=== PATIENT | male | born 1955 | race Caucasian/White ===

== ENCOUNTER → 2018-01-11 | Outpatient (CLI) | payer OTHER ==
[2018-01-11 18:00] LABS: BASO % 0.5 %; BASO ABS # 0.05 K/uL (0-0.2); EOS % 9.4 %; EOS ABS # 0.92 K/uL (0-0.5); HEMATOCRIT 28.1 % (42-52); HEMOGLOBIN 9.1 g/dL (14.0-18.0); IG# 0.02 K/uL (0.00-0.02); LYMPH % 21.5 %; LYMPH ABS # 2.11 K/uL (1.2-3.4); MEAN CELL VOLUME 77.8 fL (80-100); MEAN CORPUSCULAR HEMOGLOBIN 25.2 pg (25-34); MEAN CORPUSCULAR HGB CONC 32.4 g/dl (32-36); MEAN PLATELET VOLUME 9.2 fL (7.4-10.4); MONO % 8.4 %; MONO ABS # 0.82 K/uL (0.11-0.59); PLATELET COUNT 364 K/uL (130-400); RED CELL DISTRIBUTION WIDTH CV 17.6 % (11.5-14.5); RED CELL DISTRIBUTION WIDTH SD 49.8 fL (36.4-46.3); WHITE BLOOD COUNT 9.82 K/uL (4.8-10.8)
[2018-01-11 18:27] LABS: BLOOD UREA NITROGEN 11 mg/dl (7-18); CALCIUM 8.4 mg/dl (8.5-10.1); CARBON DIOXIDE 31 mmol/L (21-32); CREATININE 1.25 mg/dl (0.60-1.40); GLUCOSE 98 mg/dl (70-99); SODIUM 137 mmol/L (136-145)
== END | disposition home or self-care (01) ==
LOC: C.LABMFLN 11:53
PROVIDERS: ATTEND Family Medicine
DX: R35.0 Frequency of micturition (principal); D64.9 Anemia, unspecified

== ENCOUNTER → 2018-01-26 | Outpatient (CLI) | payer OTHER ==
[2018-01-26 18:56] LABS: BASO % 0.3 %; BASO ABS # 0.03 K/uL (0-0.2); EOS % 8.1 %; EOS ABS # 0.73 K/uL (0-0.5); HEMATOCRIT 30.1 % (42-52); HEMOGLOBIN 9.7 g/dL (14.0-18.0); IG# 0.02 K/uL (0.00-0.02); LYMPH % 22.1 %; LYMPH ABS # 1.99 K/uL (1.2-3.4); MEAN CELL VOLUME 76.6 fL (80-100); MEAN CORPUSCULAR HEMOGLOBIN 24.7 pg (25-34); MEAN CORPUSCULAR HGB CONC 32.2 g/dl (32-36); MEAN PLATELET VOLUME 9.2 fL (7.4-10.4); MONO ABS # 0.81 K/uL (0.11-0.59); NEUT % 60.3 %; NEUT ABS # 5.43 K/uL (1.4-6.5); PLATELET COUNT 432 K/uL (130-400); RED CELL DISTRIBUTION WIDTH CV 18.8 % (11.5-14.5); RED CELL DISTRIBUTION WIDTH SD 52.8 fL (36.4-46.3); WHITE BLOOD COUNT 9.01 K/uL (4.8-10.8)
== END | disposition home or self-care (01) ==
LOC: C.LABMFLN 11:57
DX: R35.0 Frequency of micturition (principal); D64.9 Anemia, unspecified

== ENCOUNTER → 2018-06-24 | Outpatient (CLI) | payer OTHER ==
[2018-06-24 12:57] LABS: BASO % 0.3 %; BASO ABS # 0.02 K/uL (0-0.2); EOS % 6.4 %; EOS ABS # 0.48 K/uL (0-0.5); HEMATOCRIT 42.3 % (42-52); IG# 0.02 K/uL (0.00-0.02); LYMPH % 27.6 %; LYMPH ABS # 2.07 K/uL (1.2-3.4); MEAN CELL VOLUME 84.4 fL (80-100); MEAN CORPUSCULAR HEMOGLOBIN 27.9 pg (25-34); MEAN CORPUSCULAR HGB CONC 33.1 g/dl (32-36); MEAN PLATELET VOLUME 9.8 fL (7.4-10.4); MONO % 10.4 %; MONO ABS # 0.78 K/uL (0.11-0.59); NEUT ABS # 4.13 K/uL (1.4-6.5); PLATELET COUNT 277 K/uL (130-400); RED CELL DISTRIBUTION WIDTH CV 15.2 % (11.5-14.5); RED CELL DISTRIBUTION WIDTH SD 46.6 fL (36.4-46.3)
[2018-06-24 13:06] LABS: PTT PATIENT 28.7 SECONDS (21.0-31.0)
[2018-06-24 13:38] LABS: ALBUMIN 3.6 gm/dl (3.4-5.0); ALKALINE PHOSPHATASE 65 U/L (45-117); ALT/SGPT 14 U/L (12-78); AST/SGOT 18 U/L (15-37); BLOOD UREA NITROGEN 14 mg/dl (7-18); CARBON DIOXIDE 28 mmol/L (21-32); CREATININE 1.33 mg/dl (0.60-1.40); GLUCOSE 86 mg/dl (70-99); POTASSIUM 4.1 mmol/L (3.5-5.1); SODIUM 135 mmol/L (136-145); TOTAL PROTEIN 7.8 gm/dl (6.4-8.2)
== END | disposition home or self-care (01) ==
LOC: C.LABMFLN 10:08
PROVIDERS: ATTEND Family Medicine
DX: Z01.812 Encounter for preprocedural laboratory examination (principal)

== ENCOUNTER 2021-07-10 15:14 | Inpatient (IN) ==
[2021-07-10] MEDS ORDERED: LORazepam 1 MG TAB PO STA (16:10)
[2021-07-10 16:16] LABS: Basophils # (auto) 0.04 K/uL (0-0.2); Basophils % (auto) 0.4 %; Eosinophils # (auto) 0.01 K/uL (0-0.5); Eosinophils % (auto) 0.1 %; Hematocrit (blood only) 39.5 % (42-52); Hemoglobin 13.2 g/dL (14.0-18.0); Immature Granulocytes # (auto) 0.02 K/uL (0.00-0.02); Immature Granulocytes % (auto) 0.2 %; Lymphocytes # (auto) 0.99 K/uL (1.2-3.4); Lymphocytes % (auto) 8.7 %; Mean Corpuscular Hemoglobin 30.1 pg (25-34); Mean Corpuscular Hgb Conc 33.4 g/dL (32-36); Mean Corpuscular Volume 90.2 fL (80-100); Mean Platelet Volume 9.8 fL (7.4-10.4); Monocytes # (auto) 0.78 K/uL (0.11-0.59); Monocytes % (auto) 6.8 %; Neutrophils # (auto) 9.55 K/uL (1.4-6.5); Neutrophils % (auto) 83.8 %; Platelet Count 216 K/uL (130-400); RDW Coefficient of Variation 18.4 % (11.5-14.5); RDW Standard Deviation 60.7 fL (36.4-46.3); Red Blood Count 4.38 M/uL (4.7-6.1); White Blood Count 11.39 K/uL (4.8-10.8)
[2021-07-10] MEDS ORDERED: MULTI-VITAMIN INFUSION 10 ML, THIAMINE HCL 100 MG, FOLIC ACID 1 MG in SODIUM CHLORIDE 0... IV ONE (16:16)
[2021-07-10] MEDS ORDERED: LORazepam 2 MG/4 ML VIAL IV STA (16:21)
[2021-07-10] MEDS ORDERED: GABAPENTIN 1200MG ALCOHOL WITHDRAWAL LOAD PO STA (16:21)
[2021-07-10] MEDS ORDERED: GABAPENTIN 600 MG TAB PO ONE ×2 (16:21→22:21)
[2021-07-10 16:31] LABS: Appearance Urine Clear (Clear); Bacteria Urine Automated Negative (Negative); Bilirubin Urine Negative (Negative); Blood Urine 2+ (Negative); Cast Urine Automated 0 /lpf (0-5); Color Urine Yellow; Epithelial Cell Urine Auto 20-30 /lpf (0-5); Glucose Urine UA Negative (Negative); Ketones Urine Negative (Negative); Leukocyte Esterase Urine Negative (Negative); Nitrite Urine Negative (Negative); Protein Urine 2+ (Negative); RBC Urine Automated 0-4 /hpf (0-4); Specific Gravity Urine 1.006 (1.000-1.030); Urobilinogen Urine Negative (Negative); pH Urine 6.5 (4.5-7.5)
[2021-07-10 16:33] LABS: Prothrombin Time 10.4 Seconds (9.0-12.0)
[2021-07-10 16:36] LABS: Albumin Level 3.7 gm/dl (3.4-5.0); BUN Creatinine Ratio 8.1 (10-20); Calcium 10.7 mg/dl (8.5-10.1); Est GFR (African American) 29.7 ml/min; Est GFR (Non-African American) 25.7 ml/min; Potassium 3.3 mmol/L (3.5-5.1)
[2021-07-10] MEDS ORDERED: SODIUM CHLORIDE 0.9% 1000ML 500 ML IV ONE (16:43)
[2021-07-10 16:46] LABS: Albumin Globulin Ratio 0.9 (0.9-2); Bilirubin,Total 0.4 mg/dl (0.2-1); Globulin 4.1 gm/dl (2.5-4.0); Thyroid Stimulating Hormone 0.638 uIu/ml (0.300-4.500); Total Protein 7.8 gm/dl (6.4-8.2)
[2021-07-10 16:48] LABS: Amphetamines+Metham, Urine Neg (Neg); Barbiturates, Urine Neg (Neg); Benzodiazepine, Urine Neg (Neg); Cocaine, Urine Neg (Neg); MDMA (Ecstacy), Urine Neg (Neg); Methadone, Urine Neg (Neg); Opiate, Urine Neg (Neg); Phencyclidine, Urine Neg (Neg)
--- NOTE | 2021-07-10 17:27 | Emergency Department Note ---
History of Present Illness General Chief complaint: Detox Request Stated complaint: REFERRED BY DR. VELOZ FOR ALCOHOL DETOX Time Seen by Provider: 07/10/21 16:14 Source: patient and RN notes reviewed Mode of arrival: ambulatory Limitations: no limitations History of Present Illness Provider complaint: Alcohol detox request Maximum Pain Intensity: 5 This patient is a 66-year-old male who presents to the emergency department with complaints of alcohol withdrawal. Patient states he has been cutting back on his alcohol for the last week after years of excessive alcohol intoxication. Patient states he drinks nearly 1/5 of Yoni Olvera daily and smokes cigarettes. He has a remote history many years ago of marijuana and cocaine use but this was many years ago. He denies any illicit substances recently. Patient states he contacted his sister today and expressed his desire to stop drinking. He has been drinking "just enough" to prevent the shakes. He states he has vomited several times over the course of the week, including his milk this morning. Home Medications Medication Instructions Recorded Confirmed Type albuterol sulfate 90 mcg/actuation 2 puffs INHALATION Q4H PRN #18 gm 06/13/19 07/10/21 Rx aerosol inhaler multivitamin (Multiple Vitamins) 1 tab PO QAM 06/13/19 07/10/21 History nitroglycerin 0.4 mg sublingual 0.4 mg SL Q5M PRN #25 tab 06/13/19 07/10/21 Rx tablet omega-3 acid ethyl esters 1 gram 1 cap PO DAILY cap 06/13/19 07/10/21 History capsule cetirizine 10 mg tablet 10 mg PO DAILY PRN #90 tab 07/10/19 07/10/21 Rx promethazine 12.5 mg tablet 12.5 mg PO Q6H PRN #30 tab 12/28/19 07/10/21 Rx erythromycin 5 mg/gram (0.5 %) eye 0.5 inch OPHTHALMIC (EYE) TID #1 g 12/10/20 07/10/21 Rx ointment famotidine 40 mg tablet (Pepcid) 40 mg PO QAM #90 tab 12/10/20 07/10/21 Rx rosuvastatin 40 mg tablet 40 mg PO QPM #90 tab 12/27/20 07/10/21 Rx apixaban 5 mg tablet 5 mg PO BID #60 tab 02/28/21 07/10/21 Rx fluticasone propionate 50 1 spray INTRANASAL BID #18.2 gm 04/15/21 07/10/21 Rx mcg/actuation nasal spray,suspension acyclovir 5 % topical ointment 1 applic TOPICAL .COMPLEX 7 Days 04/23/21 07/10/21 Rx #5 g albuterol sulfate 90 mcg/actuation 2 puff INHALATION Q6H PRN #8.5 g 05/19/21 07/10/21 Rx aerosol inhaler (ProAir HFA) fluticasone fur. 100 mcg-umeclid 1 inh INHALATION DAILY 05/19/21 07/10/21 History 62.5 mcg-vilant 25 mcg inhalat.powder (Trelegy Ellipta) azithromycin 500 mg tablet 500 mg PO DAILY 05/20/21 07/10/21 History chlordiazepoxide HCl 10 mg capsule 10 mg PO TID #30 cap 05/28/21 07/10/21 Rx montelukast 10 mg tablet 10 mg PO HS #90 tab 06/02/21 07/10/21 Rx pantoprazole 40 mg tablet,delayed 40 mg PO DAILY #30 tab 06/18/21 07/10/21 Rx release (Protonix) prednisone 5 mg tablet 5 mg PO QAM #30 tab 07/08/21 07/10/21 Rx amlodipine 2.5 mg tablet 2.5 mg PO DAILY 07/10/21 07/10/21 History folic acid 1 mg tablet 1 mg PO DAILY 07/10/21 07/10/21 History thiamine HCl (vitamin B1) 100 mg 100 mg PO DAILY 07/10/21 07/10/21 History tablet Allergies Allergy/AdvReac Type Severity Reaction Status Date / Time Penicillins Allergy Severe Anaphylaxis Verified 07/10/21 17:49 ciprofloxacin Allergy Intermediate hives & Verified 07/10/21 17:49 nausea codeine AdvReac Mild Vomiting Verified 07/10/21 17:49 hydromorphone [From Dilaudid] AdvReac Mild Vomiting Verified 07/10/21 17:49 metronidazole AdvReac Mild N&V Verified 07/10/21 17:49 morphine AdvReac Mild N&V Verified 07/10/21 17:49 Tetracyclines AdvReac Mild Vomiting Verified 07/10/21 17:49 Past Med/Surg History Medical History Allergic dermatitis reason for daily Prednisone Anemia Asthmatic bronchitis Cervical lymphadenopathy CHF (congestive heart failure) Cholelithiasis Chronic GERD Chronic steroid use due to unexplained hives at times, believed to be an allergy, have not been able to pin-point exact allergy Colon polyps COPD, mild Coronary artery disease involving coronary bypass graft Diverticulitis, colon Empyema lung Hereditary and idiopathic peripheral neuropathy Hiatal hernia History of foreign body in eye metal - removed with a laser Hyperlipidemia Hypertension IBS (irritable bowel syndrome) Incisional hernia Myalgia Myocardial Infarction 2007 - CABG Obstructive sleep apnea non-compliant, no machine Osteoarthrosis Pneumonia hx Pulmonary embolism reason for eliquis, July 2019. Retained ureteral stent Tobacco abuse Urticaria Surgical History H/O hemorrhoidectomy History of cardiac cath History of cataract surgery BILATERAL History of colonoscopy History of coronary artery bypass graft x3 vessels, 2007 at [place], [place]. Follows with Dr. Alexander History of cystoscopy with stent replacements History of dental surgery History of esophagogastroduodenoscopy (EGD) History of heart artery stent x2 prior to 2007. Hx of tonsillectomy S/P exploratory laparotomy with repair of left ureter, partial colon resection and incisional hernia repair with mesh. (November 2018) S/P laparotomy Nov 2017, during colon resection left ureter was connected to colon, attempted to seperate, unable and "nicked" the ureter. Placed a ureteral stent (changed periodically) Status post laparoscopic colectomy (2017) r/t diverticulitis --> turned to open laparotomy due to complications Family History Father Thyroid disease Mother Asthma Heart disease Depression Hypertension Dyslipidemia Thyroid disease Sister Heart disease Asthma Pulmonary embolism Grandfather (Maternal) Myocardial infarction Denies family history of Ovarian cancer Prostate cancer Breast cancer Lung cancer Colorectal cancer Social History (Updated 07/10/21 @ 17:43 by Jaclyn Dowling MD) Smoking Status: Current every day smoker Tobacco Type: Cigarettes packs per day: 0.5; Years Smoked: 46; Cigarettes Per Day: 10-12; Second Hand Exposure: No; Hx Alcohol Use: Yes Alcohol type: beer and hard liquor Alcohol type Comment: 1 /5 bottle Yoni Olvera/day Alcohol Intake Frequency: 4 or More x per/Week Hx Substance Use: No Preferred Language: Bulgarian Communication Ability: Effective Hearing Ability: Normal Data Management Engineer Required: No Beliefs That Will Affect Care: None marital status: Legally Current Living Situation: Family current occupational status: retired How many Children do You have: 2 Feels Safe at Home: Yes Childhood Exposure to Second-Hand Smoke: No Diet Comment: regular caffeine: Yes (2 cups of tea or coffee) during the past year weight has: remained stable Dental Care, Regularly: Yes Physical Activity Frequency: Does not Exercise Seatbelt Use: never Sunscreen Use: No Assistive Devices: Denture - Upper and Glasses Review of Systems See HPI for pertinent positives & negatives. and A total of 10 systems reviewed and were otherwise negative Physical Exam Vital Signs Vital Signs - 24 hr 07/10/21 15:44 07/10/21 16:15 07/10/21 16:21 Temperature 36.9 C Temperature Source Temporal Artery Scan Pulse Rate 100 H 78 Respiratory Rate 18 24 Blood Pressure 122/78 151/73 H Blood Pressure Mean 92 99 Pulse Oximetry 97 96 95 Oxygen Delivery Method Room Air Room Air Room Air Sepsis Recent Fever Within 48 Hours No Sepsis New/Unexplained Change in Mental Status No Sepsis Action Taken by Nursing No Action Required 07/10/21 16:30 07/10/21 17:30 Temperature Temperature Source Pulse Rate 73 71 Respiratory Rate 24 18 Blood Pressure 140/71 135/68 Blood Pressure Mean 94 90 Pulse Oximetry 95 95 Oxygen Delivery Method Room Air Room Air Sepsis Recent Fever Within 48 Hours Sepsis New/Unexplained Change in Mental Status Sepsis Action Taken by Nursing Vital signs reviewed. General: Chronically ill-appearing 66-year-old male, shaky but in no distress. HEENT: No scleral icterus, PERRLA, neck supple. Atraumatic. Cardiovascular: Regular rate and rhythm, no extra sounds. Pulmonary: Clear to auscultation bilaterally, normal work of breathing. Abdomen: Soft, nontender, nondistended, positive bowel sounds. Musculoskeletal: Atraumatic, minimal peripheral edema. Neurologic: Patient awake alert and oriented x 3, positive peripheral tremors Skin: Warm, dry, no rash Course Administered Medications Discontinued Medications Gabapentin (Gabapentin 600 Mg Tab) 1,200 mg PO NOW ONE Stop: 07/10/21 16:22 Last Admin: 07/10/21 16:31 Dose: 1,200 mg Documented by: [id number] Multivitamins 10 ml/ Thiamine HCl 100 mg/ Folic Acid 1 mg/Sodium Chloride 1,011.2 mls @ 1,011.2 mls/hr IV .Q1H ONE Stop: 07/10/21 17:15 Last Admin: 07/10/21 17:43 Dose: 1,011.2 mls/hr Documented by: [id number] Lorazepam (Ativan) 2 mg in 4 mls @ 4 mls/min IV NOW STA Stop: 07/10/21 16:22 Last Admin: 07/10/21 16:31 Dose: 4 mls/min Documented by: [id number] Sodium Chloride (Nss 1000ml) 500 mls @ 999 mls/hr IV .Q31M ONE Stop: 07/10/21 17:13 Last Infusion: 07/10/21 17:54 Dose: 0 mls/hr Documented by: [id number] Admin: 07/10/21 17:06 Dose: 999 mls/hr Documented by: [id number] Lorazepam (Lorazepam 1 Mg Tab) 1 mg PO NOW STA Stop: 07/10/21 16:11 Last Admin: 07/10/21 16:52 Dose: Not Given Documented by: [id number] Medical Decision Making Differential Diagnosis Alcohol intoxication, alcohol withdrawal, dehydration, toxicologic, infection, hypoglycemia, electrolyte abnormalities, cardiac sources, intracerebral event, neurologic, trauma, as well as other pathologies. Medical Records Attestation: I reviewed the patient's medical records. Home Medications Current Medication List: was personally reviewed by me Laboratory Data Attestation: I reviewed the patient's lab results. Result diagrams: 07/10/21 15:57 07/10/21 15:57 Lab Results 07/10/21 07/10/21 07/10/21 Range/Units 15:57 15:57 15:57 WBC 11.39 H (4.8-10.8) K/uL RBC 4.38 L (4.7-6.1) M/uL Hgb 13.2 L (14.0-18.0) g/dL Hct 39.5 L (42-52) % MCV 90.2 (80-100) fL MCH 30.1 (25-34) pg MCHC 33.4 (32-36) g/dL RDW Std Deviation 60.7 H (36.4-46.3) fL RDW Coeff of Ad 18.4 H (11.5-14.5) % Plt Count 216 (130-400) K/uL MPV 9.8 (7.4-10.4) fL Immature Gran % (Auto) 0.2 % Neut % (Auto) 83.8 % Lymph % (Auto) 8.7 % [place] % (Auto) 6.8 % Eos % (Auto) 0.1 % Baso % (Auto) 0.4 % Neut # (Auto) 9.55 H (1.4-6.5) K/uL Lymph # (Auto) 0.99 L (1.2-3.4) K/uL [place] # (Auto) 0.78 H (0.11-0.59) K/uL Eos # (Auto) 0.01 (0-0.5) K/uL Baso # (Auto) 0.04 (0-0.2) K/uL Immature Gran # (Auto) 0.02 (0.00-0.02) K/uL PT (9.0-12.0) Seconds INR (0.9-1.1) Sodium 138 (136-145) mmol/L Potassium 3.3 L (3.5-5.1) mmol/L Chloride 102 (98-107) mmol/L Carbon Dioxide 26 (21-32) mmol/L Anion Gap 10.0 (3-11) BUN 20 H (7-18) mg/dl Creatinine 2.51 H (0.6-1.4) mg/dl Est Cr Clr Drug Dosing 30.0 ml/min Est GFR ( Amer) 29.7 ml/min Est GFR (Non-Af Amer) 25.7 ml/min BUN/Creatinine Ratio 8.1 L (10-20) Glucose 128 H (70-99) mg/dl Calcium 10.7 H (8.5-10.1) mg/dl Total Bilirubin 0.4 (0.2-1) mg/dl AST 66 H (15-37) U/L ALT 60 (12-78) U/L Alkaline Phosphatase 66 (45-117) U/L Total Protein 7.8 (6.4-8.2) gm/dl Albumin 3.7 (3.4-5.0) gm/dl Globulin 4.1 H (2.5-4.0) gm/dl Albumin/Globulin Ratio 0.9 (0.9-2) TSH 0.638 (0.300-4.500) uIu/ml Urine Color Urine Appearance (Clear) Urine pH (4.5-7.5) Ur Specific [place] (1.000-1.030) Urine Protein (Negative) Urine Glucose (UA) (Negative) Urine Ketones (Negative) Urine Blood (Negative) Urine Nitrite (Negative) Urine Bilirubin (Negative) Urine Urobilinogen (Negative) Ur Leukocyte Esterase (Negative) Urine WBC (Auto) (0-5) /hpf Urine RBC (Auto) (0-4) /hpf U Hyaline Cast (Auto) (0-5) /lpf U Epithel Cells (Auto) (0-5) /lpf Urine Bacteria (Auto) (Negative) Urine Opiates Screen (Neg) Ur Methadone, Qual (Neg) Urine Barbiturates (Neg) Ur Phencyclidine (PCP) (Neg) U Amphetamin/Meth Scrn (Neg) MDMA (Ecstasy) Screen (Neg) U Benzodiazepines Scrn (Neg) Ur Cocaine Metabolite (Neg) U Marijuana (THC) Screen (Neg) Ethyl Alcohol mg/dL 234.8 H (0-3) mg/dl COVID-19 Eval Order 07/10/21 07/10/21 07/10/21 Range/Units 16:00 16:00 16:04 WBC (4.8-10.8) K/uL RBC (4.7-6.1) M/uL Hgb (14.0-18.0) g/dL Hct (42-52) % MCV (80-100) fL MCH (25-34) pg MCHC (32-36) g/dL RDW Std Deviation (36.4-46.3) fL RDW Coeff of Ad (11.5-14.5) % Plt Count (130-400) K/uL MPV (7.4-10.4) fL Immature Gran % (Auto) % Neut % (Auto) % Lymph % (Auto) % [place] % (Auto) % Eos % (Auto) % Baso % (Auto) % Neut # (Auto) (1.4-6.5) K/uL Lymph # (Auto) (1.2-3.4) K/uL [place] # (Auto) (0.11-0.59) K/uL Eos # (Auto) (0-0.5) K/uL Baso # (Auto) (0-0.2) K/uL Immature Gran # (Auto) (0.00-0.02) K/uL PT 10.4 (9.0-12.0) Seconds INR 1.0 (0.9-1.1) Sodium (136-145) mmol/L Potassium (3.5-5.1) mmol/L Chloride (98-107) mmol/L Carbon Dioxide (21-32) mmol/L Anion Gap (3-11) BUN (7-18) mg/dl Creatinine (0.6-1.4) mg/dl Est Cr Clr Drug Dosing ml/min Est GFR ( Amer) ml/min Est GFR (Non-Af Amer) ml/min BUN/Creatinine Ratio (10-20) Glucose (70-99) mg/dl Calcium (8.5-10.1) mg/dl Total Bilirubin (0.2-1) mg/dl AST (15-37) U/L ALT (12-78) U/L Alkaline Phosphatase (45-117) U/L Total Protein (6.4-8.2) gm/dl Albumin (3.4-5.0) gm/dl Globulin (2.5-4.0) gm/dl Albumin/Globulin Ratio (0.9-2) TSH (0.300-4.500) uIu/ml Urine Color Yellow Urine Appearance Clear (Clear) Urine pH 6.5 (4.5-7.5) Ur Specific [place] 1.006 (1.000-1.030) Urine Protein 2+ H (Negative) Urine Glucose (UA) Negative (Negative) Urine Ketones Negative (Negative) Urine Blood 2+ H (Negative) Urine Nitrite Negative (Negative) Urine Bilirubin Negative (Negative) Urine Urobilinogen Negative (Negative) Ur Leukocyte Esterase Negative (Negative) Urine WBC (Auto) 1-5 (0-5) /hpf Urine RBC (Auto) 0-4 (0-4) /hpf U Hyaline Cast (Auto) 0 (0-5) /lpf U Epithel Cells (Auto) 20-30 H (0-5) /lpf Urine Bacteria (Auto) Negative (Negative) Urine Opiates Screen Neg (Neg) Ur Methadone, Qual Neg (Neg) Urine Barbiturates Neg (Neg) Ur Phencyclidine (PCP) Neg (Neg) U Amphetamin/Meth Scrn Neg (Neg) MDMA (Ecstasy) Screen Neg (Neg) U Benzodiazepines Scrn Neg (Neg) Ur Cocaine Metabolite Neg (Neg) U Marijuana (THC) Screen Neg (Neg) Ethyl Alcohol mg/dL (0-3) mg/dl COVID-19 Eval Order 07/10/21 Range/Units 17:05 WBC (4.8-10.8) K/uL RBC (4.7-6.1) M/uL Hgb (14.0-18.0) g/dL Hct (42-52) % MCV (80-100) fL MCH (25-34) pg MCHC (32-36) g/dL RDW Std Deviation (36.4-46.3) fL RDW Coeff of Ad (11.5-14.5) % Plt Count (130-400) K/uL MPV (7.4-10.4) fL Immature Gran % (Auto) % Neut % (Auto) % Lymph % (Auto) % [place] % (Auto) % Eos % (Auto) % Baso % (Auto) % Neut # (Auto) (1.4-6.5) K/uL Lymph # (Auto) (1.2-3.4) K/uL [place] # (Auto) (0.11-0.59) K/uL Eos # (Auto) (0-0.5) K/uL Baso # (Auto) (0-0.2) K/uL Immature Gran # (Auto) (0.00-0.02) K/uL PT (9.0-12.0) Seconds INR (0.9-1.1) Sodium (136-145) mmol/L Potassium (3.5-5.1) mmol/L Chloride (98-107) mmol/L Carbon Dioxide (21-32) mmol/L Anion Gap (3-11) BUN (7-18) mg/dl Creatinine (0.6-1.4) mg/dl Est Cr Clr Drug Dosing ml/min Est GFR ( Amer) ml/min Est GFR (Non-Af Amer) ml/min BUN/Creatinine Ratio (10-20) Glucose (70-99) mg/dl Calcium (8.5-10.1) mg/dl Total Bilirubin (0.2-1) mg/dl AST (15-37) U/L ALT (12-78) U/L Alkaline Phosphatase (45-117) U/L Total Protein (6.4-8.2) gm/dl Albumin (3.4-5.0) gm/dl Globulin (2.5-4.0) gm/dl Albumin/Globulin Ratio (0.9-2) TSH (0.300-4.500) uIu/ml Urine Color Urine Appearance (Clear) Urine pH (4.5-7.5) Ur Specific [place] (1.000-1.030) Urine Protein (Negative) Urine Glucose (UA) (Negative) Urine Ketones (Negative) Urine Blood (Negative) Urine Nitrite (Negative) Urine Bilirubin (Negative) Urine Urobilinogen (Negative) Ur Leukocyte Esterase (Negative) Urine WBC (Auto) (0-5) /hpf Urine RBC (Auto) (0-4) /hpf U Hyaline Cast (Auto) (0-5) /lpf U Epithel Cells (Auto) (0-5) /lpf Urine Bacteria (Auto) (Negative) Urine Opiates Screen (Neg) Ur Methadone, Qual (Neg) Urine Barbiturates (Neg) Ur Phencyclidine (PCP) (Neg) U Amphetamin/Meth Scrn (Neg) MDMA (Ecstasy) Screen (Neg) U Benzodiazepines Scrn (Neg) Ur Cocaine Metabolite (Neg) U Marijuana (THC) Screen (Neg) Ethyl Alcohol mg/dL (0-3) mg/dl COVID-19 Eval Order Covid19 at [facility] ECG Data Attestation: I personally reviewed and interpreted this ECG as follows: Indication: + weakness Rate (beats per minute): 74 Rhythm: + normal sinus ECG Intervals/blocks: + Normal QT-c ECG [place]: + Normal ECG ST segments: + Normal ST segments and + Nonspecific ST abnormalities ECG Findings: + Q waves (Anterior); no PACs or no PVCs Blood Pressure Blood Pressure Findings: Elevated blood pressure Blood Pressure Disposition: further management by hospitalist [email or web address] Narrative This patient was evaluate and appeared to be in no significant distress. IV access was obtained and laboratory work was drawn. An order for cardiac humberto toring was placed and the patient is noted to be in a normal sinus rhythm at 78 bpm. Patient was hydrated with normal saline solution 500 cc bolus. A banana bag was ordered. Patient was medicated with 2 mg of IV Ativan and a gabapentin alcohol withdrawal 1200 mg p.o. load. Patient's blood alcohol is noted to be 234 and peripheral shakes are noted. Patient's creatinine is noted to be 2.5 from a baseline of 1.2. Bladder scan reveals 340 mL of urine in the bladder. Patient has significant medical issues including CAD status post CABG, chronic kidney disease, atrial fibrillation, COPD and CHF. He also has a history of PE and heavy tobacco use. I do feel is in the patient's best interest to detox from alcohol while hospitalized. His case was discussed with the hospitalist service who will evaluate the patient for admission and further management. Impression & Plan Alcohol withdrawal, RICH (acute kidney injury) Discharge Plan Visit Data Chief Complaint: Detox Request Stated Complaint: REFERRED BY DR. VELOZ FOR ALCOHOL DETOX ED Provider: Jaclyn Dowling Discharge Problem: Alcohol withdrawal, RICH (acute kidney injury) Forms Stand Alone Forms: Community Health, Suicide Prevention Resources Prescriptions Prescriptions: No Action cetirizine 10 mg tablet 10 mg PO DAILY PRN (Reason: allergy symptoms) Qty: 90 RF: 1 promethazine 12.5 mg tablet 12.5 mg PO Q6H PRN (Reason: nausea and vomiting) Qty: 30 RF: 0 rosuvastatin 40 mg tablet 40 mg PO QPM Qty: 90 RF: 3 apixaban 5 mg tablet 5 mg PO BID Qty: 60 RF: 5 fluticasone propionate 50 mcg/actuation spray,suspension 1 spray intranasal BID Qty: 18.2 RF: 5 azithromycin 500 mg tablet 500 mg PO DAILY RF: 0 chlordiazepoxide HCl 10 mg capsule 10 mg PO TID Qty: 30 RF: 0 montelukast 10 mg tablet 10 mg PO HS Qty: 90 RF: 3 pantoprazole [Protonix] 40 mg tablet,delayed release (DR/EC) 40 mg PO DAILY Qty: 30 RF: 2 prednisone 5 mg tablet 5 mg PO QAM Qty: 30 RF: 0 multivitamin [Multiple Vitamins] tablet 1 tab PO QAM RF: 0 albuterol sulfate 90 mcg/actuation HFA aerosol inhaler 2 puffs inhalation Q4H PRN (Reason: shortness of breath or wheezing) Qty: 18 RF: 5 nitroglycerin 0.4 mg tablet, sublingual 0.4 mg SL Q5M PRN (Reason: chest pain x3 doses, if no relief call 911) Qty: 25 RF: 1 omega-3 acid ethyl esters 1 gram capsule 1 cap PO DAILY RF: 0 famotidine [Pepcid] 40 mg tablet 40 mg PO QAM Qty: 90 RF: 3 acyclovir 5 % ointment 1 applic topical .COMPLEX 7 Days Qty: 5 RF: 0 Trelegy Ellipta 100-62.5-25 mcg blister with device 1 inh inhalation DAILY RF: 0 albuterol sulfate [ProAir HFA] 90 mcg/actuation HFA aerosol inhaler 2 puff inhalation Q6H PRN (Reason: shortness of breath or wheezing) Qty: 8.5 RF: 5 erythromycin 5 mg/gram (0.5 %) ointment 0.5 inch ophthalmic (eye) TID Qty: 1 RF: 0 folic acid 1 mg tablet 1 mg PO DAILY RF: 0 thiamine HCl (vitamin B1) 100 mg tablet 100 mg PO DAILY RF: 0 amlodipine 2.5 mg tablet 2.5 mg PO DAILY RF: 0 Referrals Referrals: Thom Veloz DO [Primary Care Provider] - Discharge Problem: Alcohol withdrawal Qualifiers: Complication of substance-induced condition: uncomplicated Qualified Code(s): F10.230 - Alcohol dependence with withdrawal, uncomplicated
[2021-07-10] MEDS ORDERED: LORazepam 2 MG/4 ML VIAL IV PRN (18:24)
[2021-07-10] MEDS ORDERED: GABAPENTIN 600MG ALCOHOL WITHDRAWAL LOAD PO STA (19:27)
[2021-07-10] MEDS ORDERED: POTASSIUM CHLORIDE CRTAB 20 MEQ TABCR PO ONE (19:48)
--- NOTE | 2021-07-10 20:10 | History & Physical Report ---
Date of Service July 10, 2021 Assessment & Plan (1) Alcohol withdrawal: Plan: Admitted as he endorses he wants to stop drinking - reports 42 years of drinking with 2-3 attempts at stopping - Continue gabapentin and Ativan coverage - He has been on thiamine and folate as prescribed for his discharge from [place] - he was also prescribed Librium as outpatient there as well- could add this on if he needs - With his cardiac disease and if symptoms increase - consider adding on titratable BB for cardiac risk reduction - Banana bag administered in [facility] - (2) Afib: Plan: diagnosed in 2019 and converted in house on sotalol- remains in NSR - He is on Apixaban for his history of PE - No rate controlling agents at this time (3) CAD (coronary artery disease): Plan: As above per HPI - Continue amlodipine for his HTN - Continue rosuvastatin 40 daily - likely not on an AMANDA secondary to his renal function - Consider adding low dose BB in place of his amlodipine if he gets HTN/Tachycardic with his withdraw - add back daily asa- recently stopped as patient stopped taking this (4) Hypertension: Plan: As above (5) CKD (chronic kidney disease), stage III: Plan: As above his baseline PHARMACEUTICAL DETAILER is 1.3-1.5- likely related to his nausea and vomiting with decrease oral intake - Bun is stable - follow renal indices - avoid nephrotoxic medications and if needed, limit exposure time. (6) COPD, mild: Plan: Continue albuterol prn - continue equivalent or his Trelegy daily - Continue his AZT MWF- can likely wean down- started on 13august (7) Obstructive sleep apnea: Plan: Non complaint- follow while in house (8) Cold sore: Plan: Continue his acyclovir as needed (9) Hyperlipidemia: Plan: Continue rosuvastatin 40 mg daily (10) Allergic dermatitis: Plan: Continue prednisone 5mg daily (11) Tremor: Plan: Chronic with his alcohol may confound his AWWS follow total symptomatology. History of Present Illness Primary Care Provider: Thom Babcock DO 66 YOM with past medical history of: CAD, HTN, HLD, Afib(on apixaban), CABG, ETOH abuse, ETOH withdraw, GERD, COPD, allergic rhinitis, DVT/PE, LITA, active smoker, anxiety. Patient comes to the [facility] today as he wishes to stop drinking alcohol, he reports that he has been drinking since he was 14 years old. Mainly drinks beer and liquor. Reports no other drugs and hasn't used any since "many many years ago". He has been trying to cut his drinking down, and only drinks enough to take away his tremors. He has been having some vomiting today, he has quit before but reports he re-lapsed x2. He does not remember ever having a seizure of delirium tremors. He reports his last drink as this morning and his ETOH level is 234 on admisison. Patient was recently discharged from [facility] for a COPD exacerbation and placed on AZT M,W,F schedule. Patient was already started on Gabapentin and Ativan protocol in the EMD. Patient will be admitted for continued treatment and support of his ETOH withdraw he would be high risk for DTs based off his history. Patient had a CABGx3 in 2007 (GOMEZ-LAD, SVG to ramus and RCA). In march he had a stress test that was abnormal, he then had a cardiac cath on 04/16/21. This revealed that the saphenous vein grafts which were reported cannot be cannulated and were not found on aortography and are assumed closed. The CHANTAL graft to the LAD is atretic and nonfunctional distally. The LAD, left circumflex and ramus arteries have nonobstructive disease and are patent. The nondominant right coronary artery is patent. He is continued on medical management. He has also been on prednisone for the past 3-4 months for what he reports as a bump on his chin that will not go away and he has been continually picking at. He has received his COVID vaccine and his test on admission is NEGATIVE. Allergies Allergy/AdvReac Type Severity Reaction Status Date / Time Penicillins Allergy Severe Anaphylaxis Verified 07/10/21 17:49 ciprofloxacin Allergy Intermediate hives & Verified 07/10/21 17:49 nausea codeine AdvReac Mild Vomiting Verified 07/10/21 17:49 hydromorphone [From Dilaudid] AdvReac Mild Vomiting Verified 07/10/21 17:49 metronidazole AdvReac Mild N&V Verified 07/10/21 17:49 morphine AdvReac Mild N&V Verified 07/10/21 17:49 Tetracyclines AdvReac Mild Vomiting Verified 07/10/21 17:49 Home Medications Medication Instructions Recorded Confirmed Type albuterol sulfate 90 mcg/actuation 2 puffs INHALATION Q4H PRN #18 gm 06/13/19 07/10/21 Rx aerosol inhaler multivitamin (Multiple Vitamins) 1 tab PO QAM 06/13/19 07/10/21 History nitroglycerin 0.4 mg sublingual 0.4 mg SL Q5M PRN #25 tab 06/13/19 07/10/21 Rx tablet omega-3 acid ethyl esters 1 gram 1 cap PO DAILY cap 06/13/19 07/10/21 History capsule cetirizine 10 mg tablet 10 mg PO DAILY PRN #90 tab 07/10/19 07/10/21 Rx promethazine 12.5 mg tablet 12.5 mg PO Q6H PRN #30 tab 12/28/19 07/10/21 Rx erythromycin 5 mg/gram (0.5 %) eye 0.5 inch OPHTHALMIC (EYE) TID #1 g 12/10/20 07/10/21 Rx ointment famotidine 40 mg tablet (Pepcid) 40 mg PO QAM #90 tab 12/10/20 07/10/21 Rx rosuvastatin 40 mg tablet 40 mg PO QPM #90 tab 12/27/20 07/10/21 Rx apixaban 5 mg tablet 5 mg PO BID #60 tab 02/28/21 07/10/21 Rx fluticasone propionate 50 1 spray INTRANASAL BID #18.2 gm 04/15/21 07/10/21 Rx mcg/actuation nasal spray,suspension acyclovir 5 % topical ointment 1 applic TOPICAL .COMPLEX 7 Days 04/23/21 07/10/21 Rx #5 g albuterol sulfate 90 mcg/actuation 2 puff INHALATION Q6H PRN #8.5 g 05/19/21 07/10/21 Rx aerosol inhaler (ProAir HFA) fluticasone fur. 100 mcg-umeclid 1 inh INHALATION DAILY 05/19/21 07/10/21 History 62.5 mcg-vilant 25 mcg inhalat.powder (Trelegy Ellipta) azithromycin 500 mg tablet 500 mg PO DAILY 05/20/21 07/10/21 History chlordiazepoxide HCl 10 mg capsule 10 mg PO TID #30 cap 05/28/21 07/10/21 Rx montelukast 10 mg tablet 10 mg PO HS #90 tab 06/02/21 07/10/21 Rx pantoprazole 40 mg tablet,delayed 40 mg PO DAILY #30 tab 06/18/21 07/10/21 Rx release (Protonix) prednisone 5 mg tablet 5 mg PO QAM #30 tab 07/08/21 07/10/21 Rx amlodipine 2.5 mg tablet 2.5 mg PO DAILY 07/10/21 07/10/21 History folic acid 1 mg tablet 1 mg PO DAILY 07/10/21 07/10/21 History thiamine HCl (vitamin B1) 100 mg 100 mg PO DAILY 07/10/21 07/10/21 History tablet Past Med/Surg History Medical History Allergic dermatitis reason for daily Prednisone Anemia Asthmatic bronchitis Cervical lymphadenopathy CHF (congestive heart failure) Cholelithiasis Chronic GERD Chronic steroid use due to unexplained hives at times, believed to be an allergy, have not been able to pin-point exact allergy Colon polyps COPD, mild Coronary artery disease involving coronary bypass graft Diverticulitis, colon Empyema lung Hereditary and idiopathic peripheral neuropathy Hiatal hernia History of foreign body in eye metal - removed with a laser Hyperlipidemia Hypertension IBS (irritable bowel syndrome) Incisional hernia Myalgia Myocardial Infarction 2007 - CABG Obstructive sleep apnea non-compliant, no machine Osteoarthrosis Pneumonia hx Pulmonary embolism reason for eliquis, July 2019. Retained ureteral stent Tobacco abuse Urticaria Surgical History H/O hemorrhoidectomy History of cardiac cath History of cataract surgery BILATERAL History of colonoscopy History of coronary artery bypass graft x3 vessels, 2007 at [place], [place]. Follows with Dr. Alexander History of cystoscopy with stent replacements History of dental surgery History of esophagogastroduodenoscopy (EGD) History of heart artery stent x2 prior to 2007. Hx of tonsillectomy S/P exploratory laparotomy with repair of left ureter, partial colon resection and incisional hernia repair with mesh. (November 2018) S/P laparotomy Nov 2017, during colon resection left ureter was connected to colon, attempted to seperate, unable and "nicked" the ureter. Placed a ureteral stent (changed periodically) Status post laparoscopic colectomy (2017) r/t diverticulitis --> turned to open laparotomy due to complications Family History Father Thyroid disease Mother Asthma Heart disease Depression Hypertension Dyslipidemia Thyroid disease Sister Heart disease Asthma Pulmonary embolism Grandfather (Maternal) Myocardial infarction Denies family history of Ovarian cancer Prostate cancer Breast cancer Lung cancer Colorectal cancer Social History Smoking Status: Current every day smoker Tobacco Type: Cigarettes packs per day: 0.5; Years Smoked: 46; Cigarettes Per Day: 10-12; Second Hand Exposure: No; Hx Alcohol Use: Yes Alcohol type: beer and hard liquor Alcohol type Comment: 1/5 bottle Yoni Olvera/day Alcohol Intake Frequency: 4 or More x per/Week Hx Substance Use: No Preferred Language: Tajik Communication Ability: Effective Hearing Ability: Normal Alcoholic Counselor Required: No Beliefs That Will Affect Care: None marital status: Legally Current Living Situation: Family current occupational status: retired How many Children do You have: 2 Feels Safe at Home: Yes Childhood Exposure to Second-Hand Smoke: No Diet Comment: regular caffeine: Yes (2 cups of tea or coffee) during the past year weight has: remained stable Dental Care, Regularly: Yes Physical Activity Frequency: Does not Exercise Seatbelt Use: never Sunscreen Use: No Assistive Devices: Denture - Upper and Glasses Review of Systems Review of Systems: REVIEW OF SYSTEMS: Constitutional: No fever, sweats or chills Eyes: No diplopia, no worsening or blurred vision ENT: normal hearing, no trouble swallowing Respiratory: (+) chronic cough, sputum, dyspnea at rest or on exertion Cardiovascular: No chest pain, tightness or palpitations Abdomen: No pain, nausea, vomiting, diarrhea or constipation Musculoskeletal: No joint pain, calf pain, swelling Neurologic: No weakness, numbness/tingling, or balance problems Psychiatric: (+) anxiety or depression Skin: (+) rash or itch Physical Exam Physical Exam: PHYSICAL EXAM: General: lightly sedated, easily arouseable, no apparent distress Head: Normocephalic, atraumatic ENT: PERRL, EOMI, no pharyngeal exudate, mucous membranes moist Neuro: AAO x 3, speech clear and appropriate, strength intact bilaterally 5/5, sensation intact and equal all extremities and dermatomes, no pronator drift Chest: equal rise and fall of the chest, no accessory muscle use, no heaves or thrills, scattered rhonchi and mild expiratory wheeze, on room air, Cardiac: Regular rate and rhythm, telemetry reviewed, skin warm dry, cap refill <3 seconds, peripheral pulses +2 no JVD, no murmur, no edema GI: NABS x 4 quadrants, soft, nontender to palpation, no rebound, guarding or tenderness : Spontaneously voiding, no pain, no CVA tenderness, Extremities: Normal inspection, no peripheral edema or erythema, calfs nontender to palpation Psych: Normal mood and affect Skin: scab on chin Results & Data Results & Data ([facility]) Vital Signs (Past 12 Hours) Vital Signs Temp Pulse Resp BP Pulse Ox 07/10/21 18:30 73 18 154/80 H 96 07/10/21 18:00 70 18 146/72 H 96 07/10/21 17:30 75 18 135/68 96 07/10/21 17:00 86 16 133/75 96 07/10/21 16:30 73 24 140/71 95 07/10/21 16:21 78 24 151/73 H 95 07/10/21 16:15 96 07/10/21 15:44 36.9 C 100 H 18 122/78 97 Laboratory Results Abnormal Labs 07/10/21 07/10/21 07/10/21 15:57 15:57 15:57 WBC 11.39 H RBC 4.38 L Hgb 13.2 L Hct 39.5 L RDW Std Deviation 60.7 H RDW Coeff of Ad 18.4 H Neut # (Auto) 9.55 H Lymph # (Auto) 0.99 L Callaway # (Auto) 0.78 H Potassium 3.3 L BUN 20 H Creatinine 2.51 H BUN/Creatinine Ratio 8.1 L Glucose 128 H Calcium 10.7 H AST 66 H Globulin 4.1 H Urine Protein Urine Blood U Epithel Cells (Auto) Ethyl Alcohol mg/dL 234.8 H 07/10/21 16:00 WBC RBC Hgb Hct RDW Std Deviation RDW Coeff of Ad Neut # (Auto) Lymph # (Auto) Callaway # (Auto) Potassium BUN Creatinine BUN/Creatinine Ratio Glucose Calcium AST Globulin Urine Protein 2+ H Urine Blood 2+ H U Epithel Cells (Auto) 20-30 H Ethyl Alcohol mg/dL Diagnostic Findings No reports on admision Medications Administered Discontinued Medications Gabapentin (Gabapentin 600 Mg Tab) 1,200 mg PO NOW ONE Stop: 07/10/21 16:22 Last Admin: 07/10/21 16:31 Dose: 1,200 mg Documented by: [id number] Multivitamins 10 ml/ Thiamine HCl 100 mg/ Folic Acid 1 mg/Sodium Chloride 1,011.2 mls @ 1,011.2 mls/hr IV .Q1H ONE Stop: 07/10/21 17:15 Last Infusion: 07/10/21 18:56 Dose: 0 mls/hr Documented by: [id number] Admin: 07/10/21 17:43 Dose: 1,011.2 mls/hr Documented by: [id number] Lorazepam (Ativan) 2 mg in 4 mls @ 4 mls/min IV NOW STA Stop: 07/10/21 16:22 Last Admin: 07/10/21 16:31 Dose: 4 mls/min Documented by: [id number] Sodium Chloride (Nss 1000ml) 500 mls @ 999 mls/hr IV .Q31M ONE Stop: 07/10/21 17:13 Last Infusion: 07/10/21 17:54 Dose: 0 mls/hr Documented by: [id number] Admin: 07/10/21 17:06 Dose: 999 mls/hr Documented by: [id number] Lorazepam (Lorazepam 1 Mg Tab) 1 mg PO NOW STA Stop: 07/10/21 16:11 Last Admin: 07/10/21 16:52 Dose: Not Given Documented by: [id number] ECG Additional Comments: Normal sinus rhythm Nonspecific ST abnormality compared to previous ECG Code Status & VTE Plan Code Status CODE: FULL VTE: SCDs, apixaban, ambulation VTE Prophylaxis Plan VTE Prophylaxis will be ordered: Yes Supervising Physician Co-Signing Physician Notes 66 y/o M Hx HTN, HLD, CAD, AF, CKD III, COPD, active smoker, ETOH abuse and prior DTs. Presents stating that he would like to detox. He is not exhibiting active signs of withdrawal at the time of admission although he does have an ETOH level of > 250 and was provided with Ativan in the ER. Labs are notable for acute on chronic RF. OE: Pt is having a hard time staying awake at the time of my exam ENT: No erythema or exudates, no thrush Eyes: DEISY, EOMI Head and neck: Normocephalic, atraumatic, No JVD, neck is supple. Chest/heart: Nontender, S1,2, RRR, no murmurs, no gallops Lungs: CTAB, no wheezing or crackles Abdomen: Nontender, nondistended, BS+ Neuro: AAO x 3, speech is clear, no unilateral weakness or loss of sensation, coordination intact Musculoskeletal: No joint inflammation, muscle tenderness, FROM Skin: No acute rashes or ulcers Extremities: No clubbing, cyanosis, edema P: 1) ETOH abuse - expected withdrawal or DTs - placed on lorazepam and was given Gris in the ER. IVF w/glu, thiamine provided. 2) CAD - due to his history of CAD, we will place him on a beta juan manuel for expected withdrawal - no current evidence of ACS - cont statin 3) AF - he is not normally on rate control agents - as above, we have placed him on a beta juan manuel, will hold Apixiban for a few days owing to potential for severe DTs 4) COPD - inhalers PRN 5) HTN, HDL - normally on Norvasc - beta juan manuel provided - cont statin Full code - anticoagulated - add SCDs AM Total time for this admit including review of labs, meds, imaging, records - discussion with pt and ER attending - 50 min PG Care Time/CCT Total # of Minutes Spent Total Time Spent with Patient: Total time spent is greater than 50% in coordination of care (as documented) at patient's floor/unit and/or counseling patient: Coding Level of Care Code 33510 Initial Inpt Care Lvl 3 Diagnoses Alcohol withdrawal F10.230 Complication of substance-induced condition: uncomplicated Obstructive sleep apnea G47.33 CAD (coronary artery disease) I25.10 Cold sore B00.1 COPD, mild J44.9 Hypertension I10 Hyperlipidemia E78.5 Allergic dermatitis L23.9 Tremor R25.1 Afib I48.91 CKD (chronic kidney disease), stage III N18.3 (1) Alcohol withdrawal Complication of substance-induced condition: uncomplicated Qualified Code(s): F10.230 - Alcohol dependence with withdrawal, uncomplicated
[2021-07-10] MEDS ORDERED: NITROGLYCERIN SL 0.4 MG/TAB TAB SL PRN (22:21)
[2021-07-10] MEDS ORDERED: CETIRIZINE HCL 10 MG TABLET PO PRN (22:21)
[2021-07-10] MEDS ORDERED: LORazepam 3 MG/6 ML VIAL IV PRN (22:21)
[2021-07-10] MEDS ORDERED: POLYETHYLENE (MIRALAX) 17 GM PACK PO PRN (22:21)
[2021-07-10] MEDS ORDERED: ERYTHROMYCIN OP OINT 5 MG/GM 3.5 GM TUBE OP SCH (22:21)
[2021-07-10] MEDS ORDERED: ALBUTEROL HFA 8 GM INHALER INH PRN (22:21)
[2021-07-10] MEDS ORDERED: ATIVAN IV ALCOHOL WITHDRAWL IV PRN (22:21)
[2021-07-10] MEDS ORDERED: GABAPENTIN 600 MG TAB PO SCH (22:30)
[2021-07-10] MEDS ORDERED: LACTATED RINGER'S 1,000 ML IV ONE (22:45)
[2021-07-10] MEDS: FLUTICASONE PROPIONATE NA SPR 16 GM BTL SCH (23:30)
[2021-07-10] MEDS: NICOTINE 14 MG/24 HR PATCH TD SCH (23:30)
[2021-07-10] MEDS: ACYCLOVIR 5% OINT 15 GM TUBE EXT SCH (23:31)
[2021-07-10] MEDS: APIXABAN 5 MG TABLET PO SCH (23:31)
[2021-07-10] MEDS: MONTELUKAST SODIUM 10 MG TABLET PO SCH (23:32)
[2021-07-10] MEDS: ROSUVASTATIN CALCIUM 20 MG TAB PO SCH (23:32)
[2021-07-10] MEDS: GABAPENTIN 100 MG CAP PO SCH (23:33)
[2021-07-11] MEDS: LORazepam 1 MG/2 ML VIAL IV PRN ×4 (03:03→22:36)
[2021-07-11] MEDS: GABAPENTIN 100 MG CAP PO SCH (05:27)
[2021-07-11] MEDS: ACYCLOVIR 5% OINT 15 GM TUBE EXT SCH ×5 (06:19→22:36)
[2021-07-11 07:25] LABS: Basophils # (auto) 0.03 K/uL (0-0.2); Basophils % (auto) 0.4 %; Eosinophils # (auto) 0.11 K/uL (0-0.5); Eosinophils % (auto) 1.5 %; Hematocrit (blood only) 32.3 % (42-52); Hemoglobin 10.8 g/dL (14.0-18.0); Immature Granulocytes # (auto) 0.02 K/uL (0.00-0.02); Immature Granulocytes % (auto) 0.3 %; Lymphocytes # (auto) 0.93 K/uL (1.2-3.4); Lymphocytes % (auto) 12.7 %; Mean Corpuscular Hemoglobin 30.1 pg (25-34); Mean Corpuscular Hgb Conc 33.4 g/dL (32-36); Mean Platelet Volume 9.1 fL (7.4-10.4); Monocytes # (auto) 0.85 K/uL (0.11-0.59); Monocytes % (auto) 11.6 %; Neutrophils # (auto) 5.41 K/uL (1.4-6.5); Neutrophils % (auto) 73.5 %; Platelet Count 131 K/uL (130-400); RDW Coefficient of Variation 18.6 % (11.5-14.5); RDW Standard Deviation 61.2 fL (36.4-46.3); Red Blood Count 3.59 M/uL (4.7-6.1); White Blood Count 7.35 K/uL (4.8-10.8)
[2021-07-11] MEDS: amLODIPine BESYLATE 5 MG TAB PO SCH (08:12)
[2021-07-11] MEDS: AZITHROMYCIN 250 MG TAB PO SCH (08:13)
[2021-07-11] MEDS: ASPIRIN 81 MG ECTAB PO SCH (08:13)
[2021-07-11] MEDS: APIXABAN 5 MG TABLET PO SCH ×2 (08:13→20:15)
[2021-07-11] MEDS: FAMOTIDINE 40 MG TABLET PO SCH (08:14)
[2021-07-11] MEDS: FLUTICASONE FUROATE 100MCG 14 PUFFS/INHALER INH SCH (08:15)
[2021-07-11] MEDS: FLUTICASONE PROPIONATE NA SPR 16 GM BTL SCH ×2 (08:15→20:16)
[2021-07-11] MEDS: FOLIC ACID 1 MG TAB PO SCH (08:16)
[2021-07-11] MEDS: PANTOprazole 40 MG TAB PO SCH (08:16)
[2021-07-11] MEDS: THIAMINE HCL 100 MG TAB PO SCH (08:17)
[2021-07-11] MEDS: UMECLIDINIUM/VILANTEROL 62.5/25MCG 7 PUFFS/INHALER INH SCH (08:17)
[2021-07-11] MEDS: predniSONE 5 MG TAB PO SCH (08:17)
[2021-07-11 08:19] LABS: BUN Creatinine Ratio 9.5 (10-20); Calcium 9.4 mg/dl (8.5-10.1); Creatinine Clr Calc Pharmacy 38.2 ml/min; Est GFR (African American) 38.9 ml/min; Est GFR (Non-African American) 33.6 ml/min; Magnesium 1.6 mg/dl (1.8-2.4)
[2021-07-11] MEDS: NICOTINE 14 MG/24 HR PATCH TD SCH (08:32)
[2021-07-11] MEDS ORDERED: GABAPENTIN 600 MG TAB PO SCH ×2 (12:30→16:00)
--- NOTE | 2021-07-11 17:33 | Electrocardiogram Report ---
Test Reason : Blood Pressure : / mmHG Vent. Rate : 074 BPM Atrial Rate : 074 BPM P-R Int : 156 ms QRS Dur : 090 ms QT Int : 364 ms P-R-T Axes : 056 061 073 degrees QTc Int : 404 ms Normal sinus rhythm Nonspecific ST abnormality Abnormal ECG No previous ECGs available Confirmed by Tavo Garcia ([id number]) on 07/11/2021 5:32:54 PM Referred By: ER Confirmed By:Tavo Garcia
[2021-07-11] MEDS: ROSUVASTATIN CALCIUM 20 MG TAB PO SCH (20:16)
[2021-07-11] MEDS: MONTELUKAST SODIUM 10 MG TABLET PO SCH (20:16)
--- NOTE | 2021-07-11 23:14 | Hospitalist Progress Note ---
Date of Service July 11, 2021 Assessment & Plan (1) Alcohol withdrawal: Plan: Admitted as he endorses he wants to stop drinking - reports 42 years of drinking with 2-3 attempts at stopping - Continue gabapentin and Ativan coverage - He has been on thiamine and folate as prescribed for his discharge from [place] - he was also prescribed Librium as outpatient there as well- could add this on if he needs - With his cardiac disease and if symptoms increase - consider adding on titratable BB for cardiac risk reduction - Banana bag administered in EMD will continue above treatment. Withdrawal symptoms appears to be controlled. - (2) Afib: Plan: diagnosed in 2019 and converted in house on sotalol- remains in NSR - He is on Apixaban for his history of PE - No rate controlling agents at this time (3) CAD (coronary artery disease): Plan: As above per HPI - Continue amlodipine for his HTN - Continue rosuvastatin 40 daily - likely not on an AMANDA secondary to his renal function - Consider adding low dose BB in place of his amlodipine if he gets HTN/Tachycardic with his withdraw - add back daily asa- recently stopped as patient stopped taking this (4) Hypertension: Plan: As above (5) CKD (chronic kidney disease), stage III: Plan: As above his baseline LAUNDRY TECH is 1.3-1.5- likely related to his nausea and vomiting with decrease oral intake - Bun is stable - follow renal indices - avoid nephrotoxic medications and if needed, limit exposure time. (6) COPD, mild: Plan: Continue albuterol prn - continue equivalent or his Trelegy daily - Continue his AZT MWF- can likely wean down- started on 13august (7) Obstructive sleep apnea: Plan: Non complaint- follow while in house (8) Cold sore: Plan: Continue his acyclovir as needed (9) Hyperlipidemia: Plan: Continue rosuvastatin 40 mg daily (10) Allergic dermatitis: Plan: Continue prednisone 5mg daily (11) Tremor: Plan: Chronic with his alcohol may confound his AWWS follow total symptomatology. Admission and Anticipated Discharge Date Admission Date: July 10, 2021 Subjective Patient reports no new symptoms. Review of Systems Review of Systems: All systems reviewed & are unremarkable except as noted in HPI & below Physical Exam Physical Exam: General: awake, no apparent distress Head: Normocephalic, atraumatic ENT: PERRL, EOMI, no pharyngeal exudate, mucous membranes moist Neuro: AAO x 3, speech clear Chest: equal rise and fall of the chest, no accessory muscle use, no heaves or thrills, scattered rhonchi and mild expiratory wheeze, on room air, Cardiac: Regular rate and rhythm GI: NABS x 4 quadrants, soft, nontender to palpation, no rebound, guarding or tenderness : Spontaneously voiding, no pain, no CVA tenderness, Extremities: Normal inspection, no peripheral edema or erythema, calfs nontender to palpation Psych: Normal mood and affect Skin: scab on chin Results & Data Results & Data ([facility]) Vital Signs (Past 12 Hours) Vital Signs Temp Pulse Pulse Resp BP Pulse Ox 07/11/21 22:33 36.6 C 74 20 155/4 H 94 07/11/21 19:39 37 C 80 18 151/77 H 94 07/11/21 16:45 92 H 07/11/21 16:10 36.9 C 89 20 128/78 92 07/11/21 11:27 36.9 C 81 16 149/74 H 97 PG Care Time/CCT Total # of Minutes Spent Total Time Spent with Patient: Total time spent is greater than 50% in coordination of care (as documented) at patient's floor/unit and/or counseling patient: Coding Level of Care Code 48132 Subseq Hosp Care Lvl 2 Diagnoses Alcohol withdrawal F10.230 Complication of substance-induced condition: uncomplicated Afib I48.91 CAD (coronary artery disease) I25.10 Hypertension I10 CKD (chronic kidney disease), stage III N18.3 COPD, mild J44.9 Obstructive sleep apnea G47.33 Cold sore B00.1 Hyperlipidemia E78.5 Allergic dermatitis L23.9 Tremor R25.1 Time Spent (min) 25 (1) Alcohol withdrawal Complication of substance-induced condition: uncomplicated Qualified Code(s): F10.230 - Alcohol dependence with withdrawal, uncomplicated
[2021-07-12] MEDS: LORazepam 2 MG/4 ML VIAL IV PRN (00:35)
[2021-07-12 07:55] LABS: Basophils # (auto) 0.02 K/uL (0-0.2); Basophils % (auto) 0.3 %; Eosinophils # (auto) 0.16 K/uL (0-0.5); Eosinophils % (auto) 2.2 %; Hematocrit (blood only) 32.6 % (42-52); Hemoglobin 10.8 g/dL (14.0-18.0); Immature Granulocytes # (auto) 0.02 K/uL (0.00-0.02); Immature Granulocytes % (auto) 0.3 %; Lymphocytes % (auto) 12.1 %; Mean Corpuscular Hemoglobin 29.8 pg (25-34); Mean Corpuscular Hgb Conc 33.1 g/dL (32-36); Mean Corpuscular Volume 90.1 fL (80-100); Mean Platelet Volume 9.3 fL (7.4-10.4); Monocytes # (auto) 0.81 K/uL (0.11-0.59); Monocytes % (auto) 10.9 %; Neutrophils # (auto) 5.53 K/uL (1.4-6.5); Neutrophils % (auto) 74.2 %; Platelet Count 131 K/uL (130-400); RDW Coefficient of Variation 18.1 % (11.5-14.5); RDW Standard Deviation 60.1 fL (36.4-46.3); Red Blood Count 3.62 M/uL (4.7-6.1); White Blood Count 7.44 K/uL (4.8-10.8)
[2021-07-12 08:10] LABS: BUN Creatinine Ratio 10.1 (10-20); Calcium 8.3 mg/dl (8.5-10.1); Est GFR (African American) 43.9 ml/min; Est GFR (Non-African American) 37.9 ml/min; Magnesium 1.4 mg/dl (1.8-2.4); Potassium 2.6 mmol/L (3.5-5.1)
[2021-07-12] MEDS: THIAMINE HCL 100 MG TAB PO SCH (08:55)
[2021-07-12] MEDS: FAMOTIDINE 40 MG TABLET PO SCH (08:55)
[2021-07-12] MEDS: ASPIRIN 81 MG ECTAB PO SCH (08:55)
[2021-07-12] MEDS: FOLIC ACID 1 MG TAB PO SCH (08:55)
[2021-07-12] MEDS: amLODIPine BESYLATE 5 MG TAB PO SCH (08:56)
[2021-07-12] MEDS: UMECLIDINIUM/VILANTEROL 62.5/25MCG 7 PUFFS/INHALER INH SCH (08:56)
[2021-07-12] MEDS: APIXABAN 5 MG TABLET PO SCH ×2 (08:56→20:19)
[2021-07-12] MEDS: FLUTICASONE PROPIONATE NA SPR 16 GM BTL SCH ×2 (08:56→20:19)
[2021-07-12] MEDS: ACYCLOVIR 5% OINT 15 GM TUBE EXT SCH ×5 (09:04→21:21)
[2021-07-12] MEDS: predniSONE 5 MG TAB PO SCH (09:47)
[2021-07-12] MEDS: NICOTINE 14 MG/24 HR PATCH TD SCH (09:47)
[2021-07-12] MEDS: PANTOprazole 40 MG TAB PO SCH (09:47)
[2021-07-12] MEDS: FLUTICASONE FUROATE 100MCG 14 PUFFS/INHALER INH SCH (09:48)
[2021-07-12] MEDS: ACETAMINOPHEN 325 MG TAB PO PRN ×2 (09:53→21:20)
[2021-07-12] MEDS: LORazepam 1 MG/2 ML VIAL IV PRN ×3 (10:16→21:20)
[2021-07-12] MEDS: POTASSIUM CHLORIDE / WTR 10 MEQ/100 ML PLCT IV SCH ×4 (12:44→17:44)
[2021-07-12] MEDS: POTASSIUM CHLORIDE CRTAB 20 MEQ TABCR PO SCH ×2 (15:37→20:19)
[2021-07-12] MEDS ORDERED: GABAPENTIN 400 MG CAP PO SCH (16:00)
[2021-07-12] MEDS ORDERED: GABAPENTIN 600 MG TAB PO SCH (16:30)
[2021-07-12] MEDS: MONTELUKAST SODIUM 10 MG TABLET PO SCH (20:19)
[2021-07-12] MEDS: ROSUVASTATIN CALCIUM 20 MG TAB PO SCH (20:19)
--- NOTE | 2021-07-12 21:37 | Hospitalist Progress Note ---
Date of Service July 12, 2021 Assessment & Plan (1) Alcohol withdrawal: Plan: Admitted as he endorses he wants to stop drinking - reports 42 years of drinking with 2-3 attempts at stopping - Continue gabapentin and Ativan coverage - He has been on thiamine and folate as prescribed for his discharge from [place] - he was also prescribed Librium as outpatient there as well- could add this on if he needs - With his cardiac disease and if symptoms increase - consider adding on titratable BB for cardiac risk reduction - Banana bag administered in EMD will continue above treatment. Tapering gabapentin Withdrawal symptoms appears to be controlled. - (2) Afib: Plan: diagnosed in 2019 and converted in house on sotalol- remains in NSR - He is on Apixaban for his history of PE - No rate controlling agents at this time (3) CAD (coronary artery disease): Plan: As above per HPI - Continue amlodipine for his HTN - Continue rosuvastatin 40 daily - likely not on an AMANDA secondary to his renal function - Consider adding low dose BB in place of his amlodipine if he gets HTN/Tachycardic with his withdraw - add back daily asa- recently stopped as patient stopped taking this (4) Hypertension: Plan: As above (5) CKD (chronic kidney disease), stage III: Plan: As above his baseline [employer] is 1.3-1.5- likely related to his nausea and vomiting with decrease oral intake - Bun is stable - follow renal indices - avoid nephrotoxic medications and if needed, limit exposure time. (6) COPD, mild: Plan: Continue albuterol prn - continue equivalent or his Trelegy daily - Continue his AZT MWF- can likely wean down- started on 13august (7) Obstructive sleep apnea: Plan: Non complaint- follow while in house (8) Cold sore: Plan: Continue his acyclovir as needed (9) Hyperlipidemia: Plan: Continue rosuvastatin 40 mg daily (10) Allergic dermatitis: Plan: Continue prednisone 5mg daily (11) Tremor: Plan: Chronic with his alcohol may confound his AWWS follow total symptomatology. Admission and Anticipated Discharge Date Admission Date: July 10, 2021 Subjective 66 yo male reports feeling fatigued. Review of Systems Review of Systems: All systems reviewed & are unremarkable except as noted in HPI & below Physical Exam Physical Exam: General: awake, no apparent distress Head: Normocephalic, atraumatic ENT: PERRL, EOMI, no pharyngeal exudate, mucous membranes moist Neuro: AAO x 3, speech clear Chest: equal rise and fall of the chest, no accessory muscle use, no heaves or thrills, scattered rhonchi and mild expiratory wheeze, on room air, Cardiac: Regular rate and rhythm GI: NABS x 4 quadrants, soft, nontender to palpation, no rebound, guarding or tenderness : Spontaneously voiding, no pain, no CVA tenderness, Extremities: Normal inspection, no peripheral edema or erythema, calfs nontender to palpation Psych: Normal mood and affect Skin: scab on chin Results & Data Results & Data ([facility]) Vital Signs (Past 12 Hours) Vital Signs Temp Pulse Pulse Pulse Resp BP BP 07/12/21 21:19 36.7 C 84 20 149/84 H 07/12/21 18:39 37 C 85 18 133/85 07/12/21 16:00 79 07/12/21 15:11 36.6 C 80 20 142/79 H 07/12/21 11:36 36.7 C 88 20 127/75 07/12/21 10:11 36.7 C 95 H 18 149/91 H Pulse Ox 07/12/21 21:19 94 07/12/21 18:39 94 07/12/21 16:00 07/12/21 15:11 93 07/12/21 11:36 95 07/12/21 10:11 92 PG Care Time/CCT Total # of Minutes Spent Total Time Spent with Patient: Total time spent is greater than 50% in coordination of care (as documented) at patient's floor/unit and/or counseling patient: Coding Level of Care Code 07436 Subseq Hosp Care Lvl 2 Diagnoses Alcohol withdrawal F10.230 Complication of substance-induced condition: uncomplicated Afib I48.91 CAD (coronary artery disease) I25.10 Hypertension I10 CKD (chronic kidney disease), stage III N18.3 COPD, mild J44.9 Obstructive sleep apnea G47.33 Cold sore B00.1 Hyperlipidemia E78.5 Allergic dermatitis L23.9 Tremor R25.1 Time Spent (min) 25 (1) Alcohol withdrawal Complication of substance-induced condition: uncomplicated Qualified Code(s): F10.230 - Alcohol dependence with withdrawal, uncomplicated
[2021-07-13] MEDS: LORazepam 1 MG/2 ML VIAL IV PRN ×5 (02:07→22:37)
[2021-07-13] MEDS: ACYCLOVIR 5% OINT 15 GM TUBE EXT SCH ×5 (05:49→21:03)
[2021-07-13 07:49] LABS: Basophils # (auto) 0.02 K/uL (0-0.2); Basophils % (auto) 0.3 %; Eosinophils # (auto) 0.22 K/uL (0-0.5); Hemoglobin 11.2 g/dL (14.0-18.0); Immature Granulocytes # (auto) 0.04 K/uL (0.00-0.02); Immature Granulocytes % (auto) 0.5 %; Lymphocytes # (auto) 0.96 K/uL (1.2-3.4); Lymphocytes % (auto) 12.9 %; Mean Corpuscular Hemoglobin 30.3 pg (25-34); Mean Corpuscular Hgb Conc 32.9 g/dL (32-36); Mean Corpuscular Volume 91.9 fL (80-100); Mean Platelet Volume 9.7 fL (7.4-10.4); Monocytes # (auto) 0.66 K/uL (0.11-0.59); Monocytes % (auto) 8.9 %; Neutrophils # (auto) 5.53 K/uL (1.4-6.5); Neutrophils % (auto) 74.4 %; Platelet Count 144 K/uL (130-400); RDW Coefficient of Variation 17.9 % (11.5-14.5); White Blood Count 7.43 K/uL (4.8-10.8)
[2021-07-13] MEDS: APIXABAN 5 MG TABLET PO SCH ×2 (08:19→21:00)
[2021-07-13] MEDS: amLODIPine BESYLATE 5 MG TAB PO SCH (08:20)
[2021-07-13] MEDS: FOLIC ACID 1 MG TAB PO SCH (08:20)
[2021-07-13] MEDS: FAMOTIDINE 40 MG TABLET PO SCH (08:20)
[2021-07-13] MEDS: ASPIRIN 81 MG ECTAB PO SCH (08:20)
[2021-07-13] MEDS: predniSONE 5 MG TAB PO SCH (08:20)
[2021-07-13] MEDS: PANTOprazole 40 MG TAB PO SCH (08:20)
[2021-07-13] MEDS: THIAMINE HCL 100 MG TAB PO SCH (08:20)
[2021-07-13] MEDS: POTASSIUM CHLORIDE CRTAB 20 MEQ TABCR PO SCH ×3 (08:21→21:00)
[2021-07-13] MEDS: FLUTICASONE PROPIONATE NA SPR 16 GM BTL SCH ×2 (08:21→21:02)
[2021-07-13] MEDS: UMECLIDINIUM/VILANTEROL 62.5/25MCG 7 PUFFS/INHALER INH SCH (08:21)
[2021-07-13] MEDS: FLUTICASONE FUROATE 100MCG 14 PUFFS/INHALER INH SCH (08:21)
[2021-07-13 08:26] LABS: Albumin Level 2.6 gm/dl (3.4-5.0); BUN Creatinine Ratio 8.5 (10-20); Bilirubin Direct 0.2 mg/dl (0-0.2); Calcium 8.6 mg/dl (8.5-10.1); Creatinine Clr Calc Pharmacy 44.5 ml/min; Est GFR (African American) 46.3 ml/min; Magnesium 1.5 mg/dl (1.8-2.4); Potassium 3.5 mmol/L (3.5-5.1)
[2021-07-13 08:41] LABS: Bilirubin,Total 0.5 mg/dl (0.2-1); Phosphorus 1.4 mg/dl (2.5-4.9); Total Protein 5.9 gm/dl (6.4-8.2)
[2021-07-13] MEDS ORDERED: POTASSIUM PHOS 3 MMOL/1 ML INFUSION IV STA (08:42)
[2021-07-13] MEDS ORDERED: POTASSIUM PHOSPHATE 21 MMOL in SODIUM CHLORIDE 0.9% 500 ML IV ONE (09:15)
[2021-07-13] MEDS: NICOTINE 14 MG/24 HR PATCH TD SCH (09:56)
[2021-07-13] MEDS: MAGNESIUM SULFATE / D5W 1 GM/100 ML BAG IV SCH ×2 (10:39→13:05)
[2021-07-13] MEDS ORDERED: GABAPENTIN 100 MG CAP PO SCH (16:00)
[2021-07-13] MEDS: MONTELUKAST SODIUM 10 MG TABLET PO SCH (21:00)
--- NOTE | 2021-07-13 21:00 | Hospitalist Progress Note ---
Date of Service July 13, 2021 Assessment & Plan (1) Alcohol withdrawal: Plan: Admitted as he endorses he wants to stop drinking - reports 42 years of drinking with 2-3 attempts at stopping - Continue gabapentin and Ativan coverage - He has been on thiamine and folate as prescribed for his discharge from [place] - he was also prescribed Librium as outpatient there as well- could add this on if he needs - With his cardiac disease and if symptoms increase - consider adding on titratable BB for cardiac risk reduction - Banana bag administered in EMD will continue above treatment. Patient appears more drowsy. Tapering gabapentin, will try to limit benzos as symptoms are controlled. . - (2) Afib: Plan: diagnosed in 2019 and converted in house on sotalol- remains in NSR - He is on Apixaban for his history of PE - No rate controlling agents at this time (3) CAD (coronary artery disease): Plan: As above per HPI - Continue amlodipine for his HTN - Continue rosuvastatin 40 daily - likely not on an AMANDA secondary to his renal function - Consider adding low dose BB in place of his amlodipine if he gets HTN/Tachycardic with his withdraw - add back daily asa- recently stopped as patient stopped taking this (4) Hypertension: Plan: As above (5) CKD (chronic kidney disease), stage III: Plan: As above his baseline [employer] is 1.3-1.5- likely related to his nausea and vomiting with decr ease oral intake - Bun is stable - follow renal indices - avoid nephrotoxic medications and if needed, limit exposure time. (6) COPD, mild: Plan: Continue albuterol prn - continue equivalent or his Trelegy daily - Continue his AZT MWF- can likely wean down- started on 13august (7) Obstructive sleep apnea: Plan: Non complaint- follow while in house (8) Cold sore: Plan: Continue his acyclovir as needed (9) Hyperlipidemia: Plan: Continue rosuvastatin 40 mg daily (10) Allergic dermatitis: Plan: Continue prednisone 5mg daily (11) Tremor: Plan: Chronic with his alcohol may confound his AWWS follow total symptomatology. (12) Acute renal failure: Plan: responding to IVF. will continue to monitor. Admission and Anticipated Discharge Date Admission Date: July 10, 2021 Subjective Patient reports no new symptoms. Review of Systems Review of Systems: All systems reviewed & are unremarkable except as noted in HPI & below Physical Exam Physical Exam: General: awake, no apparent distress Head: Normocephalic, atraumatic ENT: PERRL, EOMI, no pharyngeal exudate, mucous membranes moist Chest: CTA BL on room air, Cardiac: Regular rate and rhythm GI: NABS x 4 quadrants, soft, nontender to palpation, no rebound, guarding or tenderness : Spontaneously voiding, no pain, no CVA tenderness, Extremities: Normal inspection, no peripheral edema or erythema, calfs nontender to palpation Skin: scab on chin Results & Data Results & Data ([facility]) Vital Signs (Past 12 Hours) Vital Signs Temp Pulse Pulse Resp BP BP Pulse Ox 07/13/21 18:20 37.3 C 88 18 121/75 93 07/13/21 15:38 36.8 C 91 H 20 123/75 93 07/13/21 15:00 94 H 07/13/21 13:00 36.9 C 98 H 18 116/71 91 PG Care Time/CCT Total # of Minutes Spent Total Time Spent with Patient: Total time spent is greater than 50% in coordination of care (as documented) at patient's floor/unit and/or counseling patient: Coding Level of Care Code 37098 Subseq Hosp Care Lvl 2 Diagnoses Alcohol withdrawal F10.230 Complication of substance-induced condition: uncomplicated Afib I48.91 CAD (coronary artery disease) I25.10 Hypertension I10 CKD (chronic kidney disease), stage III N18.3 COPD, mild J44.9 Obstructive sleep apnea G47.33 Cold sore B00.1 Hyperlipidemia E78.5 Allergic dermatitis L23.9 Tremor R25.1 Acute renal failure N17.9 Time Spent (min) 25 (1) Alcohol withdrawal Complication of substance-induced condition: uncomplicated Qualified Code(s): F10.230 - Alcohol dependence with withdrawal, uncomplicated
[2021-07-13] MEDS: ROSUVASTATIN CALCIUM 20 MG TAB PO SCH (21:01)
[2021-07-14] MEDS ORDERED: GABAPENTIN 600 MG TAB PO SCH (04:30)
[2021-07-14 07:32] LABS: Hematocrit (blood only) 33.3 % (42-52); Hemoglobin 11.1 g/dL (14.0-18.0); Mean Corpuscular Hemoglobin 30.6 pg (25-34); Mean Corpuscular Hgb Conc 33.3 g/dL (32-36); Mean Corpuscular Volume 91.7 fL (80-100); Mean Platelet Volume 10.2 fL (7.4-10.4); Platelet Count 152 K/uL (130-400); RDW Coefficient of Variation 18.1 % (11.5-14.5); Red Blood Count 3.63 M/uL (4.7-6.1); White Blood Count 8.59 K/uL (4.8-10.8)
[2021-07-14] MEDS: PANTOprazole 40 MG TAB PO SCH (07:55)
[2021-07-14] MEDS: FOLIC ACID 1 MG TAB PO SCH (07:55)
[2021-07-14] MEDS: AZITHROMYCIN 250 MG TAB PO SCH (07:55)
[2021-07-14] MEDS: THIAMINE HCL 100 MG TAB PO SCH (07:55)
[2021-07-14] MEDS: predniSONE 5 MG TAB PO SCH (07:55)
[2021-07-14] MEDS: POTASSIUM CHLORIDE CRTAB 20 MEQ TABCR PO SCH (07:56)
[2021-07-14] MEDS: ASPIRIN 81 MG ECTAB PO SCH (07:56)
[2021-07-14] MEDS: APIXABAN 5 MG TABLET PO SCH ×2 (07:56→20:20)
[2021-07-14] MEDS: FAMOTIDINE 40 MG TABLET PO SCH (07:56)
[2021-07-14] MEDS: ACYCLOVIR 5% OINT 15 GM TUBE EXT SCH ×5 (07:57→23:39)
[2021-07-14] MEDS: amLODIPine BESYLATE 5 MG TAB PO SCH (07:57)
[2021-07-14] MEDS: UMECLIDINIUM/VILANTEROL 62.5/25MCG 7 PUFFS/INHALER INH SCH (07:58)
[2021-07-14] MEDS: FLUTICASONE FUROATE 100MCG 14 PUFFS/INHALER INH SCH (07:58)
[2021-07-14] MEDS: FLUTICASONE PROPIONATE NA SPR 16 GM BTL SCH ×2 (07:59→20:21)
[2021-07-14] MEDS: NICOTINE 14 MG/24 HR PATCH TD SCH ×2 (08:01→08:18)
[2021-07-14 08:06] LABS: BUN Creatinine Ratio 8.1 (10-20); Calcium 8.4 mg/dl (8.5-10.1); Creatinine Clr Calc Pharmacy 49.9 ml/min; Est GFR (African American) 53.3 ml/min; Magnesium 1.9 mg/dl (1.8-2.4); Potassium 3.4 mmol/L (3.5-5.1)
[2021-07-14 08:25] LABS: Phosphorus 1.5 mg/dl (2.5-4.9)
--- NOTE | 2021-07-14 08:39 | Hospitalist Progress Note ---
Date of Service July 14, 2021 Assessment & Plan (1) Ambulatory dysfunction: Plan: Unclear acute vs. chronic Given neck pain and possible trauma will get MRI cervical spine B1, B12 and folate levels Start IV thiamine for possible Wernicke's treatment following level taken. PT/OT (2) Alcohol withdrawal: Plan: Admitted as he endorses he wants to stop drinking - reports 42 years of drinking with 2-3 attempts at stopping - Gabapentin taper finished. AWSS 4-7 [07/13] with Lorazepam total 5mg IV given last 24 hours - Continue PRN lorazepam 1-3mg IV per AWSS (3) Afib: Plan: diagnosed in 2019 and converted in house on sotalol- remains in NSR - He is on Apixaban for his history of PE - No rate controlling agents at this time (4) CAD (coronary artery disease): Plan: As above per HPI - Continue amlodipine for his HTN - Continue rosuvastatin 40 daily - likely not on an AMANDA secondary to his renal function - Consider adding low dose BB in place of his amlodipine if he gets HTN/Tachycardic with his withdraw - add back daily asa- recently stopped as patient stopped taking this (5) Hypertension: Plan: As above (6) CKD (chronic kidney disease), stage III: Plan: At baseline (7) COPD, mild: Plan: Continue albuterol prn - continue equivalent or his Trelegy daily - Continue his AZT MWF- can likely wean down- started on 27 June (8) Obstructive sleep apnea: Plan: Non complaint- follow while in house (9) Cold sore: Plan: Continue his acyclovir as needed (10) Hyperlipidemia: Plan: Continue rosuvastatin 40 mg daily (11) Allergic dermatitis: Plan: Continue prednisone 5mg daily (12) Tremor: Plan: Chronic with his alcohol May confound his AWWS follow total symptomatology. (13) Acute renal failure: Plan: Resolved. Responding to IVF. Will continue to monitor. Admission and Anticipated Discharge Date Admission Date: July 10, 2021 Subjective No significant agitation or tremors. Reports significant balance issues and weakness in all 4 extremities. Unable to give a me a good history of his symptoms but also reports neck and back pain. No radicular pains. Diplopia present only since he has come into hospital. Review of Systems Review of Systems: All systems reviewed & are unremarkable except as noted in HPI & below Physical Exam Constitutional: WD/WN, vitals as above Eyes: + anicteric sclerae and EOM intact bilaterally (reports diplopia with all eye movements); normal pupil size and no nystagmus Respiratory: normal respiratory effort, lungs clear to auscultation Cardiovascular: Rate/Rhythm: regular rate and regular rhythm Heart Sounds: no murmur Gastrointestinal (Abdomen): Percussion/Palpation: abdomen soft; abdomen nontender Psychiatric: A+Ox3, euthymic affect Results & Data Results & Data ([facility]) Vital Signs (Past 12 Hours) Vital Signs Temp Pulse Pulse Resp BP BP Pulse Ox 07/14/21 07:51 37.4 C 100 H 20 128/81 91 07/14/21 03:15 37 C 95 H 20 135/82 91 07/14/21 00:00 112 H 07/13/21 23:23 37.1 C 71 16 123/77 94 07/13/21 22:00 Pulse Ox 07/14/21 07:51 07/14/21 03:15 07/14/21 00:00 07/13/21 23:23 07/13/21 22:00 93 PG Care Time/CCT Total # of Minutes Spent Total Time Spent with Patient: Total time spent is greater than 50% in coordination of care (as documented) at patient's floor/unit and/or counseling patient: Coding Level of Care Code 85086 Subseq Hosp Care Lvl 2 Diagnoses Alcohol withdrawal F10.230 Complication of substance-induced condition: uncomplicated Afib I48.91 CAD (coronary artery disease) I25.10 Hypertension I10 CKD (chronic kidney disease), stage III N18.3 COPD, mild J44.9 Obstructive sleep apnea G47.33 Cold sore B00.1 Hyperlipidemia E78.5 Allergic dermatitis L23.9 Tremor R25.1 Acute renal failure N17.9 Ambulatory dysfunction R26.2 (1) Alcohol withdrawal Complication of substance-induced condition: uncomplicated Qualified Code(s): F10.230 - Alcohol dependence with withdrawal, uncomplicated
[2021-07-14] MEDS: POT PHOSPHATE MONOBASIC W/ SOD TAB PO SCH ×4 (10:13→20:20)
[2021-07-14] MEDS: LORazepam 1 MG/2 ML VIAL IV PRN ×2 (14:39→19:55)
[2021-07-14 14:52] LABS: Folate (Folic Acid) > 20.00 ng/ml (>5.38); Vitamin B12 589 pg/ml (193-986)
--- NOTE | 2021-07-14 16:08 | XRay Report ---
BONY ORBITS 3 VIEWS CLINICAL HISTORY: MRI clearance. FINDINGS: 3 views of the bony orbits are obtained. No prior studies are available for comparison at t he time of dictation. There is no radiodense/metallic foreign body seen in the region of the bony orb its. The bony orbits are intact as imaged. The visualized paranasal sinuses and the mastoid air cells appear clear. The imaged calvarium appears intact. IMPRESSION: There is no radiodense/metallic foreign body seen in the region of the bony orbits. ACT 112: Negative or not required by law. Electronically signed by: Feliciano Chawla M.D. 07/14/2021 4:06 PM
--- NOTE | 2021-07-14 17:23 | Magnetic Resonance Report ---
CERVICAL SPINE MRI HISTORY: neck pain, bilateral extremity weakness, ?stenosis TECHNIQUE: Multiplanar multisequence MRI of the cervical spine was performed without the use of contr ast. COMPARISON STUDY: None. FINDINGS: There are partially visualized bilateral mastoid effusions. There is mild motion artifact. Straightening of the upper cervical spine. No fracture or subluxation. Prevertebral soft tissues and the C1-C2 interval are intact. The visualized posterior fossa is unremarkable. The cervical spinal co rd is normal and course, caliber, and signal intensity. Mild disc space narrowing at C4-C5 and C5-C6. No epidural fluid collections. C2-C3: No significant central canal or neural foraminal narrowing. C3-C4: No significant central canal narrowing. Bilateral uncovertebral facet hypertrophy resulting in moderate bilateral neural foraminal narrowing. C4-C5: Small broad-based posterior disc osteophyte complex without significant central canal narrowin g. There appears to be severe right and moderate left neural foraminal narrowing due to the uncoverte bral hypertrophy. C5-C6: Small broad-based posterior disc osteophyte complex without significant central canal narrowin g. There is moderate bilateral neural foraminal narrowing. C6-C7: No significant central canal or neural foraminal narrowing. C7-T1: No significant central canal or neural foraminal narrowing. IMPRESSION: 1. No fracture or subluxation within the cervical spine. 2. Mild disc space narrowing at C4-C5 and C5-C6. 3. Suboptimal evaluation due to the motion artifact. However, there are no disc herniations. No signi ficant central canal narrowing. 4. Bilateral neural foraminal narrowing as described above. ACT 112: Negative or not required by law. Electronically signed by: Andrea Bustamante M.D. 07/14/2021 5:22 PM
[2021-07-14] MEDS: THIAMINE HCL 500 MG in 0.9 % SODIUM CHLORIDE 100 ML IV SCH (20:19)
[2021-07-14] MEDS: MONTELUKAST SODIUM 10 MG TABLET PO SCH (20:20)
[2021-07-14] MEDS: ROSUVASTATIN CALCIUM 20 MG TAB PO SCH (20:21)
[2021-07-14] MEDS: LORazepam 2 MG/4 ML VIAL IV PRN (20:40)
[2021-07-15] MEDS: LORazepam 1 MG/2 ML VIAL IV PRN ×4 (02:09→21:43)
[2021-07-15] MEDS: amLODIPine BESYLATE 5 MG TAB PO SCH (08:28)
[2021-07-15] MEDS: ACYCLOVIR 5% OINT 15 GM TUBE EXT SCH ×5 (08:28→21:58)
[2021-07-15] MEDS: FLUTICASONE FUROATE 100MCG 14 PUFFS/INHALER INH SCH (08:29)
[2021-07-15] MEDS: POT PHOSPHATE MONOBASIC W/ SOD TAB PO SCH ×4 (08:29→21:35)
[2021-07-15] MEDS: FLUTICASONE PROPIONATE NA SPR 16 GM BTL SCH ×2 (08:29→21:33)
[2021-07-15] MEDS: ASPIRIN 81 MG ECTAB PO SCH (08:29)
[2021-07-15] MEDS: APIXABAN 5 MG TABLET PO SCH ×2 (08:29→21:34)
[2021-07-15] MEDS: NICOTINE 14 MG/24 HR PATCH TD SCH (08:29)
[2021-07-15] MEDS: predniSONE 5 MG TAB PO SCH (08:29)
[2021-07-15] MEDS: UMECLIDINIUM/VILANTEROL 62.5/25MCG 7 PUFFS/INHALER INH SCH (08:29)
[2021-07-15] MEDS: FOLIC ACID 1 MG TAB PO SCH (08:29)
[2021-07-15] MEDS: THIAMINE HCL 100 MG TAB PO SCH (08:29)
[2021-07-15] MEDS: FAMOTIDINE 40 MG TABLET PO SCH (08:29)
[2021-07-15] MEDS: PANTOprazole 40 MG TAB PO SCH (08:29)
[2021-07-15 08:52] LABS: BUN Creatinine Ratio 8.9 (10-20); Calcium 8.1 mg/dl (8.5-10.1); Creatinine Clr Calc Pharmacy 47.8 ml/min; Est GFR (African American) 50.5 ml/min; Est GFR (Non-African American) 43.6 ml/min; Magnesium 1.3 mg/dl (1.8-2.4); Potassium 3.1 mmol/L (3.5-5.1)
[2021-07-15 08:53] LABS: Phosphorus 2.2 mg/dl (2.5-4.9)
[2021-07-15] MEDS: THIAMINE HCL 500 MG in 0.9 % SODIUM CHLORIDE 100 ML IV SCH ×3 (10:49→21:33)
[2021-07-15] MEDS: ACETAMINOPHEN 325 MG TAB PO PRN (11:25)
[2021-07-15] MEDS: MAGNESIUM OXIDE 400 MG TAB PO SCH ×2 (13:01→21:34)
[2021-07-15] MEDS: POTASSIUM CHLORIDE CRTAB 20 MEQ TABCR PO SCH ×2 (13:01→21:34)
[2021-07-15] MEDS: MAGNESIUM SULFATE / D5W 1 GM/100 ML BAG IV SCH ×2 (13:01→15:22)
--- NOTE | 2021-07-15 15:05 | XRay Report ---
XR chest 1V portable CLINICAL HISTORY: altered mental state ?pneumonia COMPARISON STUDY: No previous studies for comparison. FINDINGS: There are median sternotomy wires and mediastinal surgical clips. There is no evidence for pulmonary edema. Biapical opacities are nonspecific but favor scarring. Right basilar opacity is note d. Minimal left basilar opacity is present. There is mild elevation of the right hemidiaphragm. IMPRESSION: 1. Right basilar opacity which favors pneumonia. Atelectasis could appear similar although is conside red less likely. Radiographic follow-up is recommended to ensure resolution. 2. Biapical opacities are nonspecific which favor scarring. ACT 112: Negative or not required by law. Electronically signed by: Gaston Nettles M.D. 07/15/2021 3:04 PM
--- NOTE | 2021-07-15 15:15 | Hospitalist Progress Note ---
Date of Service July 15, 2021 Assessment & Plan (1) Altered mental state: Plan: Significant worsening overnight with x1 fever (although retest was normal) ?lorazepam use ?alcohol withdrawal/hallucinosis No CT head on admission therefore will get this now No CXR on admission therefore will also get this UA - protein, blood and epithelial cells, will get CK to assess for rhabdomyolysis given lack of RBCs. Protein/Cr ratio pending. Possible Wernicke's/Korsakoffs - start IV thiamine 500mg TID 07/14, continue for three days (2) Ambulatory dysfunction: Plan: CT head - pending MRI cervical spine without spinal stenosis B1 level pending although this was taken after Banana bag given in ER therefore not training representative - IV thiamine as above B12 and folate levels WNL PT/OT (3) Electrolyte abnormality: Plan: Replace Mg, K and PO as needed Repeat daily levels until stable. (4) Alcohol withdrawal: Plan: Admitted as he endorses he wants to stop drinking - currently having hallucinosis - Gabapentin taper finished. AWSS 5-10 [07/14] with Lorazepam total 4 mg IV given last 24 hours - Continue PRN lorazepam 1-3mg IV per AWSS (5) Afib: Plan: diagnosed in 2019 and converted in house on sotalol- remains in NSR - He is on Apixaban for his history of PE - No rate controlling agents at this time - history of sick sinus syndrome (6) CAD (coronary artery disease): Plan: As above per HPI - Continue amlodipine for his HTN - Continue rosuvastatin 40 daily - likely not on an AMANDA secondary to his renal function - add back daily asa- recently stopped as patient stopped taking this (7) Hypertension: Plan: As above (8) CKD (chronic kidney disease), stage III: Plan: At baseline (9) COPD, mild: Plan: Continue albuterol prn - continue equivalent or his Trelegy daily - Continue his AZT MWF- can likely wean down- started on 27 June (10) Obstructive sleep apnea: Plan: Intolerant to CPAP (11) Cold sore: Plan: Continue his acyclovir as needed (12) Hyperlipidemia: Plan: Continue rosuvastatin 40 mg daily (13) Allergic dermatitis: Plan: Continue prednisone 5mg daily - unclear history regarding this, recommend dermatology follow up (14) Tremor: Plan: Chronic with his alcohol May confound his AWWS follow total symptomatology. (15) Acute renal failure: Plan: Resolved. Monitor off IV fluids. Will continue to monitor. Admission and Anticipated Discharge Date Admission Date: July 10, 2021 Subjective Appears more lethargic today. having hallucinations and seeing people in the room that are not there. Unable to open both eyes for me to follow one step commands or examine for diplopia. Falls asleep easily. Did not participate with OT. Review of Systems Review of Systems: Unobtainable due to cognitive status Physical Exam Constitutional: WD/WN, vitals as above Eyes: + anicteric sclerae and EOM intact bilaterally (unable to assess diplopia due to confusion); normal pupil size and no nystagmus Respiratory: normal respiratory effort, lungs clear to auscultation Cardiovascular: Rate/Rhythm: regular rhythm and + tachycardic Heart Sounds: no murmur Gastrointestinal (Abdomen): Percussion/Palpation: abdomen soft; abdomen nontender Neurologic: moves all extremities, awake and + confused; no focal motor deficits (no lateralizing deficit) Psychiatric: Orientation: alert and oriented to person; + not oriented to place and + not oriented to time Eye Contact: + fair eye contact Results & Data Results & Data ([facility]) Vital Signs (Past 12 Hours) Vital Signs Temp Pulse Pulse Resp BP Pulse Ox 07/15/21 11:00 36.4 C L 97 H 22 119/74 92 07/15/21 07:34 97 H 07/15/21 07:00 37.0 C 97 H 22 126/77 92 PG Care Time/CCT Total # of Minutes Spent Total Time Spent with Patient: Total time spent is greater than 50% in coordination of care (as documented) at patient's floor/unit and/or counseling patient: Coding Level of Care Code 30990 Subseq Hosp Care Lvl 3 Diagnoses Ambulatory dysfunction R26.2 Alcohol withdrawal F10.230 Complication of substance-induced condition: uncomplicated Afib I48.91 CAD (coronary artery disease) I25.10 Hypertension I10 CKD (chronic kidney disease), stage III N18.3 COPD, mild J44.9 Obstructive sleep apnea G47.33 Cold sore B00.1 Hyperlipidemia E78.5 Allergic dermatitis L23.9 Tremor R25.1 Acute renal failure N17.9 Altered mental state R41.82 Electrolyte abnormality E87.8 (1) Alcohol withdrawal Complication of substance-induced condition: uncomplicated Qualified Code(s): F10.230 - Alcohol dependence with withdrawal, uncomplicated
--- NOTE | 2021-07-15 15:24 | CT Scan Report ---
CT SCAN OF THE BRAIN WITHOUT IV CONTRAST CLINICAL HISTORY: Change in mental status. COMPARISON STUDY: No priors. TECHNIQUE: Unenhanced axial CT scan of the brain is performed from the vertex to the skull base. A do se lowering technique was utilized adhering to the principles of ALARA. CT DOSE: 853.38 mGy.cm FINDINGS: Brain parenchyma: There are age-related involutional changes noting mild subcortical and periventric ular microangiopathic change. There is no hemorrhage, mass effect, or evidence of acute territorial i schemia by CT criteria. Singh-white matter differentiation is preserved. No extra-axial fluid collecti on is seen. Ventricles, sulci, cisterns: Prominent secondary to involutional change. Intracranial vasculature: There is atherosclerotic calcification of the cavernous carotid and vertebr al arteries. Calvarium: Unremarkable. Sinuses and mastoids: The =paranasal sinuses are clear. There are bilateral mastoid effusions. Orbits: The bony orbits are grossly intact. There are bilateral ocular lens implants. IMPRESSION: There is no hemorrhage, mass effect, or evidence of acute territorial ischemia by CT etienne perez. ACT 112: Negative or not required by law. Electronically signed by: Feliciano Chawla M.D. 07/15/2021 3:22 PM
[2021-07-15] MEDS ORDERED: levoFLOXacin/D5W 750 MG/150 ML BAG IV SCH (16:00)
[2021-07-15] MEDS: ROSUVASTATIN CALCIUM 20 MG TAB PO SCH (21:37)
[2021-07-15] MEDS: MONTELUKAST SODIUM 10 MG TABLET PO SCH (21:59)
[2021-07-16] MEDS: ACETAMINOPHEN 325 MG TAB PO PRN (00:39)
[2021-07-16 07:23] LABS: Basophils # (auto) 0.02 K/uL (0-0.2); Basophils % (auto) 0.2 %; Eosinophils # (auto) 0.34 K/uL (0-0.5); Eosinophils % (auto) 3.9 %; Hematocrit (blood only) 30.6 % (42-52); Hemoglobin 10.1 g/dL (14.0-18.0); Immature Granulocytes # (auto) 0.01 K/uL (0.00-0.02); Immature Granulocytes % (auto) 0.1 %; Lymphocytes # (auto) 1.21 K/uL (1.2-3.4); Lymphocytes % (auto) 13.7 %; Mean Corpuscular Hemoglobin 30.2 pg (25-34); Mean Corpuscular Volume 91.6 fL (80-100); Mean Platelet Volume 9.3 fL (7.4-10.4); Monocytes # (auto) 0.91 K/uL (0.11-0.59); Monocytes % (auto) 10.3 %; Neutrophils # (auto) 6.32 K/uL (1.4-6.5); Neutrophils % (auto) 71.8 %; Platelet Count 166 K/uL (130-400); RDW Coefficient of Variation 18.1 % (11.5-14.5); RDW Standard Deviation 59.9 fL (36.4-46.3); Red Blood Count 3.34 M/uL (4.7-6.1); White Blood Count 8.81 K/uL (4.8-10.8)
[2021-07-16] MEDS: ACYCLOVIR 5% OINT 15 GM TUBE EXT SCH ×5 (07:37→23:31)
[2021-07-16] MEDS: POT PHOSPHATE MONOBASIC W/ SOD TAB PO SCH ×4 (07:38→23:31)
[2021-07-16] MEDS: MAGNESIUM OXIDE 400 MG TAB PO SCH ×2 (07:38→23:31)
[2021-07-16] MEDS: THIAMINE HCL 100 MG TAB PO SCH (07:38)
[2021-07-16] MEDS: APIXABAN 5 MG TABLET PO SCH ×2 (07:38→22:57)
[2021-07-16] MEDS: PANTOprazole 40 MG TAB PO SCH (07:39)
[2021-07-16] MEDS: predniSONE 5 MG TAB PO SCH (07:39)
[2021-07-16] MEDS: FLUTICASONE FUROATE 100MCG 14 PUFFS/INHALER INH SCH (07:39)
[2021-07-16] MEDS: FLUTICASONE PROPIONATE NA SPR 16 GM BTL SCH ×2 (07:39→23:31)
[2021-07-16] MEDS: FAMOTIDINE 40 MG TABLET PO SCH (07:40)
[2021-07-16] MEDS: amLODIPine BESYLATE 5 MG TAB PO SCH (07:40)
[2021-07-16] MEDS: ASPIRIN 81 MG ECTAB PO SCH (07:40)
[2021-07-16] MEDS: NICOTINE 14 MG/24 HR PATCH TD SCH (07:42)
[2021-07-16] MEDS: FOLIC ACID 1 MG TAB PO SCH (07:42)
[2021-07-16] MEDS: UMECLIDINIUM/VILANTEROL 62.5/25MCG 7 PUFFS/INHALER INH SCH (07:43)
[2021-07-16] MEDS: POTASSIUM CHLORIDE CRTAB 20 MEQ TABCR PO SCH ×3 (07:43→23:31)
[2021-07-16 07:53] LABS: Albumin Level 2.4 gm/dl (3.4-5.0); BUN Creatinine Ratio 10.9 (10-20); Est GFR (African American) 58.2 ml/min; Est GFR (Non-African American) 50.2 ml/min; Potassium 3.4 mmol/L (3.5-5.1)
[2021-07-16 07:55] LABS: Albumin Globulin Ratio 0.7 (0.9-2); Bilirubin,Total 0.5 mg/dl (0.2-1); Globulin 3.6 gm/dl (2.5-4.0); Phosphorus 2.3 mg/dl (2.5-4.9)
[2021-07-16] MEDS: LORazepam 1 MG/2 ML VIAL IV PRN ×2 (07:55→23:26)
[2021-07-16] MEDS: THIAMINE HCL 500 MG in 0.9 % SODIUM CHLORIDE 100 ML IV SCH ×3 (09:15→23:26)
[2021-07-16 12:45] LABS: Creatinine Urine Random 77.4 mg/dl; Protein Creatinine Ratio Urine 1.3 (0-0.2); Total Protein Urine Random 99.9 mg/dl (0-11.9)
--- NOTE | 2021-07-16 14:43 | Hospitalist Progress Note ---
Date of Service July 16, 2021 Assessment & Plan (1) Altered mental state: Plan: Improving today CT head negative UA - protein, blood and epithelial cells CK negative Suspect Wernicke's Korsakoffs (2) Wernicke encephalopathy: Plan: Improvement in diplopia fits this diagnosis. B1 level taken after Banana bag given in ER therefore not office services representative Unfortunately suspect some degree of Korsakoffs in addition since hallucinations appear to be continuing IV thiamine 500mg TID for 3 days (last day 07/17) (3) Aspiration pneumonia: Plan: Continue Levaquin SLT to reassess patient (4) Orthostatic hypotension: Plan: Stop amlodipine (5) Ambulatory dysfunction: Plan: Given bladder/bowel incontinence will get lumbar spine MRI to rule out cauda equina although suspect this is unlikely CT head - negative MRI cervical spine without spinal stenosis B1 level pending although this was taken after Banana bag given in ER therefore not office services representative - IV thiamine as above B12 and folate levels WNL PT/OT (6) Electrolyte abnormality: Plan: Replace Mg, K and PO as needed Repeat daily levels until stable. (7) Alcohol withdrawal: Plan: Admitted as he endorses he wants to stop drinking - currently having hallucinosis - Gabapentin taper finished. AWSS 5-10 [07/14] with Lorazepam total 4 mg IV given last 24 hours - Continue PRN lorazepam 1-3mg IV per AWSS (8) Afib: Plan: diagnosed in 2019 and converted in house on sotalol- remains in NSR - He is on Apixaban for his history of PE - No rate controlling agents at this time - history of sick sinus syndrome (9) CAD (coronary artery disease): Plan: As above per HPI - Continue amlodipine for his HTN - Continue rosuvastatin 40 daily - likely not on an AMANDA secondary to his renal function - add back daily asa- recently stopped as patient stopped taking this (10) Hypertension: Plan: As above (11) CKD (chronic kidney disease), stage III: Plan: At baseline (12) COPD, mild: Plan: Continue albuterol prn - continue equivalent or his Trelegy daily - Continue his AZT MWF- can likely wean down- started on 27 June (13) Obstructive sleep apnea: Plan: Intolerant to CPAP (14) Cold sore: Plan: Continue his acyclovir as needed (15) Hyperlipidemia: Plan: Continue rosuvastatin 40 mg daily (16) Allergic dermatitis: Plan: Continue prednisone 5mg daily - unclear history regarding this (?hives), recommend dermatology follow up (17) Tremor: Plan: Chronic with his alcohol May confound his AWWS follow total symptomatology. (18) Acute renal failure: Plan: Resolved. Monitor off IV fluids. Will continue to monitor. Admission and Anticipated Discharge Date Admission Date: July 10, 2021 Subjective Improved mentation today. Reports his diplopia has resolved. Continues to see people who are not there in the room. Reports loss of bladder and bowel incontinence. No significant change in his strength/balance. Orthostatic with OT this morning. Lorazepam 4mg given in last 24 hours. Review of Systems Review of Systems: All systems reviewed & are unremarkable except as noted in HPI & below Physical Exam Constitutional: WD/WN, vitals as above Eyes: + anicteric sclerae and EOM intact bilaterally (no diplopia); normal pupil size and no nystagmus Respiratory: normal respiratory effort, lungs clear to auscultation Cardiovascular: Rate/Rhythm: regular rate and regular rhythm Heart Sounds: no murmur Gastrointestinal (Abdomen): Percussion/Palpation: abdomen soft; abdomen nontender Neurologic: moves all extremities, awake and + confused; no focal motor deficits (no lateralizing deficit) Speech / Cognition: normal speech Coordination: + abnormal [id number] test and + abnormal [id number] test Psychiatric: Orientation: alert, oriented to person and oriented to place; + not oriented to time Eye Contact: + fair eye contact Motor Behavior: + psychomotor agitation Speech: normal rate/rhythm/volume of speech Affect: + anxious affect Hallucinations: + visual hallucinations Results & Data Results & Data ([facility]) Vital Signs (Past 12 Hours) Vital Signs Temp Pulse Pulse Resp BP Pulse Ox 07/16/21 11:36 37.0 C 91 H 20 102/67 94 07/16/21 07:42 36.9 C 87 16 123/76 94 07/16/21 07:28 88 PG Care Time/CCT Total # of Minutes Spent Total Time Spent with Patient: Total time spent is greater than 50% in coordination of care (as documented) at patient's floor/unit and/or counseling patient: Coding Level of Care Code 64425 Subseq Hosp Care Lvl 3 Diagnoses Altered mental state R41.82 Ambulatory dysfunction R26.2 Electrolyte abnormality E87.8 Alcohol withdrawal F10.230 Complication of substance-induced condition: uncomplicated Afib I48.91 CAD (coronary artery disease) I25.10 Hypertension I10 CKD (chronic kidney disease), stage III N18.3 COPD, mild J44.9 Obstructive sleep apnea G47.33 Cold sore B00.1 Hyperlipidemia E78.5 Allergic dermatitis L23.9 Tremor R25.1 Acute renal failure N17.9 Wernicke encephalopathy E51.2 Aspiration pneumonia J69.0 Orthostatic hypotension I95.1 (1) Alcohol withdrawal Complication of substance-induced condition: uncomplicated Qualified Code(s): F10.230 - Alcohol dependence with withdrawal, uncomplicated
[2021-07-16] MEDS: levoFLOXacin/D5W 750 MG/150 ML BAG IV SCH (16:11)
[2021-07-16] MEDS ORDERED: LORazepam 2 MG/4 ML VIAL IV PRN ×2 (21:16→21:35)
[2021-07-16] MEDS ORDERED: LORazepam 3 MG/6 ML VIAL IV PRN (21:35)
[2021-07-16] MEDS ORDERED: ATIVAN IV ALCOHOL WITHDRAWL IV PRN (21:35)
[2021-07-16] MEDS: ROSUVASTATIN CALCIUM 20 MG TAB PO SCH (22:56)
[2021-07-16] MEDS: MONTELUKAST SODIUM 10 MG TABLET PO SCH (22:57)
[2021-07-17] MEDS: ACYCLOVIR 5% OINT 15 GM TUBE EXT SCH ×5 (05:44→22:21)
[2021-07-17 07:09] LABS: Albumin Level 2.4 gm/dl (3.4-5.0); BUN Creatinine Ratio 10.2 (10-20); Calcium 7.9 mg/dl (8.5-10.1); Creatinine Clr Calc Pharmacy 51.7 ml/min; Est GFR (African American) 57.7 ml/min; Est GFR (Non-African American) 49.8 ml/min; Magnesium 1.8 mg/dl (1.8-2.4); Potassium 3.6 mmol/L (3.5-5.1)
[2021-07-17 07:11] LABS: Albumin Globulin Ratio 0.7 (0.9-2); Bilirubin,Total 0.4 mg/dl (0.2-1); Globulin 3.6 gm/dl (2.5-4.0); Phosphorus 2.1 mg/dl (2.5-4.9)
--- NOTE | 2021-07-17 08:21 | Magnetic Resonance Report ---
MRI OF THE LUMBAR SPINE WITHOUT CONTRAST CLINICAL HISTORY: loss of bowel/bladder control, b/l LE weakness COMPARISON STUDY: No previous studies for comparison. TECHNIQUE: Utilizing a 1.5 Renae magnet and dedicated coil, multiplanar, [facility]iecho [facility] was performed without IV contrast. FINDINGS: For purposes of numbering on this exam, the L5-S1 disc space is assigned to axial image 28 of 30. Nico tebral body heights are maintained. There are a few Schmorl's nodes within lumbar spine. There is no intracanalicular mass or fluid collection. The conus terminates at the upper L2 level. Paravertebral soft tissues are unremarkable. There is no suspicious marrow replacement. The axial images are signif icantly compromised by motion artifact. The sagittal images are diagnostic. L1-2: The central canal and neural foramen are patent. L2-3: The central canal and neural foramen are patent. There is mild facet arthrosis. L3-4: The central canal and neural foramen are patent. There is mild facet arthrosis. L4-5: There is a central annular tear. There is no central canal stenosis. There may be a tiny centra l disc protrusion. There is mild facet arthrosis. The neural foramen are patent. L5-S1: Facet arthrosis is present. There is mild disc bulge. The central canal is patent. Left neural foramen is patent. There is moderate narrowing of the right neural foramen. IMPRESSION: 1. No acute process within the lumbar spine by MRI. Exam compromised by motion artifact however sagit milton images diagnostic. 2. Patent central canal. Moderate narrowing of the right L5-S1 neural foramen, as described above. 2. Mild multilevel degenerative disc disease and mild to moderate facet arthrosis. ACT 112: Negative or not required by law. Electronically signed by: Gaston Nettles M.D. 07/17/2021 8:20 AM
[2021-07-17] MEDS: ASPIRIN 81 MG ECTAB PO SCH (08:49)
[2021-07-17] MEDS: POT PHOSPHATE MONOBASIC W/ SOD TAB PO SCH (08:49)
[2021-07-17] MEDS: APIXABAN 5 MG TABLET PO SCH ×2 (08:50→21:12)
[2021-07-17] MEDS: PANTOprazole 40 MG TAB PO SCH (08:50)
[2021-07-17] MEDS: MAGNESIUM OXIDE 400 MG TAB PO SCH (08:50)
[2021-07-17] MEDS: FAMOTIDINE 40 MG TABLET PO SCH (08:50)
[2021-07-17] MEDS: predniSONE 5 MG TAB PO SCH (08:51)
[2021-07-17] MEDS: UMECLIDINIUM/VILANTEROL 62.5/25MCG 7 PUFFS/INHALER INH SCH (08:51)
[2021-07-17] MEDS: FLUTICASONE PROPIONATE NA SPR 16 GM BTL SCH ×2 (08:51→21:13)
[2021-07-17] MEDS: THIAMINE HCL 100 MG TAB PO SCH (08:51)
[2021-07-17] MEDS: FOLIC ACID 1 MG TAB PO SCH (08:51)
[2021-07-17] MEDS: FLUTICASONE FUROATE 100MCG 14 PUFFS/INHALER INH SCH (08:52)
[2021-07-17] MEDS: THIAMINE HCL 500 MG in 0.9 % SODIUM CHLORIDE 100 ML IV SCH ×3 (08:52→21:30)
[2021-07-17] MEDS: POTASSIUM CHLORIDE CRTAB 20 MEQ TABCR PO SCH (08:52)
[2021-07-17] MEDS: NICOTINE 14 MG/24 HR PATCH TD SCH (09:16)
--- NOTE | 2021-07-17 11:38 | Hospitalist Progress Note ---
Date of Service July 17, 2021 Assessment & Plan (1) Altered mental state: Plan: Reviewing course overall appears improvedcontinue high-dose thiamine 1 more day (2) Wernicke encephalopathy: Plan: Improvement in diplopia fits this diagnosis. B1 level taken after Banana bag given in ER therefore not bilingual inside sales representative Unfortunately suspect some degree of Korsakoffs in addition since hallucinations appear to be continuing IV thiamine 500mg TID for 3 days (last day 07/17) (3) Aspiration pneumonia: Plan: Not convincing per my review; noted on LevaquinI did not change for now; incentive spirometry (4) Orthostatic hypotension: Plan: Likely combination of deconditioning and alcoholic neuropathy possiblydoes not need antihypertensives in any case (5) Ambulatory dysfunction: Plan: At present PT/OT; noted history of bladder and bowel incontinence; MRI lumbar spine noncontributory MRI brain might be more valuableordered; 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 (7) Alcohol withdrawal: Plan: Should be off withdrawal; noted lorazepam reinstituted; await psychiatry inputconsulted per recommendation of liaison, very reasonable (8) Afib: Plan: diagnosed in 2019 and converted in house on sotalol- remains in NSR - He is on Apixaban for his history of PE - No rate controlling agents at this time - history of sick sinus syndrome (9) CAD (coronary artery disease): Plan: Continue chewable aspirin; statin on hold while n.p.o. as much as possible (10) Hypertension: Plan: Blood pressure goodfollow-up without amlodipine (11) CKD (chronic kidney disease), stage III: Plan: Renal function stable; noted proteinuriacan follow (12) COPD, mild: Plan: No evidence of exacerbationfollow clinically and albuterol as needed as needed (13) Obstructive sleep apnea: Plan: Intolerant to CPAP (14) Cold sore: Plan: Continue his acyclovir as needed (15) Hyperlipidemia: Plan: Held statin while n.p.o. as much as possible; lipid panel (16) Allergic dermatitis: Plan: Continue prednisone 5mg daily - unclear history regarding this (?hives), recommend dermatology follow up (17) Tremor: Plan: Chronic with his alcohol May confound his AWWS follow total symptomatology. (18) Acute renal failure: Plan: Resolved. Monitor off IV fluids. Will continue to monitor. (19) Oropharyngeal dysphagia: Plan: Speech therapy recommended n.p.o. except sips and they recommend ENT and GI consultlikely to be oropharyngeal but consults requested Admission and Anticipated Discharge Date Admission Date: July 10, 2021 Subjective First time meeting patient no complaints; awake and alert though tremulous . Physical Exam Physical Exam: Constitutional and general: No acute distress as such though looks chronically unwell, looks biologic age Head and face: No puffiness, atraumatic Eyes: No scleral icterus, extraocular movements normal Neck: Supple, no JVD Musculoskeletal: No acute joint swelling, no bony abnormalities Skin/dermatologic/integument: No rash, no purpura Hematologic and lymphatic: pallor +, no petechia Gastrointestinal/abdomen: Nondistended, soft, nonacute Neurologic: Cranial nerves intact, nonfocal; tremulous Psychiatry: Awake, alert, communicative Cardiovascular: Heart rhythm regular, no rub, no murmur, no gallop Respiratory: Chest movements equal, no use of accessory muscles, no adventitious sounds Extremities: No edema, no cyanosis Results & Data Results & Data ([facility]) Vital Signs (Past 12 Hours) Vital Signs Temp Pulse Pulse Resp BP Pulse Ox 07/17/21 07:30 87 07/17/21 07:00 37.4 C 93 H 20 110/66 93 07/17/21 03:00 36.7 C 89 18 120/75 95 07/17/21 00:00 91 H 07/16/21 23:47 36.4 C L 91 H 16 121/74 94 Laboratory Results Laboratory Results - last 24 hr 07/16/21 07/17/21 12:15 06:13 Sodium 138 Potassium 3.6 Chloride 111 H Carbon Dioxide 20 L Anion Gap 8.0 BUN 15 Creatinine 1.45 H Est Cr Clr Drug Dosing 51.7 Est GFR ( Amer) 57.7 Est GFR (Non-Af Amer) 49.8 BUN/Creatinine Ratio 10.2 Glucose 84 Calcium 7.9 L Phosphorus 2.1 L Magnesium 1.8 Total Bilirubin 0.4 AST 31 ALT 27 Alkaline Phosphatase 59 Total Protein 6.0 L Albumin 2.4 L Globulin 3.6 Albumin/Globulin Ratio 0.7 L Ur Random Creatinine 77.4 U Random Total Protein 99.9 H Protein/Creatinin Ratio 1.3 H PG Care Time/CCT Total # of Minutes Spent Total Time Spent with Patient: Total time spent is greater than 50% in coordination of care (as documented) at patient's floor/unit and/or counseling patient: Coding Level of Care Code 90554 Subseq Hosp Care Lvl 3 Diagnoses Altered mental state R41.82 Wernicke encephalopathy E51.2 Aspiration pneumonia J69.0 Orthostatic hypotension I95.1 Ambulatory dysfunction R26.2 Electrolyte abnormality E87.8 Alcohol withdrawal F10.230 Complication of substance-induced condition: uncomplicated Afib I48.91 CAD (coronary artery disease) I25.10 Hypertension I10 CKD (chronic kidney disease), stage III N18.3 COPD, mild J44.9 Obstructive sleep apnea G47.33 Cold sore B00.1 Hyperlipidemia E78.5 Allergic dermatitis L23.9 Tremor R25.1 Acute renal failure N17.9 Oropharyngeal dysphagia R13.12 (1) Alcohol withdrawal Complication of substance-induced condition: uncomplicated Qualified Code(s): F10.230 - Alcohol dependence with withdrawal, uncomplicated
--- NOTE | 2021-07-17 11:55 | Gastrointestinal Consultation ---
Date of Consultation July 17, 2021 Assessment & Plan (1) Gagging episode: 66 year old medically complex male admitted w/ Wernicke encephalopathy and medical detox, GI asked to evaluate for dysphagia and gagging/vomiting with attempted PO intake. He has history of bad oral ivonne in December and notes sore mouth, tongue and intermittent dysphagia in addition to gagging. No acute indication for EGD as he had this test 6 months ago Would medically optimize before EGD unless emergently indicated Perhaps some of his symptoms are secondary to residual ivonne infection as he remains on PO and inhaled steroids Consider empiric nystatin swish and swallow and diflucan Would continue PO PPI 40 mg daily and add pepcid 20 mg in the evening Can arrange OP EGD if symptoms persist Thank you for allowing us to participate in the care of this patient. Please call with any acute changes, questions or concerns. Please see addendum below with additional recommendation from my supervising physician. Supervising Physician Co-Signing Physician Notes Consult for ? dysphagia CLAIMS DIRECTOR results reviewed PE - in active withdrawal, thrush noted on his tongue Per chart review- concerns for korsakoff's syndrome Given his current state of withdrawal, he is also on eliquis, with thrus present- would optimize him from a medical standpoint. Treat thrush with diflucan and also nystatin swish and swallow. Outpatient EGD can be considered in the future if off eliquis and also once he is more optimized from an alcohol/medical standpoint. He can continue with a pureed diet for now, supplemental boost shakes prn. History of Present Illness Reason for Consultation: dysphagia see CLAIMS DIRECTOR report Requesting Physician: Rodger Attending Physician: Angela Soares MD History of Present Illness 66 year old male with history of CAD, HTN, HLD, Afib anticoagulated, CABG, ETOH abuse, ETOH withdraw, GERD, COPD, allergic rhinitis, DVT/PE, LITA, active smoker, anxiety admitted for medical detox, Wernicke encephalopathy GI asked to evaluate for dysphagia. Pt was seen and evaluated, chart reviewed. Poor historian but notes he has been having bad GERD and inability to tolerate PO secondary to gagging and emesis with attempted PO for a few weeks. Suggests sometimes if he is able to swallow food will get hung up. Notes a lot of burning, regurgitation. Suggests sore throat, sore mouth and tongue today. Denies abdominal pain but is hungry. No nausea. No vomiting unless attempting PO intake. Denies black/blood stools. Video swallow 2020: no aspiration EGD 2020: schatztki ring, small HH, oral yeast Allergies Allergy/AdvReac Type Severity Reaction Status Date / Time Penicillins Allergy Severe Anaphylaxis Verified 07/10/21 17:49 ciprofloxacin Allergy Intermediate hives & Verified 07/10/21 17:49 nausea strawberry Allergy Hives Verified 07/11/21 14:20 codeine AdvReac Mild Vomiting Verified 07/10/21 17:49 hydromorphone [From Dilaudid] AdvReac Mild Vomiting Verified 07/10/21 17:49 metronidazole AdvReac Mild N&V Verified 07/10/21 17:49 morphine AdvReac Mild N&V Verified 07/10/21 17:49 Tetracyclines AdvReac Mild Vomiting Verified 07/10/21 17:49 Home Medications Medication Instructions Recorded Confirmed Type albuterol sulfate 90 mcg/actuation 2 puffs INHALATION Q4H PRN #18 gm 06/13/19 07/10/21 Rx aerosol inhaler multivitamin (Multiple Vitamins) 1 tab PO QAM 06/13/19 07/10/21 History nitroglycerin 0.4 mg sublingual 0.4 mg SL Q5M PRN #25 tab 06/13/19 07/10/21 Rx tablet omega-3 acid ethyl esters 1 gram 1 cap PO DAILY cap 06/13/19 07/10/21 History capsule cetirizine 10 mg tablet 10 mg PO DAILY PRN #90 tab 07/10/19 07/10/21 Rx promethazine 12.5 mg tablet 12.5 mg PO Q6H PRN #30 tab 12/28/19 07/10/21 Rx erythromycin 5 mg/gram (0.5 %) eye 0.5 inch OPHTHALMIC (EYE) TID #1 g 12/10/20 07/10/21 Rx ointment famotidine 40 mg tablet (Pepcid) 40 mg PO QAM #90 tab 12/10/20 07/10/21 Rx rosuvastatin 40 mg tablet 40 mg PO QPM #90 tab 12/27/20 07/10/21 Rx apixaban 5 mg tablet 5 mg PO BID #60 tab 02/28/21 07/10/21 Rx fluticasone propionate 50 1 spray INTRANASAL BID #18.2 gm 04/15/21 07/10/21 Rx mcg/actuation nasal spray,suspension acyclovir 5 % topical ointment 1 applic TOPICAL .COMPLEX 7 Days 04/23/21 07/10/21 Rx #5 g albuterol sulfate 90 mcg/actuation 2 puff INHALATION Q6H PRN #8.5 g 05/19/21 07/10/21 Rx aerosol inhaler (ProAir HFA) fluticasone fur. 100 mcg-umeclid 1 inh INHALATION DAILY 05/19/21 07/10/21 History 62.5 mcg-vilant 25 mcg inhalat.powder (Trelegy Ellipta) azithromycin 500 mg tablet 500 mg PO DAILY 05/20/21 07/10/21 History chlordiazepoxide HCl 10 mg capsule 10 mg PO TID #30 cap 05/28/21 07/10/21 Rx montelukast 10 mg tablet 10 mg PO HS #90 tab 06/02/21 07/10/21 Rx pantoprazole 40 mg tablet,delayed 40 mg PO DAILY #30 tab 06/18/21 07/10/21 Rx release (Protonix) prednisone 5 mg tablet 5 mg PO QAM #30 tab 07/08/21 07/10/21 Rx amlodipine 2.5 mg tablet 2.5 mg PO DAILY 07/10/21 07/10/21 History folic acid 1 mg tablet 1 mg PO DAILY 07/10/21 07/10/21 History thiamine HCl (vitamin B1) 100 mg 100 mg PO DAILY 07/10/21 07/10/21 History tablet Patient History Medical History Allergic dermatitis reason for daily Prednisone Anemia Asthmatic bronchitis Cervical lymphadenopathy CHF (congestive heart failure) Cholelithiasis Chronic GERD Chronic steroid use due to unexplained hives at times, believed to be an allergy, have not been able to pin-point exact allergy Colon polyps COPD, mild Coronary artery disease involving coronary bypass graft Diverticulitis, colon Empyema lung Hereditary and idiopathic peripheral neuropathy Hiatal hernia History of foreign body in eye metal - removed with a laser Hyperlipidemia Hypertension IBS (irritable bowel syndrome) Incisional hernia Myalgia Myocardial Infarction 2007 - CABG Obstructive sleep apnea non-compliant, no machine Osteoarthrosis Pneumonia hx Pulmonary embolism reason for eliquis, July 2019. Retained ureteral stent Tobacco abuse Urticaria Surgical History H/O hemorrhoidectomy History of cardiac cath History of cataract surgery BILATERAL History of colonoscopy History of coronary artery bypass graft x3 vessels, 2007 at [place], [place]. Follows with Dr. Alexander History of cystoscopy with stent replacements History of dental surgery History of esophagogastroduodenoscopy (EGD) History of heart artery stent x2 prior to 2007. Hx of tonsillectomy S/P exploratory laparotomy with repair of left ureter, partial colon resection and incisional hernia repair with mesh. (November 2018) S/P laparotomy Nov 2017, during colon resection left ureter was connected to colon, attempted to seperate, unable and "nicked" the ureter. Placed a ureteral stent (changed periodically) Status post laparoscopic colectomy (2017) r/t diverticulitis --> turned to open laparotomy due to complications Family History Father Thyroid disease Mother Asthma Heart disease Depression Hypertension Dyslipidemia Thyroid disease Sister Heart disease Asthma Pulmonary embolism Grandfather (Maternal) Myocardial infarction Denies family history of Ovarian cancer Prostate cancer Breast cancer Lung cancer Colorectal cancer Social History Smoking Status: Current every day smoker Tobacco Type: Cigarettes packs per day: 0.5; Years Smoked: 46; Cigarettes Per Day: 10-12; Second Hand Exposure: No; Hx Alcohol Use: Yes Alcohol type: beer and hard liquor Alcohol type Comment: 1/5 bottle Yoni Olvera/day Alcohol Intake Frequency: 4 or More x per/Week Hx Substance Use: Yes Preferred Language: Macanese Communication Ability: Unable Hearing Ability: Normal Pony Roll Finisher Required: No Beliefs That Will Affect Care: None marital status: Single Current Living Situation: Family Current Living Situation Comment: lives with 88 yr old mother current occupational status: retired How many Children do You have: 2 Feels Safe at Home: Yes Childhood Exposure to Second-Hand Smoke: No Diet Comment: regular caffeine: Yes (2 cups of tea or coffee) during the past year weight has: remained stable Dental Care, Regularly: Yes Physical Activity Frequency: Does not Exercise Seatbelt Use: never Sunscreen Use: No Assistive Devices: Walker Review of Systems Review of Systems: All systems reviewed & are unremarkable except as noted in HPI & below Physical Exam Constitutional: WD/WN, vitals as above ENMT: tongue appears to have white discoloration Respiratory: normal respiratory effort, lungs clear to auscultation Cardiovascular: RRR, no murmur, no edema Gastrointestinal (Abdomen): normal bowel sounds, soft, nontender, no hepatosplenomegaly Skin: no rashes, warm and dry Results & Data ([facility]) Vital Signs (Past 12 Hours) Vital Signs Temp Pulse Pulse Resp BP Pulse Ox 07/17/21 07:30 87 07/17/21 07:00 37.4 C 93 H 20 110/66 93 07/17/21 03:00 36.7 C 89 18 120/75 95 07/17/21 00:00 91 H 07/16/21 23:47 36.4 C L 91 H 16 121/74 94 Laboratory Results 07/17/21 07/16/21 Range/Units 06:13 12:15 Sodium 138 (136-145) mmol/L Potassium 3.6 (3.5-5.1) mmol/L Chloride 111 H (98-107) mmol/L Carbon Dioxide 20 L (21-32) mmol/L Anion Gap 8.0 (3-11) BUN 15 (7-18) mg/dl Creatinine 1.45 H (0.6-1.4) mg/dl Est Cr Clr Drug Dosing 51.7 ml/min Est GFR ( Amer) 57.7 ml/min Est GFR (Non-Af Amer) 49.8 ml/min BUN/Creatinine Ratio 10.2 (10-20) Glucose 84 (70-99) mg/dl Calcium 7.9 L (8.5-10.1) mg/dl Phosphorus 2.1 L (2.5-4.9) mg/dl Magnesium 1.8 (1.8-2.4) mg/dl Total Bilirubin 0.4 (0.2-1) mg/dl AST 31 (15-37) U/L ALT 27 (12-78) U/L Alkaline Phosphatase 59 (45-117) U/L Total Protein 6.0 L (6.4-8.2) gm/dl Albumin 2.4 L (3.4-5.0) gm/dl Globulin 3.6 (2.5-4.0) gm/dl Albumin/Globulin Ratio 0.7 L (0.9-2) Ur Random Creatinine 77.4 mg/dl U Random Total Protein 99.9 H (0-11.9) mg/dl Protein/Creatinin Ratio 1.3 H (0-0.2)
[2021-07-17 12:13] LABS: Chol HDL Ratio 3; Cholesterol 109 mg/dl (0-200); HDL Cholesterol 41 mg/dl; LDL Cholesterol Calculated 46 mg/dl; Triglycerides 109 mg/dl (0-150); VLDL Cholesterol 22 mg/dl
[2021-07-17] MEDS ORDERED: NYSTATIN SUSP 500,000 U/5 ML UDC PO SCH (17:00)
--- NOTE | 2021-07-17 17:08 | ENT Consultation ---
Date of Consultation July 17, 2021 Assessment & Plan (1) Oropharyngeal dysphagia: (2) Laryngeal candidiasis: 66yM with Wernicke's encephalopathy with dysphagia to solids and liquids. History of GERD, EGD 12/2020 with Schatzki's ring. Underwent dilation without benefit. MBS 06/17/21 without aspiration. Exam with oral cavity and laryngeal candidiasis, likely the source of his dysphonia. Normal TVF mobility, no mass visualized. -Treatment of thrush with systemic medications (diflucan) recommended -Ongoing SMOKE CONTROL SUPERVISOR eval with swallowing therapy -Diet per SMOKE CONTROL SUPERVISOR -Appreciate GI recs, continue PPI and H2 juan manuel -Follow up as an outpatient -ENT will sign off at this time History of Present Illness Reason for Consultation: dysphagia Attending Physician: Angela Soares MD History of Present Illness 66yM with history of GERD, tobacco and alcohol abuse admitted with Wernicke's encephalopathy and alcohol withdrawal noted to have dysphagia. SMOKE CONTROL SUPERVISOR eval reviewed. Pt reports history of dysphagia since 01/2020. Has undergone EGD with dilation without improvement. +Schatzki's ring. MBS 06/17/21 without aspiration. Pt describes dysphagia to liquids and solids. Feels he gags and then regurgitates food bolus. No throat pain, odynophagia, otalgia. +tobacco 10-12 cigarettes daily and EtOH use. Allergies Allergy/AdvReac Type Severity Reaction Status Date / Time Penicillins Allergy Severe Anaphylaxis Verified 07/10/21 17:49 ciprofloxacin Allergy Intermediate hives & Verified 07/10/21 17:49 nausea strawberry Allergy Hives Verified 07/11/21 14:20 codeine AdvReac Mild Vomiting Verified 07/10/21 17:49 hydromorphone [From Dilaudid] AdvReac Mild Vomiting Verified 07/10/21 17:49 metronidazole AdvReac Mild N&V Verified 07/10/21 17:49 morphine AdvReac Mild N&V Verified 07/10/21 17:49 Tetracyclines AdvReac Mild Vomiting Verified 07/10/21 17:49 Home Medications Medication Instructions Recorded Confirmed Type albuterol sulfate 90 mcg/actuation 2 puffs INHALATION Q4H PRN #18 gm 06/13/19 07/10/21 Rx aerosol inhaler multivitamin (Multiple Vitamins) 1 tab PO QAM 06/13/19 07/10/21 History nitroglycerin 0.4 mg sublingual 0.4 mg SL Q5M PRN #25 tab 06/13/19 07/10/21 Rx tablet omega-3 acid ethyl esters 1 gram 1 cap PO DAILY cap 06/13/19 07/10/21 History capsule cetirizine 10 mg tablet 10 mg PO DAILY PRN #90 tab 07/10/19 07/10/21 Rx promethazine 12.5 mg tablet 12.5 mg PO Q6H PRN #30 tab 12/28/19 07/10/21 Rx erythromycin 5 mg/gram (0.5 %) eye 0.5 inch OPHTHALMIC (EYE) TID #1 g 12/10/20 07/10/21 Rx ointment famotidine 40 mg tablet (Pepcid) 40 mg PO QAM #90 tab 12/10/20 07/10/21 Rx rosuvastatin 40 mg tablet 40 mg PO QPM #90 tab 12/27/20 07/10/21 Rx apixaban 5 mg tablet 5 mg PO BID #60 tab 02/28/21 07/10/21 Rx fluticasone propionate 50 1 spray INTRANASAL BID #18.2 gm 04/15/21 07/10/21 Rx mcg/actuation nasal spray,suspension acyclovir 5 % topical ointment 1 applic TOPICAL .COMPLEX 7 Days 04/23/21 07/10/21 Rx #5 g albuterol sulfate 90 mcg/actuation 2 puff INHALATION Q6H PRN #8.5 g 05/19/21 07/10/21 Rx aerosol inhaler (ProAir HFA) fluticasone fur. 100 mcg-umeclid 1 inh INHALATION DAILY 05/19/21 07/10/21 History 62.5 mcg-vilant 25 mcg inhalat.powder (Trelegy Ellipta) azithromycin 500 mg tablet 500 mg PO DAILY 05/20/21 07/10/21 History chlordiazepoxide HCl 10 mg capsule 10 mg PO TID #30 cap 05/28/21 07/10/21 Rx montelukast 10 mg tablet 10 mg PO HS #90 tab 06/02/21 07/10/21 Rx pantoprazole 40 mg tablet,delayed 40 mg PO DAILY #30 tab 06/18/21 07/10/21 Rx release (Protonix) prednisone 5 mg tablet 5 mg PO QAM #30 tab 07/08/21 07/10/21 Rx amlodipine 2.5 mg tablet 2.5 mg PO DAILY 07/10/21 07/10/21 History folic acid 1 mg tablet 1 mg PO DAILY 07/10/21 07/10/21 History thiamine HCl (vitamin B1) 100 mg 100 mg PO DAILY 07/10/21 07/10/21 History tablet Patient History Medical History Allergic dermatitis reason for daily Prednisone Anemia Asthmatic bronchitis Cervical lymphadenopathy CHF (congestive heart failure) Cholelithiasis Chronic GERD Chronic steroid use due to unexplained hives at times, believed to be an allergy, have not been able to pin-point exact allergy Colon polyps COPD, mild Coronary artery disease involving coronary bypass graft Diverticulitis, colon Empyema lung Hereditary and idiopathic peripheral neuropathy Hiatal hernia History of foreign body in eye metal - removed with a laser Hyperlipidemia Hypertension IBS (irritable bowel syndrome) Incisional hernia Myalgia Myocardial Infarction 2007 - CABG Obstructive sleep apnea non-compliant, no machine Osteoarthrosis Pneumonia hx Pulmonary embolism reason for eliquis, July 2019. Retained ureteral stent Tobacco abuse Urticaria Surgical History H/O hemorrhoidectomy History of cardiac cath History of cataract surgery BILATERAL History of colonoscopy History of coronary artery bypass graft x3 vessels, 2007 at [place], [place]. Follows with Dr. Alexander History of cystoscopy with stent replacements History of dental surgery History of esophagogastroduodenoscopy (EGD) History of heart artery stent x2 prior to 2007. Hx of tonsillectomy S/P exploratory laparotomy with repair of left ureter, partial colon resection and incisional hernia repair with mesh. (November 2018) S/P laparotomy Nov 2017, during colon resection left ureter was connected to colon, attempted to seperate, unable and "nicked" the ureter. Placed a ureteral stent (changed periodically) Status post laparoscopic colectomy (2017) r/t diverticulitis --> turned to open laparotomy due to comp lications Family History Father Thyroid disease Mother Asthma Heart disease Depression Hypertension Dyslipidemia Thyroid disease Sister Heart disease Asthma Pulmonary embolism Grandfather (Maternal) Myocardial infarction Denies family history of Ovarian cancer Prostate cancer Breast cancer Lung cancer Colorectal cancer Social History Smoking Status: Current every day smoker Tobacco Type: Cigarettes packs per day: 0.5; Years Smoked: 46; Cigarettes Per Day: 10-12; Second Hand Exposure: No; Hx Alcohol Use: Yes Alcohol type: beer and hard liquor Alcohol type Comment: 1/5 bottle Yoni Olvera/day Alcohol Intake Frequency: 4 or More x per/Week Hx Substance Use: Yes Preferred Language: Maori Communication Ability: Unable Hearing Ability: Normal Solar Hot Water Installer Required: No Beliefs That Will Affect Care: None marital status: Single Current Living Situation: Family Current Living Situation Comment: lives with 88 yr old mother current occupational status: retired How many Children do You have: 2 Feels Safe at Home: Yes Childhood Exposure to Second-Hand Smoke: No Diet Comment: regular caffeine: Yes (2 cups of tea or coffee) during the past year weight has: remained stable Dental Care, Regularly: Yes Physical Activity Frequency: Does not Exercise Seatbelt Use: never Sunscreen Use: No Assistive Devices: Walker Review of Systems Review of Systems: Negative except as noted above Physical Exam Physical Exam: General: The patient is well-developed, well-nourished, and in no acute distress. Lying comfortably in bed Head and Face: Skull: No obvious deformities Sinus tenderness: There is no tenderness to palpation of the sinuses. Salivary glands: The parotid and submandibular glands are normal in appearance and there are no masses on palpation. Facial strength: Facial motion is symmetric and without weakness. Eyes: Eyelids: There is no periorbital edema. Conjunctiva: There is no conjunctival erythema. Pupils: The pupils are equal, round, and reactive to light. Extraocular muscles: Extraocular movement is normal. Nystagmus: There is no nystagmus. Ears: Right auricle: The pinna is normally formed without skin lesion or mass. Left auricle: The pinna is normally formed without skin lesion or mass. Hearing: Clinical speech human resources receptionist threshold testing is grossly normal. Nose: External: There is no gross external deformity, tenderness, or skin lesion or mass. Mucosa: There is no nasal mucosal edema, inflammation, lesion, or mass. Septum: The nasal septum is midline. There is an approx 2cm septal perforation with clean edges and minimal crusting Nasal cavity: There is no inferior turbinate hypertrophy, edema, inflammation, or mass bilaterally. The inferior meatus and middle meatus were clear bilaterally without mass, lesion, mucopurulence, or polyposis. Oral cavity/Oropharynx: Lips: There are no lip lesions or masses. Oral cavity: There is no inflammation, lesion, or mass involving the gums, gingiva, floor of mouth, buccal mucosa, retromolar trigone, hard palate, soft palate, tongue. Edentulous maxilla. Oral thrush Oropharynx: There is no inflammation, lesion, or mass involving the palatine tonsils or posterior pharyngeal wall. Tonsils surgically absent Neck: General: There are no visible scars or lesions involving the neck. There are no visible or palpable masses involving the neck. The trachea is midline. Lymph nodes: There is no visible or palpable neck lymphadenopathy. Thyroid: There is no visible or palpable thyroid enlargement or nodularity. Respiratory/Pulmonary: There is no stertor or stridor. There is normal respiratory effort without acute distress. Cardiovascular: There is no visible extremity edema. Skin: There are no visible lesions or masses involving the skin of the head and neck region. Neurological: AAO x3 Vestibular system: There is no spontaneous or gaze evoked nystagmus. Psychiatric: Mental status: The patient is awake and alert. Mood/affect: The patient has a normal mood and affect. Procedure: Flexible fiberoptic laryngoscopy Indication: dysphagia, dysphonia Details: Following the topical application of afrin and lidocaine, the flexible laryngoscope was inserted into the nasal cavity. The septum, turbinates, and nasal mucosa were as described above. The nasopharynx was normal. The base of tongue and vallecula were normal. The epiglottis, bilateral arytenoids, and bilateral aryepiglottic folds, and bilateral false vocal folds were normal. There were white plaques throughout the supraglottis and on the larynx. The true vocal folds were normal without masses or lesions. There was normal mobility of the true vocal folds bilaterally. The bilateral pyriform sinuses and postcricoid space was normal. There was no pooling of secretions. No aspiration or penetration was visualized. The patient tolerated the procedure well. Results & Data ([facility]) Vital Signs (Past 12 Hours) Vital Signs Temp Pulse Pulse Resp BP Pulse Ox 07/17/21 15:00 36.5 C 80 20 119/73 99 07/17/21 11:44 36.7 C 86 20 108/67 94 07/17/21 07:30 87 07/17/21 07:00 37.4 C 93 H 20 110/66 93 PG Care Time/CCT Total # of Minutes Spent Total Time Spent with Patient: Total time spent is greater than 50% in coordination of care (as documented) at patient's floor/unit and/or counseling patient: Coding Level of Care Code 25566 Initial Inpt Care Lvl 3 (25 - SIGNIFICANT, SEPARATELY IDENTIFIABLE ) Diagnoses Oropharyngeal dysphagia R13.12 Laryngeal candidiasis B37.89
[2021-07-17] MEDS: levoFLOXacin/D5W 750 MG/150 ML BAG IV SCH (17:12)
--- NOTE | 2021-07-17 17:42 | Psychiatric Consultation ---
Date of Consultation July 17, 2021 Impression / Recommendations Impression 66 yo male with significant hx of EToh dependence, significant ongoing encephalopathy though his ataxia and ?nystagmus have improved a bit with thiamine treatment. There was some concern about visual hallucinations which are likely related to complex withdrawal rather than Korsakoff's psychosis and Korsakoff's is a rather late manifestion of Wernicke's and more associated with confabulation and memory issues than santiago. I do not see evidence of cognitive issues on recent PCP assessments which also leads me to believe that there is still a signficant degree of withdrawal delirium/encephalopathy. Withdrawal can be prolonged in such patients and include emotional lability but on exam I feel his perceived anxiety and depression is actually pseudobulbar affect. He has hoarse intonation of voice (although smoker), dysphagia, and complaints of generalized weakness. He is also making some chewing motions of his mouth which I initially attributed to dry mouth but seem persistent (1) Wernicke encephalopathy: (2) Alcohol withdrawal: Complication of substance-induced condition: uncomplicated Qualified Code(s): F10.230 - Alcohol dependence with withdrawal, uncomplicated ENT has since evaluated patient. Attending physician updated as I do agree with MRI. He has apparently refused MRI but based on his ongoing encephalopathy I do not feel he has the capacity to understand risks/benefits/alternatives of neurologic work up. He is not combative or hallucinating at this time so I see no immediate indication for antipsychotic medications, I'd suggest benzos if needs sedation for MRI given ongoing Etoh detox Treatment for Wernicke's itself is largely supportive with thiamine and hydration. Psych History Identifying Data 66 yo male with longstanding etoh abuse admit for detox. 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 Consult clarified with Dr. Soares--team concerned his anxiety and depression may interefer with an appropriate D&A rehab placement. Chief Complaint "I do need help but also need to --my mother is 80 and needs pressure washed". History of Present Illness Patient has had a variety of medial complications since April, recent admit to [facility] for COPD exacerbation and started on detox protocol there. Returned home with mother and states he was too weak to "be of any good" to her and sought care here. He has been drinking heavily since his early teens and reports that during the pandemic he's been smoking more and "hitting up the yoni olvera again". History is limited as the patient goes in tangents and has difficult forming coherent sentences, seems to have some dysarthria/ongoing affects of medication though did not receive excessive doses of Ativan in past 24 hours. Earlier in stay he was noted to have significant ataxia and eye gaze abnormalities that reportedly have resolved. He currently denies diplopia but states he's not interested in checking his phone and actually hearing messages of encouragement upsets him. Otherwise he is frustrated with weakness but states that he's not depressed. If he had his clothes he would go home, but again, very circuitous in his explaination. He broke down crying several times during the assessment and couldn't verbalize why. He was not oriented and unable to participate in more formal memory or cognitive testing. Past Psychiatric History Previous Psych History: denies psychiatric admissions but states been to rehab 5-8 times, including "1 stint at the [facility]" History of Previous Suicide Attempt: No (denied) Past Medication Trials: denied for psychiatric reasons Allergies Allergy/AdvReac Type Severity Reaction Status Date / Time Penicillins Allergy Severe Anaphylaxis Verified 07/10/21 17:49 ciprofloxacin Allergy Intermediate hives & Verified 07/10/21 17:49 nausea strawberry Allergy Hives Verified 07/11/21 14:20 codeine AdvReac Mild Vomiting Verified 07/10/21 17:49 hydromorphone [From Dilaudid] AdvReac Mild Vomiting Verified 07/10/21 17:49 metronidazole AdvReac Mild N&V Verified 07/10/21 17:49 morphine AdvReac Mild N&V Verified 07/10/21 17:49 Tetracyclines AdvReac Mild Vomiting Verified 07/10/21 17:49 Home Medications Medication Instructions Recorded Confirmed Type albuterol sulfate 90 mcg/actuation 2 puffs INHALATION Q4H PRN #18 gm 06/13/19 07/10/21 Rx aerosol inhaler multivitamin (Multiple Vitamins) 1 tab PO QAM 06/13/19 07/10/21 History nitroglycerin 0.4 mg sublingual 0.4 mg SL Q5M PRN #25 tab 06/13/19 07/10/21 Rx tablet omega-3 acid ethyl esters 1 gram 1 cap PO DAILY cap 06/13/19 07/10/21 History capsule cetirizine 10 mg tablet 10 mg PO DAILY PRN #90 tab 07/10/19 07/10/21 Rx promethazine 12.5 mg tablet 12.5 mg PO Q6H PRN #30 tab 12/28/19 07/10/21 Rx erythromycin 5 mg/gram (0.5 %) eye 0.5 inch OPHTHALMIC (EYE) TID #1 g 12/10/20 07/10/21 Rx ointment famotidine 40 mg tablet (Pepcid) 40 mg PO QAM #90 tab 12/10/20 07/10/21 Rx rosuvastatin 40 mg tablet 40 mg PO QPM #90 tab 12/27/20 07/10/21 Rx apixaban 5 mg tablet 5 mg PO BID #60 tab 02/28/21 07/10/21 Rx fluticasone propionate 50 1 spray INTRANASAL BID #18.2 gm 04/15/21 07/10/21 Rx mcg/actuation nasal spray,suspension acyclovir 5 % topical ointment 1 applic TOPICAL .COMPLEX 7 Days 04/23/21 07/10/21 Rx #5 g albuterol sulfate 90 mcg/actuation 2 puff INHALATION Q6H PRN #8.5 g 05/19/21 07/10/21 Rx aerosol inhaler (ProAir HFA) fluticasone fur. 100 mcg-umeclid 1 inh INHALATION DAILY 05/19/21 07/10/21 History 62.5 mcg-vilant 25 mcg inhalat.powder (Trelegy Ellipta) azithromycin 500 mg tablet 500 mg PO DAILY 05/20/21 07/10/21 History chlordiazepoxide HCl 10 mg capsule 10 mg PO TID #30 cap 05/28/21 07/10/21 Rx montelukast 10 mg tablet 10 mg PO HS #90 tab 06/02/21 07/10/21 Rx pantoprazole 40 mg tablet,delayed 40 mg PO DAILY #30 tab 06/18/21 07/10/21 Rx release (Protonix) prednisone 5 mg tablet 5 mg PO QAM #30 tab 07/08/21 07/10/21 Rx amlodipine 2.5 mg tablet 2.5 mg PO DAILY 07/10/21 07/10/21 History folic acid 1 mg tablet 1 mg PO DAILY 07/10/21 07/10/21 History thiamine HCl (vitamin B1) 100 mg 100 mg PO DAILY 07/10/21 07/10/21 History tablet Family History he denied Substance Abuse History EToh use since age 14, several months 1/5 AMARI a day. Personal History Living Arrangements: Home (with mother) Beliefs That Will Affect Care: None Additional Comments: patient was not able to answer these questions other than he has grandchildren living nearby who don't know he is their grandfather. Patient History Medical History Allergic dermatitis reason for daily Prednisone Anemia Asthmatic bronchitis Cervical lymphadenopathy CHF (congestive heart failure) Cholelithiasis Chronic GERD Chronic steroid use due to unexplained hives at times, believed to be an allergy, have not been able to pin-point exact allergy Colon polyps COPD, mild Coronary artery disease involving coronary bypass graft Diverticulitis, colon Empyema lung Hereditary and idiopathic peripheral neuropathy Hiatal hernia History of foreign body in eye metal - removed with a laser Hyperlipidemia Hypertension IBS (irritable bowel syndrome) Incisional hernia Myalgia Myocardial Infarction 2007 - CABG Obstructive sleep apnea non-compliant, no machine Osteoarthrosis Pneumonia hx Pulmonary embolism reason for eliquis, July 2019. Retained ureteral stent Tobacco abuse Urticaria Surgical History H/O hemorrhoidectomy History of cardiac cath History of cataract surgery BILATERAL History of colonoscopy History of coronary artery bypass graft x3 vessels, 2007 at [place], [place]. Follows with Dr. Alexander History of cystoscopy with stent replacements History of dental surgery History of esophagogastroduodenoscopy (EGD) History of heart artery stent x2 prior to 2007. Hx of tonsillectomy S/P exploratory laparotomy with repair of left ureter, partial colon resection and incisional hernia repair with mesh. (November 2018) S/P laparotomy Nov 2017, during colon resection left ureter was connected to colon, attempted to seperate, unable and "nicked" the ureter. Placed a ureteral stent (changed periodically) Status post laparoscopic colectomy (2017) r/t diverticulitis --> turned to open laparotomy due to complications Family History Father Thyroid disease Mother Asthma Heart disease Depression Hypertension Dyslipidemia Thyroid disease Sister Heart disease Asthma Pulmonary embolism Grandfather (Maternal) Myocardial infarction Denies family history of Ovarian cancer Prostate cancer Breast cancer Lung cancer Colorectal cancer Social History Smoking Status: Current every day smoker Tobacco Type: Cigarettes packs per day: 0.5; Years Smoked: 46; Cigarettes Per Day: 10-12; Second Hand Exposure: No; Hx Alcohol Use: Yes Alcohol type: beer and hard liquor Alcohol type Comment: 1/5 bottle Yoni Olvera/day Alcohol Intake Frequency: 4 or More x per/Week Hx Substance Use: Yes Preferred Language: Hungarian Communication Ability: Unable Hearing Ability: Normal [employer]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 Beliefs That Will Affect Care: None marital status: Single Current Living Situation: Family Current Living Situation Comment: lives with 88 yr old mother current occupational status: retired How many Children do You have: 2 Feels Safe at Home: Yes Childhood Exposure to Second-Hand Smoke: No Diet Comment: regular caffeine: Yes (2 cups of tea or coffee) during the past year weight has: remained stable Dental Care, Regularly: Yes Physical Activity Frequency: Does not Exercise Seatbelt Use: never Sunscreen Use: No Assistive Devices: Walker Physical Exam Psychiatric: Orientation: oriented to person; + not oriented to place and + not oriented to time Apperance: + disheveled Eye Contact: + poor eye contact states he cannot ambulate dysarthric at times Affect: + labile affect (blunted to tearful without accompanying mood shift) Mood: + anxious mood Thought Process: + circumstantial thought process and + tangential thought process Thought Content: not paranoid and no delusions Suicidal Thoughts: denies suicidal thoughts Homicidal Thoughts: denies homicidal thoughts Hallucinations: no auditory hallucinations and no visual hallucinations Cognition: + attention not intact Insight: + poor insight Judgement: + poor judgement Vital Signs (Past 24 Hours): Last Vital Signs Temp 36.5 C 07/17/21 15:00 Pulse 80 07/17/21 15:00 Resp 20 07/17/21 15:00 BP 119/73 07/17/21 15:00 Pulse Ox 99 07/17/21 15:00 Review of Systems Unobtainable due to cognitive status Results & Data (PSY) Medications Administered Acetaminophen (Acetaminophen 325 Mg Tab) 650 mg PO Q4H PRN PRN Reason: Pain or Fever Stop: 08/09/21 22:20 Last Admin: 07/16/21 00:39 Dose: 650 mg Documented by: [id number] Admin: 07/15/21 11:25 Dose: 650 mg Documented by: [id number] Admin: 07/12/21 21:20 Dose: 650 mg Documented by: [id number] Admin: 07/12/21 09:53 Dose: 650 mg Documented by: [id number] Acyclovir (Acyclovir 5% Oint 15 Gm Tube) 1 appln EXT [id number] SHAUNA Stop: 07/20/21 22:59 Last Admin: 07/17/21 14:49 Dose: Not Given Documented by: [id number] Admin: 07/17/21 12:03 Dose: Not Given Documented by: [id number] Admin: 07/17/21 05:44 Dose: 1 appln Documented by: [id number] Admin: 07/16/21 23:31 Dose: 1 appln Documented by: [id number] Admin: 07/16/21 18:20 Dose: 1 appln Documented by: [id number] Admin: 07/16/21 15:47 Dose: 1 appln Documented by: [id number] Admin: 07/16/21 12:14 Dose: 1 appln Documented by: [id number] Admin: 07/16/21 07:37 Dose: 1 appln Documented by: [id number] Admin: 07/15/21 21:58 Dose: 1 appln Documented by: [id number] Admin: 07/15/21 19:10 Dose: 1 appln Documented by: [id number] Admin: 07/15/21 15:45 Dose: 1 appln Documented by: [id number] Admin: 07/15/21 10:49 Dose: 1 appln Documented by: [id number] Admin: 07/15/21 08:28 Dose: 1 appln Documented by: [id number] Admin: 07/14/21 23:39 Dose: 1 appln Documented by: [id number] Admin: 07/14/21 18:37 Dose: 1 appln Documented by: [id number] Admin: 07/14/21 14:19 Dose: 1 appln Documented by: [id number] Admin: 07/14/21 10:14 Dose: 1 appln Documented by: [id number] Admin: 07/14/21 07:57 Dose: 1 appln Documented by: [id number] Admin: 07/13/21 21:03 Dose: 1 appln Documented by: [id number] Admin: 07/13/21 18:17 Dose: 1 appln Documented by: [id number] Admin: 07/13/21 14:58 Dose: 1 appln Documented by: [id number] Admin: 07/13/21 10:39 Dose: 1 appln Documented by: [id number] Admin: 07/13/21 05:49 Dose: 1 appln Documented by: [id number] Admin: 07/12/21 21:21 Dose: 1 appln Documented by: [id number] Admin: 07/12/21 18:45 Dose: 1 appln Documented by: [id number] Admin: 07/12/21 15:37 Dose: 1 appln Documented by: [id number] Admin: 07/12/21 12:44 Dose: 1 appln Documented by: [id number] Admin: 07/12/21 09:04 Dose: 1 appln Documented by: [id number] Admin: 07/11/21 22:36 Dose: 1 appln Documented by: [id number] Admin: 07/11/21 18:00 Dose: Not Given Documented by: [id number] Admin: 07/11/21 16:01 Dose: 1 appln Documented by: [id number] Admin: 07/11/21 11:48 Dose: 1 appln Documented by: [id number] Admin: 07/11/21 06:19 Dose: 1 appln Documented by: [id number] Admin: 07/10/21 23:31 Dose: 1 appln Documented by: [id number] Apixaban (Apixaban 5 Mg Tablet) 5 mg PO BID SHAUNA Stop: 08/09/21 22:20 Last Admin: 07/17/21 08:50 Dose: 5 mg Documented by: [id number] Admin: 07/16/21 22:57 Dose: 5 mg Documented by: [id number] Admin: 07/16/21 07:38 Dose: 5 mg Documented by: [id number] Admin: 07/15/21 21:34 Dose: 5 mg Documented by: [id number] Admin: 07/15/21 08:29 Dose: 5 mg Documented by: [id number] Admin: 07/14/21 20:20 Dose: 5 mg Documented by: [id number] Admin: 07/14/21 07:56 Dose: 5 mg Documented by: [id number] Admin: 07/13/21 21:00 Dose: 5 mg Documented by: [id number] Admin: 07/13/21 08:19 Dose: 5 mg Documented by: [id number] Admin: 07/12/21 20:19 Dose: 5 mg Documented by: [id number] Admin: 07/12/21 08:56 Dose: 5 mg Documented by: [id number] Admin: 07/11/21 20:15 Dose: 5 mg Documented by: [id number] Admin: 07/11/21 08:13 Dose: 5 mg Documented by: [id number] Admin: 07/10/21 23:31 Dose: 5 mg Documented by: [id number] Fluticasone Furoate (Fluticasone Furoate 100mcg 14 Puffs/Inhaler) 1 puffs INH DAILY SHAUNA Stop: 08/10/21 08:59 Last Admin: 07/17/21 08:52 Dose: 1 puffs Documented by: [id number] Admin: 07/16/21 07:39 Dose: 1 puffs Documented by: [id number] Admin: 07/15/21 08:29 Dose: 1 puffs Documented by: [id number] Admin: 07/14/21 07:58 Dose: 1 puffs Documented by: [id number] Admin: 07/13/21 08:21 Dose: 1 puffs Documented by: [id number] Admin: 07/12/21 09:48 Dose: 1 puffs Documented by: [id number] Admin: 07/11/21 08:15 Dose: 1 puffs Documented by: [id number] Fluticasone Propionate (Fluticasone Propionate Na Spr 16 Gm Btl) 1 sprays NA BID SHAUNA Stop: 08/09/21 22:20 Last Admin: 07/17/21 08:51 Dose: 1 sprays Documented by: [id number] Admin: 07/16/21 23:31 Dose: Not Given Documented by: [id number] Admin: 07/16/21 07:39 Dose: 1 sprays Documented by: [id number] Admin: 07/15/21 21:33 Dose: 1 sprays Documented by: [id number] Admin: 07/15/21 08:29 Dose: 1 sprays Documented by: [id number] Admin: 07/14/21 20:21 Dose: 1 sprays Documented by: [id number] Admin: 07/14/21 07:59 Dose: 1 sprays Documented by: [id number] Admin: 07/13/21 21:02 Dose: 1 sprays Documented by: [id number] Admin: 07/13/21 08:21 Dose: 1 sprays Documented by: [id number] Admin: 07/12/21 20:19 Dose: 1 sprays Documented by: [id number] Admin: 07/12/21 08:56 Dose: 1 sprays Documented by: [id number] Admin: 07/11/21 20:16 Dose: 1 sprays Documented by: [id number] Admin: 07/11/21 08:15 Dose: 1 sprays Documented by: [id number] Admin: 07/10/21 23:30 Dose: 1 sprays Documented by: [id number] Thiamine HCl 500 mg/ Sodium (Chloride) 105 mls @ 210 mls/hr IV TID SHAUNA Stop: 08/13/21 20:59 Last Infusion: 07/17/21 14:47 Dose: 0 mls/hr Documented by: [id number] Admin: 07/17/21 14:06 Dose: 210 mls/hr Documented by: [id number] Infusion: 07/17/21 10:09 Dose: 0 mls/hr Documented by: [id number] Admin: 07/17/21 08:52 Dose: 210 mls/hr Documented by: [id number] Infusion: 07/17/21 00:02 Dose: 0 mls/hr Documented by: [id number] Admin: 07/16/21 23:26 Dose: 210 mls/hr Documented by: [id number] Infusion: 07/16/21 14:13 Dose: 0 mls/hr Documented by: [id number] Admin: 07/16/21 13:16 Dose: 210 mls/hr Documented by: [id number] Infusion: 07/16/21 11:03 Dose: 0 mls/hr Documented by: [id number] Admin: 07/16/21 09:15 Dose: 210 mls/hr Documented by: [id number] Infusion: 07/15/21 22:28 Dose: 0 mls/hr Documented by: [id number] Admin: 07/15/21 21:33 Dose: 210 mls/hr Documented by: [id number] Infusion: 07/15/21 16:16 Dose: 0 mls/hr Documented by: [id number] Admin: 07/15/21 15:45 Dose: 210 mls/hr Documented by: [id number] Infusion: 07/15/21 11:25 Dose: 0 mls/hr Documented by: [id number] Admin: 07/15/21 10:49 Dose: 210 mls/hr Documented by: [id number] Infusion: 07/14/21 20:53 Dose: 0 mls/hr Documented by: [id number] Admin: 07/14/21 20:19 Dose: 210 mls/hr Documented by: [id number] Levofloxacin/Dextrose (Levaquin/D5w) 750 mg in 150 mls @ 100 mls/hr IV Q24H SHAUNA; Protocol Stop: 07/22/21 15:59 Last Admin: 07/17/21 17:12 Dose: 100 mls/hr Documented by: [id number] Infusion: 07/16/21 18:04 Dose: 0 mls/hr Documented by: [id number] Admin: 07/16/21 16:11 Dose: 100 mls/hr Documented by: [id number] Lorazepam (Ativan) 1 mg in 2 mls @ 2 mls/min IV UD PRN; Protocol PRN Reason: EtOH Withdrawl AWSS Score 6,7 Stop: 08/15/21 21:34 Last Admin: 07/16/21 23:26 Dose: 2 mls/min Documented by: [id number] Miscellaneous (Remove Nicoderm Patch) 1 ea N/A DAILY@[id number] [facility] Stop: 08/10/21 08:58 Last Admin: 07/17/21 09:16 Dose: Not Given Documented by: [id number] Admin: 07/16/21 07:38 Dose: Not Given Documented by: [id number] Admin: 07/15/21 08:29 Dose: 1 ea Documented by: [id number] Admin: 07/14/21 08:17 Dose: Not Given Documented by: [id number] Admin: 07/13/21 09:56 Dose: Not Given Documented by: [id number] Admin: 07/12/21 09:41 Dose: Not Given Documented by: [id number] Admin: 07/11/21 08:32 Dose: Not Given Documented by: [id number] Nicotine (Nicotine 14 Mg/24 Hr Patch) 14 mg TD QAM [facility] Stop: 08/09/21 22:20 Last Admin: 07/17/21 09:16 Dose: Not Given Documented by: [id number] Admin: 07/16/21 07:42 Dose: Not Given Documented by: [id number] Admin: 07/15/21 08:29 Dose: 14 mg Documented by: [id number] Admin: 07/14/21 08:18 Dose: Not Given Documented by: [id number] Admin: 07/13/21 09:56 Dose: Not Given Documented by: [id number] Admin: 07/12/21 09:47 Dose: Not Given Documented by: [id number] Admin: 07/11/21 08:32 Dose: Not Given Documented by: [id number] Admin: 07/10/21 23:30 Dose: Not Given Documented by: [id number] Nystatin (Nystatin Susp 500,000 U/5 Ml Udc) 5 ml PO QID [facility] Stop: 07/24/21 16:59 Last Admin: 07/17/21 17:12 Dose: 5 ml Documented by: [id number] Prednisone (Prednisone 5 Mg Tab) 5 mg PO QAM [facility] Stop: 08/10/21 08:59 Last Admin: 07/17/21 08:51 Dose: 5 mg Documented by: [id number] Admin: 07/16/21 07:39 Dose: 5 mg Documented by: [id number] Admin: 07/15/21 08:29 Dose: 5 mg Documented by: [id number] Admin: 07/14/21 07:55 Dose: 5 mg Documented by: [id number] Admin: 07/13/21 08:20 Dose: 5 mg Documented by: [id number] Admin: 07/12/21 09:47 Dose: 5 mg Documented by: [id number] Admin: 07/11/21 08:17 Dose: 5 mg Documented by: [id number] Umeclidinium/Vilanterol (Umeclidinium/Vilanterol 62.5/25mcg 7 Puffs/Inhaler) 1 puffs INH DAILY SHAUNA Stop: 08/10/21 08:59 Last Admin: 07/17/21 08:51 Dose: 1 puffs Documented by: [id number] Admin: 07/16/21 07:43 Dose: 1 puffs Documented by: [id number] Admin: 07/15/21 08:29 Dose: 1 puffs Documented by: [id number] Admin: 07/14/21 07:58 Dose: 1 puffs Documented by: [id number] Admin: 07/13/21 08:21 Dose: 1 puffs Documented by: [id number] Admin: 07/12/21 08:56 Dose: 1 puffs Documented by: [id number] Admin: 07/11/21 08:17 Dose: 1 puffs Documented by: [id number] Coding Level of Care Code 58284 U Intl Hosp Care Lvl 3 Diagnoses Wernicke encephalopathy E51.2 Alcohol withdrawal F10.230 Complication of substance-induced condition: uncomplicated Time Spent (min) 65 Comment assessment of patient, complex differential, coordination with hospitalist
[2021-07-17] MEDS ORDERED: LORazepam 0.5 MG TAB PO STA (17:55)
[2021-07-17 20:13] LABS: Amphetamines+Metham, Urine Neg (Neg); Barbiturates, Urine Neg (Neg); Benzodiazepine, Urine Neg (Neg); Cocaine, Urine Neg (Neg); MDMA (Ecstacy), Urine Neg (Neg); Methadone, Urine Neg (Neg); Opiate, Urine Pos (Neg); Phencyclidine, Urine Neg (Neg)
[2021-07-17] MEDS: LORazepam 1 MG/2 ML VIAL IV PRN (21:06)
[2021-07-17] MEDS: FLUCONAZOLE 200 MG/100 ML BAG IV SCH ×2 (21:19→22:20)
[2021-07-18] MEDS: ACYCLOVIR 5% OINT 15 GM TUBE EXT SCH ×4 (06:11→18:32)
[2021-07-18 06:34] LABS: Basophils # (auto) 0.03 K/uL (0-0.2); Basophils % (auto) 0.4 %; Eosinophils # (auto) 0.24 K/uL (0-0.5); Eosinophils % (auto) 3.6 %; Hematocrit (blood only) 31.3 % (42-52); Hemoglobin 10.3 g/dL (14.0-18.0); Immature Granulocytes # (auto) 0.02 K/uL (0.00-0.02); Immature Granulocytes % (auto) 0.3 %; Lymphocytes # (auto) 0.99 K/uL (1.2-3.4); Lymphocytes % (auto) 14.8 %; Mean Corpuscular Hemoglobin 30.2 pg (25-34); Mean Corpuscular Hgb Conc 32.9 g/dL (32-36); Mean Corpuscular Volume 91.8 fL (80-100); Mean Platelet Volume 9.5 fL (7.4-10.4); Monocytes # (auto) 1.21 K/uL (0.11-0.59); Monocytes % (auto) 18.1 %; Neutrophils # (auto) 4.18 K/uL (1.4-6.5); Neutrophils % (auto) 62.8 %; Platelet Count 230 K/uL (130-400); RDW Standard Deviation 61.3 fL (36.4-46.3); Red Blood Count 3.41 M/uL (4.7-6.1); White Blood Count 6.67 K/uL (4.8-10.8)
[2021-07-18 07:02] LABS: Albumin Level 2.4 gm/dl (3.4-5.0); BUN Creatinine Ratio 11.4 (10-20); Calcium 8.3 mg/dl (8.5-10.1); Creatinine Clr Calc Pharmacy 55.2 ml/min; Est GFR (African American) 61.3 ml/min; Est GFR (Non-African American) 52.9 ml/min; Magnesium 1.5 mg/dl (1.8-2.4); Potassium 4.1 mmol/L (3.5-5.1)
[2021-07-18 07:05] LABS: Albumin Globulin Ratio 0.6 (0.9-2); Bilirubin,Total 0.4 mg/dl (0.2-1); Globulin 3.9 gm/dl (2.5-4.0); Total Protein 6.3 gm/dl (6.4-8.2)
[2021-07-18] MEDS: NICOTINE 14 MG/24 HR PATCH TD SCH (09:30)
[2021-07-18] MEDS: THIAMINE HCL 500 MG in 0.9 % SODIUM CHLORIDE 100 ML IV SCH (09:38)
[2021-07-18] MEDS: FAMOTIDINE 20 MG in SYRINGE 3 ML IV SCH ×2 (09:38→20:17)
[2021-07-18] MEDS: FLUTICASONE PROPIONATE NA SPR 16 GM BTL SCH ×2 (09:39→20:13)
[2021-07-18] MEDS: FLUCONAZOLE 200 MG/100 ML BAG IV SCH (09:39)
[2021-07-18] MEDS: UMECLIDINIUM/VILANTEROL 62.5/25MCG 7 PUFFS/INHALER INH SCH (09:39)
[2021-07-18] MEDS: FLUTICASONE FUROATE 100MCG 14 PUFFS/INHALER INH SCH (09:39)
[2021-07-18] MEDS: APIXABAN 5 MG TABLET PO SCH ×2 (09:40→20:14)
[2021-07-18] MEDS: ASPIRIN 81 MG CHEW PO SCH (09:40)
[2021-07-18] MEDS: FOLIC ACID 1 MG in SYRINGE 9.8 ML IV SCH (09:40)
[2021-07-18] MEDS: predniSONE 5 MG TAB PO SCH (09:41)
[2021-07-18] MEDS ORDERED: SODIUM PHOSPHATE 3 MMOL/1 ML INFUSION IV STA (11:24)
--- NOTE | 2021-07-18 11:31 | Hospitalist Progress Note ---
Date of Service July 18, 2021 Assessment & Plan (1) Altered mental state: Plan: Reviewing course overall appears improvedcontinue high-dose thiamine 1 more plu101 mg daily from tomorrow; should be out of withdrawalstop Ativan (2) Wernicke encephalopathy: Plan: Improvement in diplopia fits this diagnosis. B1 level taken after Banana bag given in ER therefore not school admissions representative Unfortunately suspect some degree of Kors[place]offs in addition since hallucinations appear to be continuing IV thiamine 500mg TID for 3 days (last day 07/17) 93: Switch to 250 mg daily; B1 level still pending though above-noted (3) Aspiration pneumonia: Plan: Not convincing per my review; noted on Levaquinstop after 5-day; incentive spirometry (4) Orthostatic hypotension: Plan: Likely combination of deconditioning and alcoholic neuropathy possiblydoes not need antihypertensives in any case (5) Ambulatory dysfunction: Plan: At present PT/OT; noted history of bladder and bowel incontinence-none now; MRI lumbar spine noncontributory MRI brain might be more valuable; could have alcoholic dementia as a component Though not decisional and does not understand risk benefits continues to do sent for MRI braindifficult to do if he does not keep still and assent (cannot be completely knocked out for same); I held off for now- will reevaluate (6) Electrolyte abnormality: Plan: Replace Mg, K and PO as needed Repeat daily levels until stable. (7) Alcohol withdrawal: Plan: Should be beyond faceup withdrawalstop Ativan and observe (8) Afib: Plan: diagnosed in 2019 and converted in house on sotalol- remains in NSR - He is on Apixaban for his history of PE - No rate controlling agents at this time - history of sick sinus syndrome (9) CAD (coronary artery disease): Plan: Continue chewable aspirin; statin on hold while n.p.o. as much as possible (10) Hypertension: Plan: Blood pressure goodfollow-up without amlodipine (11) CKD (chronic kidney disease), stage III: Plan: Renal function stable to betterfollow; noted proteinuriacan follow (12) COPD, mild: Plan: No evidence of exacerbationfollow clinically and albuterol as needed (13) Obstructive sleep apnea: Plan: Intolerant to CPAP (14) Cold sore: Plan: Continue his acyclovir as needed (15) Hyperlipidemia: Plan: Held statin while n.p.o. as much as possible; lipid panel (16) Allergic dermatitis: Plan: Continue prednisone 5mg daily - unclear history regarding this (?hives), recommend dermatology follow up (17) Tremor: Plan: Chronic with his alcohol May confound his AWWS follow total symptomatology. (18) Acute renal failure: Plan: Resolved. Monitor off IV fluids. Will continue to monitor. (19) Oropharyngeal dysphagia: Plan: ENT and GI input noted and appreciated; on fluconazole; pured diet initiatedobserve how he does and advance as tolerated Enteral tube feeding will be highly challenging (20) Laryngeal candidiasis: Plan: Oral thrush, may have esophageal candidiasison fluconazole; could be cont ributing to poor oral solute intake Admission and Anticipated Discharge Date Admission Date: July 10, 2021 Subjective Original presentation: "66 YOM with past medical history of: CAD, HTN, HLD, Afib(on apixaban), CABG, ETOH abuse, ETOH withdraw, GERD, COPD, allergic rhinitis, DVT/PE, LITA, active smoker, anxiety. Patient comes to the EMD today as he wishes to stop drinking alcohol, he reports that he has been drinking since he was 14 years old. Mainly drinks beer and liquor. Reports no other drugs and hasn't used any since "many many years ago". He has been trying to cut his drinking down, and only drinks enough to take away his tremors. He has been having some vomiting today, he has quit before but reports he re-lapsed x2. He does not remember ever having a seizure of delirium tremors. He reports his last drink as this morning and his ETOH level is 234 on admisison. Patient was recently discharged from [facility] for a COPD exacerbation and placed on AZT M,W,F schedule. Patient was already started on Gabapentin and Ativan protocol in the EMD. Patient will be admitted for continued treatment and support of his ETOH withdraw he would be high risk for DTs based off his history. Patient had a CABGx3 in 2007 (GOMEZ-LAD, SVG to ramus and RCA). In march he had a stress test that was abnormal, he then had a cardiac cath on 04/16/21. This revealed that the saphenous vein grafts which were reported cannot be cannulated and were not found on aortography and are assumed closed. The CHANTAL graft to the LAD is atretic and nonfunctional distally. The LAD, left circumflex and ramus arteries have nonobstructive disease and are patent. The nondominant right coronary artery is patent. He is continued on medical management. He has also been on prednisone for the past 3-4 months for what he reports as a bump on his chin that will not go away and he has been continually picking at. He has received his COVID vaccine and his test on admission is NEGATIVE." 93: No complaints; denies incontinence During the course of observation yesterday through today noted fluctuation in mental state . Physical Exam Physical Exam: Constitutional and general: No acute distress as such though looks chronically unwell, looks biologic age Head and face: No puffiness, atraumatic Eyes: No scleral icterus, extraocular movements normal Neck: Supple, no JVD Musculoskeletal: No acute joint swelling, no bony abnormalities Skin/dermatologic/integument: No rash, no purpura Hematologic and lymphatic: pallor +, no petechia Gastrointestinal/abdomen: Nondistended, soft, nonacute Neurologic: Cranial nerves intact, nonfocal; tremulous Psychiatry: Awake, alert, communicative Cardiovascular: Heart rhythm regular, no rub, no significant murmur, no gallop Respiratory: Chest movements equal, no use of accessory muscles, no adventitious sounds Extremities: No edema, no cyanosis Oral thrush Results & Data Results & Data ([facility]) Vital Signs (Past 12 Hours) Vital Signs Temp Pulse Pulse Resp BP Pulse Ox 07/18/21 07:57 36.6 C 86 20 126/73 95 07/18/21 07:39 87 07/18/21 00:07 86 Laboratory Results Laboratory Results - last 24 hr 07/17/21 07/17/21 07/17/21 06:13 Unknown Unknown WBC RBC Hgb Hct MCV MCH MCHC RDW Std Deviation RDW Coeff of Ad Plt Count MPV Immature Gran % (Auto) Neut % (Auto) Lymph % (Auto) Howell % (Auto) Eos % (Auto) Baso % (Auto) Neut # (Auto) Lymph # (Auto) Howell # (Auto) Eos # (Auto) Baso # (Auto) Immature Gran # (Auto) Sodium Potassium Chloride Carbon Dioxide Anion Gap BUN Creatinine Est Cr Clr Drug Dosing Est GFR ( Amer) Est GFR (Non-Af Amer) BUN/Creatinine Ratio Glucose Calcium Phosphorus Magnesium Total Bilirubin AST ALT Alkaline Phosphatase Total Protein Albumin Globulin Albumin/Globulin Ratio Triglycerides 109 Cholesterol 109 LDL Cholesterol, Calc 46 VLDL Cholesterol, Calc 22 HDL Cholesterol 41 Cholesterol/HDL Ratio 3 Urine Opiates Screen Pos H U Codeine Confrm GC/MS Pending Ur Morphine (GC/MS) Pending Ur Hydrocodone (GC/MS) Pending Ur Norhydrocodone Pending Ur Noroxycodone Pending Urine Oxycodone (GC/MS) Pending U Oxymorphone GC/MS Pending Ur Methadone, Qual Neg Ur Hydromorphone (GC/MS) Pending Urine Barbiturates Neg Ur Phencyclidine (PCP) Neg U Amphetamin/Meth Scrn Neg MDMA (Ecstasy) Screen Neg U Benzodiazepines Scrn Neg Ur Cocaine Metabolite Neg U Marijuana (THC) Screen Neg Drug Screen Comment Pending 07/18/21 07/18/21 05:50 05:50 WBC 6.67 RBC 3.41 L Hgb 10.3 L Hct 31.3 L MCV 91.8 MCH 30.2 MCHC 32.9 RDW Std Deviation 61.3 H RDW Coeff of Ad 18.0 H Plt Count 230 MPV 9.5 Immature Gran % (Auto) 0.3 Neut % (Auto) 62.8 Lymph % (Auto) 14.8 Howell % (Auto) 18.1 Eos % (Auto) 3.6 Baso % (Auto) 0.4 Neut # (Auto) 4.18 Lymph # (Auto) 0.99 L Howell # (Auto) 1.21 H Eos # (Auto) 0.24 Baso # (Auto) 0.03 Immature Gran # (Auto) 0.02 Sodium 140 Potassium 4.1 Chloride 113 H Carbon Dioxide 21 Anion Gap 6.0 BUN 16 Creatinine 1.38 Est Cr Clr Drug Dosing 55.2 Est GFR ( Amer) 61.3 Est GFR (Non-Af Amer) 52.9 BUN/Creatinine Ratio 11.4 Glucose 69 L Calcium 8.3 L Phosphorus 2.0 L Magnesium 1.5 L Total Bilirubin 0.4 AST 32 ALT 27 Alkaline Phosphatase 61 Total Protein 6.3 L Albumin 2.4 L Globulin 3.9 Albumin/Globulin Ratio 0.6 L Triglycerides Cholesterol LDL Cholesterol, Calc VLDL Cholesterol, Calc HDL Cholesterol Cholesterol/HDL Ratio Urine Opiates Screen U Codeine Confrm GC/MS Ur Morphine (GC/MS) Ur Hydrocodone (GC/MS) Ur Norhydrocodone Ur Noroxycodone Urine Oxycodone (GC/MS) U Oxymorphone GC/MS Ur Methadone, Qual Ur Hydromorphone (GC/MS) Urine Barbiturates Ur Phencyclidine (PCP) U Amphetamin/Meth Scrn MDMA (Ecstasy) Screen U Benzodiazepines Scrn Ur Cocaine Metabolite U Marijuana (THC) Screen Drug Screen Comment PG Care Time/CCT Total # of Minutes Spent Total Time Spent with Patient: Total time spent is greater than 50% in coordination of care (as documented) at patient's floor/unit and/or counseling patient: Coding Level of Care Code 24494 Subseq Hosp Care Lvl 3 Diagnoses Altered mental state R41.82 Wernicke encephalopathy E51.2 Aspiration pneumonia J69.0 Orthostatic hypotension I95.1 Ambulatory dysfunction R26.2 Electrolyte abnormality E87.8 Alcohol withdrawal F10.230 Complication of substance-induced condition: uncomplicated Afib I48.91 CAD (coronary artery disease) I25.10 Hypertension I10 CKD (chronic kidney disease), stage III N18.3 COPD, mild J44.9 Obstructive sleep apnea G47.33 Cold sore B00.1 Hyperlipidemia E78.5 Allergic dermatitis L23.9 Tremor R25.1 Acute renal failure N17.9 Oropharyngeal dysphagia R13.12 Laryngeal candidiasis B37.89 (1) Alcohol withdrawal Complication of substance-induced condition: uncomplicated Qualified Code(s): F10.230 - Alcohol dependence with withdrawal, uncomplicated
[2021-07-18] MEDS ORDERED: SODIUM PHOSPHATE 15 MMOL in SODIUM CHLORIDE 0.9% 250 ML IV ONE (11:45)
[2021-07-18] MEDS: MAGNESIUM SULFATE / D5W 1 GM/100 ML BAG IV SCH ×3 (11:54→16:15)
[2021-07-18] MEDS: PANTOprazole 40 MG in SYRINGE 0 ML IV SCH (11:55)
--- NOTE | 2021-07-18 15:54 | Communication Note ---
Date of Service: July 18, [address] Malone to assume primary clinical responsibility for consult service today at 5 pm. Patient continues with AMS, told liaison the dynamap machine was a baby. Possible surreptitious drug use and now positive for opiates. Reportedly still refusing MRI today.
[2021-07-18] MEDS: levoFLOXacin/D5W 750 MG/150 ML BAG IV SCH (17:27)
[2021-07-18 18:39] LABS: Amphetamines+Metham, Urine Neg (Neg); Barbiturates, Urine Neg (Neg); Benzodiazepine, Urine Neg (Neg); Cocaine, Urine Neg (Neg); MDMA (Ecstacy), Urine Neg (Neg); Methadone, Urine Neg (Neg); Opiate, Urine Neg (Neg); Phencyclidine, Urine Neg (Neg)
[2021-07-18] MEDS: ACETAMINOPHEN 325 MG TAB PO PRN (20:30)
[2021-07-19] MEDS: ACYCLOVIR 5% OINT 15 GM TUBE EXT SCH ×6 (00:04→20:21)
[2021-07-19 07:13] LABS: Basophils # (auto) 0.03 K/uL (0-0.2); Basophils % (auto) 0.4 %; Eosinophils # (auto) 0.27 K/uL (0-0.5); Eosinophils % (auto) 3.4 %; Hemoglobin 10.6 g/dL (14.0-18.0); Immature Granulocytes # (auto) 0.04 K/uL (0.00-0.02); Immature Granulocytes % (auto) 0.5 %; Lymphocytes # (auto) 1.27 K/uL (1.2-3.4); Lymphocytes % (auto) 16.1 %; Mean Corpuscular Hemoglobin 29.8 pg (25-34); Mean Corpuscular Hgb Conc 33.1 g/dL (32-36); Mean Corpuscular Volume 89.9 fL (80-100); Mean Platelet Volume 9.7 fL (7.4-10.4); Monocytes # (auto) 1.29 K/uL (0.11-0.59); Monocytes % (auto) 16.4 %; Neutrophils # (auto) 4.98 K/uL (1.4-6.5); Neutrophils % (auto) 63.2 %; Platelet Count 271 K/uL (130-400); RDW Coefficient of Variation 17.6 % (11.5-14.5); Red Blood Count 3.56 M/uL (4.7-6.1); White Blood Count 7.88 K/uL (4.8-10.8)
[2021-07-19 07:33] LABS: Albumin Level 2.4 gm/dl (3.4-5.0); Calcium 8.7 mg/dl (8.5-10.1); Creatinine Clr Calc Pharmacy 55.6 ml/min; Est GFR (African American) 62.4 ml/min; Est GFR (Non-African American) 53.8 ml/min; Magnesium 2.1 mg/dl (1.8-2.4); Potassium 3.9 mmol/L (3.5-5.1)
[2021-07-19 07:35] LABS: Albumin Globulin Ratio 0.7 (0.9-2); Bilirubin,Total 0.3 mg/dl (0.2-1); Globulin 3.6 gm/dl (2.5-4.0); Phosphorus 2.5 mg/dl (2.5-4.9)
[2021-07-19] MEDS: FLUTICASONE FUROATE 100MCG 14 PUFFS/INHALER INH SCH (07:45)
[2021-07-19] MEDS: FLUTICASONE PROPIONATE NA SPR 16 GM BTL SCH ×2 (07:46→20:20)
[2021-07-19] MEDS: predniSONE 5 MG TAB PO SCH (07:47)
[2021-07-19] MEDS: APIXABAN 5 MG TABLET PO SCH ×2 (07:47→20:19)
[2021-07-19] MEDS: ASPIRIN 81 MG CHEW PO SCH (07:47)
[2021-07-19] MEDS: NICOTINE 14 MG/24 HR PATCH TD SCH (07:47)
[2021-07-19] MEDS: FLUCONAZOLE 200 MG/100 ML BAG IV SCH (07:48)
[2021-07-19] MEDS: FOLIC ACID 1 MG in SYRINGE 9.8 ML IV SCH (07:48)
[2021-07-19] MEDS: FAMOTIDINE 20 MG in SYRINGE 3 ML IV SCH ×2 (07:48→20:25)
[2021-07-19] MEDS: UMECLIDINIUM/VILANTEROL 62.5/25MCG 7 PUFFS/INHALER INH SCH (07:49)
[2021-07-19] MEDS: THIAMINE HCL 250 MG in SODIUM CHLORIDE 0.9% 50 ML IV SCH (07:49)
--- NOTE | 2021-07-19 11:01 | Hospitalist Progress Note ---
Date of Service July 19, 2021 Assessment & Plan (1) Altered mental state: Plan: Reviewing course overall appears improvedclearly combination of alcohol withdrawal with probable Wernicke's- continue 250 mg thiamine for 4 more days from tomorrow, then switch to 100 mg daily; has been emotionally labile and psychiatry raised the question of pseudobulbar palsy MRI brain has been ordered for 2 days but he continues to not assent -does not have capacity according to psychiatry but difficult to do kicking and screaming and unlikely that he can be sedated enough-talked to family, they are also trying; will keep trying to coax him into assent (2) Wernicke encephalopathy: Plan: Improvement in diplopia fits this diagnosis. B1 level taken after Banana bag given in ER therefore not community health representative 93: Switch to B1 250 mg daily; B1 level still pending though above-noted 9-4: 250 mg thiamine 4 more days including today; then 100 mg daily will have to be ordered (3) Oropharyngeal dysphagia: Plan: ENT and GI input noted and appreciated; on fluconazole for laryngeal, oral, and possibly esophageal candidiasis that might be contributing; pured diet initiated and seems to be tolerating advance as suggested by speech therapy Enteral tube feeding will be highly challenging; Note at one point speech therapy had recommended n.p.o. Currently nonessential p.o. meds have been stopped while diet has been advanced and what can be switched to IV has been done-once he is clear he is tolerating p.o. intake will have to reintroduce p.o. meds (4) Aspiration pneumonia: Plan: Not convincing per my review; noted on Levaquinstop after 5-day; incentive spirometry (5) Orthostatic hypotension: Plan: Likely combination of deconditioning and alcoholic neuropathy possiblydoes not need antihypertensives in any case (6) Ambulatory dysfunction: Plan: At present PT/OT; noted history of bladder and bowel incontinence-none now; MRI lumbar spine noncontributory MRI brain might be more valuable; could have alcoholic dementia as a component Though not decisional and does not understand risk benefits continues to consent for MRI braindifficult to do if he does not keep still and assent (cannot be completely knocked out for same); see above (7) Electrolyte abnormality: Plan: Replace Mg, K and PO as needed Repeat daily levels until stable. (8) Alcohol withdrawal: Plan: Should be beyond phase of withdrawalstopped Ativan -observe (9) Afib: Plan: diagnosed in 2019 and converted in house on sotalol- remains in NSR - He is on Apixaban for his history of PE - No rate controlling agents at this time - history of sick sinus syndrome (10) CAD (coronary artery disease): Plan: Continue chewable aspirin; statin on hold while n.p.o. as much as possible (11) Hypertension: Plan: Blood pressure goodfollow without amlodipine (12) CKD (chronic kidney disease), stage III: Plan: Renal function stablefollow; noted proteinuriacan follow (13) COPD, mild: Plan: No evidence of exacerbationfollow clinically and albuterol as needed (14) Obstructive sleep apnea: Plan: Intolerant to CPAP (15) Cold sore: Plan: Continue his acyclovir as needed (16) Hyperlipidemia: Plan: Held statin while n.p.o. as much as possible; LDL 46 though was on statin (17) Allergic dermatitis: Plan: Continue prednisone 5mg daily - unclear history regarding this (?hives), recommend dermatology follow up (18) Tremor: Plan: Chronic with his alcohol May confound his AWWS follow total symptomatology. (19) Laryngeal candidiasis: Plan: Along with oral thrush and possibly esophageal candidiasisnoted above, on fluconazole; at present 10 days duration planned; could be contributing to poor oral solute intake Plan: Note had some syringe with clear liquid found under his bed 2 days ago; unclear what it contained and how it got there; repeat UDS was positive for opiate that were negative on admission, specific testing pending; per discussion with pharmacy has not received any opiate during the hospitalization but quinolones can cause false positive; repeat opiates negativetherefore, overall significance uncertain Admission and Anticipated Discharge Date Admission Date: July 10, 2021 Subjective Original presentation: "66 YOM with past medical history of: CAD, HTN, HLD, Afib(on apixaban), CABG, ETOH abuse, ETOH withdraw, GERD, COPD, allergic rhinitis, DVT/PE, LITA, active smoker, anxiety. Patient comes to the EMD today as he wishes to stop drinking alcohol, he reports that he has been drinking since he was 14 years old. Mainly drinks beer and liquor. Reports no other drugs and hasn't used any since "many many years ago". He has been trying to cut his drinking down, and only drinks enough to take away his tremors. He has been having some vomiting today, he has quit before but reports he re-lapsed x2. He does not remember ever having a seizure of delirium tremors. He reports his last drink as this morning and his ETOH level is 234 on admisison. Patient was recently discharged from [facility] for a COPD exacerbation and placed on AZT M,W,F schedule. Patient was already started on Gabapentin and Ativan protocol in the EMD. Patient will be admitted for continued treatment and support of his ETOH withdraw he would be high risk for DTs based off his history. Patient had a CABGx3 in 2007 (GOMEZ-LAD, SVG to ramus and RCA). In march he had a stress test that was abnormal, he then had a cardiac cath on 04/16/21. This revealed that the saphenous vein grafts which were reported cannot be cannulated and were not found on aortography and are assumed closed. The CHANTAL graft to the LAD is atretic and nonfunctional distally. The LAD, left circumflex and ramus arteries have nonobstructive disease and are patent. The nondominant right coronary artery is patent. He is continued on medical management. He has also been on prednisone for the past 3-4 months for what he reports as a bump on his chin that will not go away and he has been continually picking at. He has received his COVID vaccine and his test on admission is NEGATIVE." 93: No complaints; denies incontinence During the course of observation yesterday through today noted fluctuation in mental state 9-4: No complaints as such; tolerating diet . Physical Exam Physical Exam: Constitutional and general: No acute distress as such though looks chronically unwell, looks biologic age Head and face: No puffiness, atraumatic Eyes: No scleral icterus, extraocular movements normal Neck: Supple, no JVD Musculoskeletal: No acute joint swelling, no bony abnormalities Skin/dermatologic/integument: No rash, no purpura Hematologic and lymphatic: pallor +, no petechia Gastrointestinal/abdomen: Nondistended, soft, nonacute Neurologic: Cranial nerves intact, nonfocal; tremulous Psychiatry: Awake, alert, communicative Cardiovascular: Heart rhythm regular, no rub, no significant murmur, no gallop Respiratory: Chest movements equal, no use of accessory muscles, no adventitious sounds Extremities: No edema, no cyanosis Oral thrush Results & Data Results & Data ([facility]) Vital Signs (Past 12 Hours) Vital Signs Temp Pulse Pulse Resp BP Pulse Ox 07/19/21 07:38 36.5 C 78 20 114/73 95 07/19/21 07:32 76 07/19/21 04:44 73 07/19/21 03:20 36.8 C 84 16 106/57 L 96 Laboratory Results Laboratory Results - last 24 hr 07/18/21 07/19/21 07/19/21 18:02 07:02 07:02 WBC 7.88 RBC 3.56 L Hgb 10.6 L Hct 32.0 L MCV 89.9 MCH 29.8 MCHC 33.1 RDW Std Deviation 58.0 H RDW Coeff of Ad 17.6 H Plt Count 271 MPV 9.7 Immature Gran % (Auto) 0.5 Neut % (Auto) 63.2 Lymph % (Auto) 16.1 Garden % (Auto) 16.4 Eos % (Auto) 3.4 Baso % (Auto) 0.4 Neut # (Auto) 4.98 Lymph # (Auto) 1.27 Garden # (Auto) 1.29 H Eos # (Auto) 0.27 Baso # (Auto) 0.03 Immature Gran # (Auto) 0.04 H Sodium 141 Potassium 3.9 Chloride 113 H Carbon Dioxide 23 Anion Gap 5.0 BUN 15 Creatinine 1.36 Est Cr Clr Drug Dosing 55.6 Est GFR ( Amer) 62.4 Est GFR (Non-Af Amer) 53.8 BUN/Creatinine Ratio 11.0 Glucose 95 Calcium 8.7 Phosphorus 2.5 Magnesium 2.1 Total Bilirubin 0.3 AST 34 ALT 30 Alkaline Phosphatase 64 Total Protein 6.0 L Albumin 2.4 L Globulin 3.6 Albumin/Globulin Ratio 0.7 L Urine Opiates Screen Neg Ur Methadone, Qual Neg Urine Barbiturates Neg Ur Phencyclidine (PCP) Neg U Amphetamin/Meth Scrn Neg MDMA (Ecstasy) Screen Neg U Benzodiazepines Scrn Neg Ur Cocaine Metabolite Neg U Marijuana (THC) Screen Neg PG Care Time/CCT Total # of Minutes Spent Total Time Spent with Patient: Total time spent is greater than 50% in coordination of care (as documented) at patient's floor/unit and/or counseling p atient: Coding Level of Care Code 22436 Subseq Hosp Care Lvl 3 Diagnoses Altered mental state R41.82 Wernicke encephalopathy E51.2 Aspiration pneumonia J69.0 Orthostatic hypotension I95.1 Ambulatory dysfunction R26.2 Electrolyte abnormality E87.8 Alcohol withdrawal F10.230 Complication of substance-induced condition: uncomplicated Afib I48.91 CAD (coronary artery disease) I25.10 Hypertension I10 CKD (chronic kidney disease), stage III N18.3 COPD, mild J44.9 Obstructive sleep apnea G47.33 Cold sore B00.1 Hyperlipidemia E78.5 Allergic dermatitis L23.9 Tremor R25.1 Oropharyngeal dysphagia R13.12 Laryngeal candidiasis B37.89 (1) Alcohol withdrawal Complication of substance-induced condition: uncomplicated Qualified Code(s): F10.230 - Alcohol dependence with withdrawal, uncomplicated
[2021-07-19] MEDS: PANTOprazole 40 MG in SYRINGE 0 ML IV SCH (11:53)
[2021-07-19] MEDS: ACETAMINOPHEN 325 MG TAB PO PRN (13:01)
[2021-07-19] MEDS: levoFLOXacin/D5W 750 MG/150 ML BAG IV SCH (15:37)
[2021-07-19] MEDS: MELATONIN 3 MG TAB PO SCH (21:54)
[2021-07-19] MEDS ORDERED: ONDANSETRON INJ 2 MG/ML 2 ML VIAL IV PRN (22:24)
[2021-07-20] MEDS: traZODone HCL 50 MG TAB PO PRN ×2 (00:22→21:06)
[2021-07-20] MEDS: ACYCLOVIR 5% OINT 15 GM TUBE EXT SCH ×4 (06:17→18:10)
[2021-07-20 06:49] LABS: Basophils # (auto) 0.03 K/uL (0-0.2); Basophils % (auto) 0.4 %; Eosinophils # (auto) 0.23 K/uL (0-0.5); Eosinophils % (auto) 2.7 %; Hematocrit (blood only) 31.3 % (42-52); Hemoglobin 10.3 g/dL (14.0-18.0); Immature Granulocytes # (auto) 0.03 K/uL (0.00-0.02); Immature Granulocytes % (auto) 0.4 %; Lymphocytes # (auto) 1.68 K/uL (1.2-3.4); Lymphocytes % (auto) 19.9 %; Mean Corpuscular Hemoglobin 30.1 pg (25-34); Mean Corpuscular Hgb Conc 32.9 g/dL (32-36); Mean Corpuscular Volume 91.5 fL (80-100); Mean Platelet Volume 9.9 fL (7.4-10.4); Monocytes # (auto) 1.18 K/uL (0.11-0.59); Neutrophils # (auto) 5.29 K/uL (1.4-6.5); Neutrophils % (auto) 62.6 %; Platelet Count 291 K/uL (130-400); RDW Coefficient of Variation 17.9 % (11.5-14.5); RDW Standard Deviation 59.8 fL (36.4-46.3); Red Blood Count 3.42 M/uL (4.7-6.1); White Blood Count 8.44 K/uL (4.8-10.8)
[2021-07-20 07:05] LABS: Albumin Level 2.5 gm/dl (3.4-5.0); Calcium 9.5 mg/dl (8.5-10.1); Creatinine Clr Calc Pharmacy 53.2 ml/min; Est GFR (African American) 60.8 ml/min; Est GFR (Non-African American) 52.4 ml/min; Magnesium 1.4 mg/dl (1.8-2.4); Potassium 3.8 mmol/L (3.5-5.1)
[2021-07-20 07:09] LABS: Albumin Globulin Ratio 0.7 (0.9-2); Bilirubin,Total 0.3 mg/dl (0.2-1); Globulin 3.7 gm/dl (2.5-4.0); Phosphorus 3.4 mg/dl (2.5-4.9); Total Protein 6.2 gm/dl (6.4-8.2)
[2021-07-20] MEDS: APIXABAN 5 MG TABLET PO SCH ×2 (09:06→21:04)
[2021-07-20] MEDS: FAMOTIDINE 20 MG in SYRINGE 3 ML IV SCH (09:07)
[2021-07-20] MEDS: ASPIRIN 81 MG CHEW PO SCH (09:07)
[2021-07-20] MEDS: FLUCONAZOLE 200 MG/100 ML BAG IV SCH (09:07)
[2021-07-20] MEDS: FLUTICASONE PROPIONATE NA SPR 16 GM BTL SCH ×2 (09:07→21:05)
[2021-07-20] MEDS: FLUTICASONE FUROATE 100MCG 14 PUFFS/INHALER INH SCH (09:08)
[2021-07-20] MEDS: FOLIC ACID 1 MG in SYRINGE 9.8 ML IV SCH (09:08)
[2021-07-20] MEDS: NICOTINE 14 MG/24 HR PATCH TD SCH (09:08)
[2021-07-20] MEDS: predniSONE 5 MG TAB PO SCH (09:09)
[2021-07-20] MEDS: THIAMINE HCL 250 MG in SODIUM CHLORIDE 0.9% 50 ML IV SCH (09:09)
[2021-07-20] MEDS: UMECLIDINIUM/VILANTEROL 62.5/25MCG 7 PUFFS/INHALER INH SCH (09:10)
[2021-07-20] MEDS: PANTOprazole 40 MG in SYRINGE 0 ML IV SCH (10:22)
[2021-07-20] MEDS: MAGNESIUM SULFATE / D5W 1 GM/100 ML BAG IV SCH ×3 (10:23→14:33)
[2021-07-20] MEDS: LORazepam 1 MG TAB PO PRN ×2 (12:31→20:22)
[2021-07-20 14:35] LABS: Codeine Urine NEGATIVE ng/mL (<50); Hydrocodone Urine NEGATIVE ng/mL (<50); Hydromor Urine NEGATIVE ng/mL (<50); Morphine Urine NEGATIVE ng/mL (<50); Norhydrocodone Conf Ur NEGATIVE ng/mL (<50); Noroxycodone Urine NEGATIVE ng/mL (<50); Oxycodone Urine NEGATIVE ng/mL (<50); Oxymorph Urine NEGATIVE ng/mL (<50)
--- NOTE | 2021-07-20 17:22 | Hospitalist Progress Note ---
Date of Service July 20, 2021 Assessment & Plan (1) Alcohol withdrawal: Plan: appears nearly resolved he is 10 days into his hospitalization cont supportive care (2) Metabolic encephalopathy: Plan: 2nd to #1, #3, other etiologies?? appears resolved mental status is relatively normal today cont monitoring (3) Wernicke encephalopathy: Plan: cont high dose thiamine 250mg daily x 3 days then 100mg daily thereafter. by report had had diplopia - now resolved. EOMI on exam today. If he had Wenicke's it is improved. (4) Oropharyngeal dysphagia: Plan: ENT, GI, and speech therapy appreciated. Cont fluconazole for thrush and laryngeal candidiasis. Tolerating pureed diet. Need for EGD?? Recent laryngoscopy without any mass/tumor. Could consider upper GI series/barium swallow. (5) Aspiration pneumonia: Plan: s/p 5-day run of levaquin - now off antibiotics. (6) Orthostatic hypotension: Plan: no issues at this time (7) Ambulatory dysfunction: Plan: Exact etiology uncertain. Severe deconditioning?? L-spine MRI without any lesion to account for ambulatory issues. Patient is agreeable to MRI brain if he can listen to country music and have pre-medication. (8) Afib: Plan: Diagnosed in 2019 and concerted to NSR following sotalol load. Remains on eliquis BID. Not on AV latonia agents. Tele stable overnight. 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 (17) Tremor: Plan: benign essential tremor?? 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 of music because of previous rock concerts earlier in life he also wants pre-medication prior to MRI has had dysphagia since spring 2019 has not improved nor really worsened - it has simply persisted he is not interested in inpatient drug/etoh rehab at this time Review of Systems Review of Systems: gen - no fevers/chills; +fatigue CV - no chest pain Pulm - c/o dyspnea with minimal cough GI - no abd pain psych - anxiety present Physical Exam Physical Exam: gen - NAD, looks good ENT - no thrush plaques, MMM Eyes - EOMI, no nystagmus or palsy neck - no JVD heart - RRR, s1 s2, no murmur lungs - CTA b/l abd - soft, NT, ND, BS+, no HSM ext - no edema, pulses 2+ b/l neuro - minimal tremor b/l arms/hands Results & Data Results & [facility] ([facility]) Vital Signs (Past 12 Hours) Vital Signs Temp Pulse Pulse Resp BP Pulse Ox 07/20/21 15:27 77 07/20/21 14:46 36.8 C 91 H 20 132/80 95 07/20/21 11:27 36.9 C 73 20 122/77 95 07/20/21 07:43 65 07/20/21 07:29 36.6 C 77 18 116/69 95 Laboratory Results Laboratory Results - last 24 hr 07/17/21 07/20/21 07/20/21 Unknown 06:25 06:25 WBC 8.44 RBC 3.42 L Hgb 10.3 L Hct 31.3 L MCV 91.5 MCH 30.1 MCHC 32.9 RDW Std Deviation 59.8 H RDW Coeff of Ad 17.9 H Plt Count 291 MPV 9.9 Immature Gran % (Auto) 0.4 Neut % (Auto) 62.6 Lymph % (Auto) 19.9 Crenshaw % (Auto) 14.0 Eos % (Auto) 2.7 Baso % (Auto) 0.4 Neut # (Auto) 5.29 Lymph # (Auto) 1.68 Crenshaw # (Auto) 1.18 H Eos # (Auto) 0.23 Baso # (Auto) 0.03 Immature Gran # (Auto) 0.03 H Sodium 139 Potassium 3.8 Chloride 108 H Carbon Dioxide 23 Anion Gap 8.0 BUN 14 Creatinine 1.39 Est Cr Clr Drug Dosing 53.2 Est GFR ( Amer) 60.8 Est GFR (Non-Af Amer) 52.4 BUN/Creatinine Ratio 10.0 Glucose 98 Calcium 9.5 Phosphorus 3.4 Magnesium 1.4 L Total Bilirubin 0.3 AST 30 ALT 27 Alkaline Phosphatase 57 Total Protein 6.2 L Albumin 2.5 L Globulin 3.7 Albumin/Globulin Ratio 0.7 L U Codeine Confrm GC/MS NEGATIVE Ur Morphine (GC/MS) NEGATIVE Ur Hydrocodone (GC/MS) NEGATIVE Ur Norhydrocodone NEGATIVE Ur Noroxycodone NEGATIVE Urine Oxycodone (GC/MS) NEGATIVE U Oxymorphone GC/MS NEGATIVE Ur Hydromorphone (GC/MS) NEGATIVE Drug Screen Comment SEE NOTE PG Care Time/CCT Total # of Minutes Spent Total Time Spent with Patient: Total time spent is greater than 50% in coordination of care (as documented) at patient's floor/unit and/or counseling patient: Coding Level of Care Code 21447 Subseq Hosp Care Lvl 3 Diagnoses Wernicke encephalopathy E51.2 Oropharyngeal dysphagia R13.12 Aspiration pneumonia J69.0 Orthostatic hypotension I95.1 Ambulatory dysfunction R26.2 Afib I48.91 CAD (coronary artery disease) I25.10 Hypertension I10 CKD (chronic kidney disease), stage III N18.3 COPD, mild J44.9 Obstructive sleep apnea G47.33 Cold sore B00.1 Hyperlipidemia E78.5 Allergic dermatitis L23.9 Tremor R25.1 Laryngeal candidiasis B37.89 Alcohol withdrawal F10.239 Metabolic encephalopathy G93.41 DVT prophylaxis Z29.9
[2021-07-20] MEDS: ROSUVASTATIN CALCIUM 20 MG TAB PO SCH (21:05)
[2021-07-20] MEDS: MELATONIN 3 MG TAB PO SCH (21:05)
[2021-07-21 07:29] LABS: BUN Creatinine Ratio 9.4 (10-20); Calcium 9.4 mg/dl (8.5-10.1); Creatinine Clr Calc Pharmacy 51.2 ml/min; Est GFR (African American) 59.2 ml/min; Est GFR (Non-African American) 51.1 ml/min; Magnesium 1.9 mg/dl (1.8-2.4); Potassium 3.6 mmol/L (3.5-5.1)
[2021-07-21] MEDS: predniSONE 5 MG TAB PO SCH (08:47)
[2021-07-21] MEDS: ASPIRIN 81 MG CHEW PO SCH (08:47)
[2021-07-21] MEDS: APIXABAN 5 MG TABLET PO SCH ×2 (08:47→20:16)
[2021-07-21] MEDS: PANTOprazole 40 MG TAB PO SCH (08:47)
[2021-07-21] MEDS: UMECLIDINIUM/VILANTEROL 62.5/25MCG 7 PUFFS/INHALER INH SCH (08:47)
[2021-07-21] MEDS: FOLIC ACID 1 MG in SYRINGE 9.8 ML IV SCH (08:48)
[2021-07-21] MEDS: FLUTICASONE FUROATE 100MCG 14 PUFFS/INHALER INH SCH (08:48)
[2021-07-21] MEDS: FLUTICASONE PROPIONATE NA SPR 16 GM BTL SCH ×2 (08:48→20:16)
[2021-07-21] MEDS: NICOTINE 14 MG/24 HR PATCH TD SCH (08:49)
[2021-07-21] MEDS: THIAMINE HCL 250 MG in SODIUM CHLORIDE 0.9% 50 ML IV SCH (08:51)
[2021-07-21] MEDS: FLUCONAZOLE 200 MG/100 ML BAG IV SCH (08:55)
[2021-07-21] MEDS: LORazepam 1 MG TAB PO PRN ×2 (11:09→20:16)
[2021-07-21] MEDS ORDERED: LORazepam 1 MG/2 ML VIAL IV SCH (17:30)
[2021-07-21] MEDS: ROSUVASTATIN CALCIUM 20 MG TAB PO SCH (20:18)
[2021-07-21] MEDS: traZODone HCL 50 MG TAB PO PRN (21:01)
[2021-07-21] MEDS: MELATONIN 3 MG TAB PO SCH (21:01)
[2021-07-21] MEDS: ARTIFICIAL TEARS OP SCH (21:19)
--- NOTE | 2021-07-21 22:21 | Hospitalist Progress Note ---
Date of Service July 21, 2021 Assessment & Plan (1) Alcohol withdrawal: Plan: resolved cont supportive care cont MVI, thiamine, folate not interested in acute inpatient etoh rehab (2) Metabolic encephalopathy: Plan: 2nd to #1, #3, other etiologies?? resolved (3) Wernicke encephalopathy: Plan: seems resolved. 1 more day of high dose thiamine 250mg daily tomorrow, then continue thiamine 100mg BID thereafter by report had had diplopia - now resolved. (4) Oropharyngeal dysphagia: Plan: ENT, GI, and speech therapy appreciated. Cont fluconazole for thrush and laryngeal candidiasis. Tolerating pureed diet. Need for EGD?? Recent laryngoscopy without any mass/tumor. Could consider upper GI series/barium swallow. MRI brain pending to r/o [employer] cause of dysphagia. (5) Aspiration pneumonia: Plan: s/p 5-day run of levaquin - now off antibiotics. (6) Orthostatic hypotension: Plan: no issues at this time (7) Ambulatory dysfunction: Plan: Exact etiology uncertain. Severe deconditioning?? L-spine MRI without any lesion to account for ambulatory issues. Patient is agreeable to MRI brain if he can listen to country music and have pre-medication. needs inpt rehab (8) Afib: Plan: Diagnosed in 2019 and converted to NSR following sotalol load. Remains on eliquis BID. Not on AV latonia agents. Tele stable overnight again. can likely d/c tele in am. (9) CAD (coronary artery disease): Plan: Continue chewable aspirin Continue crestor (10) Hypertension: Plan: Stable off of meds (11) CKD (chronic kidney disease), stage III: Plan: BMPs stable (12) COPD, mild: Plan: albuterol prn (13) Obstructive sleep apnea: Plan: Intolerant to CPAP (14) Cold sore: Plan: Continue his acyclovir as needed (15) Hyperlipidemia: Plan: crestor (16) Allergic dermatitis: Plan: on chronic prednisone 5mg daily for such ?? (17) Tremor: Plan: benign essential tremor?? consider low-dose primidone (18) Laryngeal candidiasis: Plan: diflucan 200mg daily - day #4 plan 14 days of Rx can convert IV to po soon (19) DVT prophylaxis: Plan: eliquis BID Plan: dispo - needs rehab cont PT, OT, speech therapy while here Admission and Anticipated Discharge Date Admission Date: July 10, 2021 Subjective no change in swallowing he hates the pureed food and often skips it when it comes is taking fluids no issues w/ taking pills tremors improved willing to do MRI brain if country music can be listed to while he is in MRI machine no new complaints still willing to go to rehab Review of Systems Review of Systems: gen - fatigue/weakness eyes - no double vision Pulm - no dyspnea at rest CV - no chest pain GI - no abd pain, nausea, emesis Physical Exam Physical Exam: gen - NAD, looks good, talkative, a/o x 3 ENT - no thrush plaques, MMM neck - no JVD heart - RRR, s1 s2, no murmur lungs - CTA b/l, decreased BS bases abd - soft, NT, ND, BS+, no HSM ext - no edema, pulses 2+ b/l neuro - scant tremor b/l arms/hands Results & Data Results & Data ([facility]) Vital Signs (Past 12 Hours) Vital Signs Temp Pulse Pulse Resp BP Pulse Ox 07/21/21 16:12 36.6 C 70 18 114/73 96 07/21/21 14:53 95 H 07/21/21 11:42 36.9 C 82 18 128/82 93 Laboratory Results Laboratory Results - last 24 hr 07/21/21 06:20 Sodium 140 Potassium 3.6 Chloride 105 Carbon Dioxide 28 Anion Gap 7.0 BUN 13 Creatinine 1.42 H Est Cr Clr Drug Dosing 51.2 Est GFR ( Amer) 59.2 Est GFR (Non-Af Amer) 51.1 BUN/Creatinine Ratio 9.4 L Glucose 96 Calcium 9.4 Magnesium 1.9 PG Care Time/CCT Total # of Minutes Spent Total Time Spent with Patient: Total time spent is greater than 50% in coordination of care (as documented) at patient's floor/unit and/or counseling patient: Coding Level of Care Code 05246 Subseq Hosp Care Lvl 2 Diagnoses Alcohol withdrawal F10.239 Metabolic encephalopathy G93.41 Wernicke encephalopathy E51.2 Oropharyngeal dysphagia R13.12 Aspiration pneumonia J69.0 Orthostatic hypotension I95.1 Ambulatory dysfunction R26.2 Afib I48.91 CAD (coronary artery disease) I25.10 Hypertension I10 CKD (chronic kidney disease), stage III N18.3 COPD, mild J44.9 Obstructive sleep apnea G47.33 Cold sore B00.1 Hyperlipidemia E78.5 Allergic dermatitis L23.9 Tremor R25.1 Laryngeal candidiasis B37.89 DVT prophylaxis Z29.9
[2021-07-22] MEDS: NICOTINE 14 MG/24 HR PATCH TD SCH (07:54)
[2021-07-22] MEDS: FLUTICASONE PROPIONATE NA SPR 16 GM BTL SCH ×2 (07:54→21:10)
[2021-07-22] MEDS: ASPIRIN 81 MG CHEW PO SCH (07:55)
[2021-07-22] MEDS: PANTOprazole 40 MG TAB PO SCH (07:55)
[2021-07-22] MEDS: predniSONE 5 MG TAB PO SCH (07:55)
[2021-07-22] MEDS: FLUTICASONE FUROATE 100MCG 14 PUFFS/INHALER INH SCH (07:56)
[2021-07-22] MEDS: APIXABAN 5 MG TABLET PO SCH ×2 (07:56→21:10)
[2021-07-22] MEDS: FOLIC ACID 1 MG in SYRINGE 9.8 ML IV SCH (07:56)
[2021-07-22] MEDS: UMECLIDINIUM/VILANTEROL 62.5/25MCG 7 PUFFS/INHALER INH SCH (07:56)
[2021-07-22] MEDS: ARTIFICIAL TEARS OP SCH ×2 (07:57→21:10)
[2021-07-22] MEDS ORDERED: LORazepam 1 MG/2 ML VIAL IV SCH (08:00)
[2021-07-22] MEDS: THIAMINE HCL 250 MG in SODIUM CHLORIDE 0.9% 50 ML IV SCH (08:19)
[2021-07-22] MEDS: FLUCONAZOLE 200 MG/100 ML BAG IV SCH (08:55)
[2021-07-22] MEDS: LORazepam 1 MG TAB PO PRN ×2 (08:57→20:12)
--- NOTE | 2021-07-22 13:00 | Magnetic Resonance Report ---
MR brain wo con HISTORY: 66 years-old Male dysphagia, recent diplopia; assess CVA acute strokelike symptoms COMPARISON: Head CT 07/15/2021 TECHNIQUE: Multiplanar multisequence MRI of the brain was obtained without the use of IV contrast. FINDINGS: No restricted diffusion to suggest acute or subacute infarct. No acute intracranial hemorrhage, midli ne shift, abnormal extra-axial collection, hydrocephalus or intracranial mass. Mild involutional rae ges. Mild scattered T2/FLAIR hyperintensities are noted throughout the white matter suggestive of mil d chronic microvascular ischemic disease. The cerebral venous sinuses and major arterial flow voids appear patent. Moderate mastoid effusions. Minimal mucosal thickening of the maxillary and ethmoid sinuses. The skull and soft tissues are unrem arkable. Prior bilateral lens repair. IMPRESSION: 1. No acute intracranial abnormality, specifically there is no evidence of acute or subacute infarct. 2. Suggestion of mild chronic microvascular ischemic disease. 3. Moderate mastoid effusions. ACT 112: Negative or not required by law. The above report was generated using voice recognition software. It may contain grammatical, syntax o r spelling errors. Electronically signed by: Conrado Grimaldo M.D. 07/22/2021 12:58 PM
[2021-07-22] MEDS: ROSUVASTATIN CALCIUM 20 MG TAB PO SCH (21:11)
[2021-07-22] MEDS: MELATONIN 3 MG TAB PO SCH (21:11)
--- NOTE | 2021-07-22 21:12 | Hospitalist Progress Note ---
Date of Service July 22, 2021 Assessment & Plan (1) Alcohol withdrawal: Plan: resolved cont MVI, thiamine, folate not interested in acute inpatient etoh rehab; only outpatient options (2) Metabolic encephalopathy: Plan: resolved #1, #3 largest culprits (3) Wernicke encephalopathy: Plan: resolved. stop high dose thiamine 250mg daily then continue thiamine 100mg BID thereafter by report had had diplopia - now resolved. (4) Oropharyngeal dysphagia: Plan: ENT, GI, and speech therapy appreciated. Cont fluconazole for thrush and laryngeal candidiasis. Tolerating pureed diet. Need for EGD?? had such 6 months ago; GI suggested perhaps repeat as outpati ent. Recent laryngoscopy without any mass/tumor. Could consider upper GI series/barium swallow. MRI brain without stroke - old or new. (5) Aspiration pneumonia: Plan: s/p 5-day run of levaquin - now off antibiotics. (6) Orthostatic hypotension: Plan: no issues at this time (7) Ambulatory dysfunction: Plan: Exact etiology uncertain. Severe deconditioning suspected. L-spine MRI without any lesion to account for ambulatory issues. MRI brain without old/new stroke. cont PT, OT. at d/c will go to [facility]. (8) Afib: Plan: Diagnosed in 2019 and converted to NSR following sotalol load. Remains on eliquis BID. Not on AV latonia agents. (9) CAD (coronary artery disease): Plan: Continue chewable aspirin Continue crestor (10) Hypertension: Plan: Stable off of meds (11) CKD (chronic kidney disease), stage III: Plan: BMPs stable (12) COPD, mild: Plan: albuterol prn no flare (13) Obstructive sleep apnea: Plan: Intolerant to CPAP (14) Cold sore: Plan: Continue his acyclovir as needed (15) Hyperlipidemia: Plan: crestor (16) Allergic dermatitis: Plan: on chronic prednisone 5mg daily for such ?? (17) Tremor: Plan: benign essential tremor?? consider low-dose primidone (18) Laryngeal candidiasis: Plan: diflucan 200mg daily - day #5 plan 14 days of Rx can convert IV to po soon (19) DVT prophylaxis: Plan: eliquis BID Plan: dispo - needs rehab cont PT, OT, speech therapy while here sister updated earlier this week Admission and Anticipated Discharge Date Admission Date: July 10, 2021 Subjective able to complete MRI brain no old or new CVA patient doing fine no new issues doesn't like the pureed diet doesn't like minced/moist tolerating liquids no new complaints very lengthy conversation about etoh rehab he is not interested may be interested in outpatient options Review of Systems Review of Systems: gen - no fevers; some weakness CV - no chest pain pulm - no dyspnea at rest abd/GI - no pain or vomiting Physical Exam Physical Exam: gen - NAD ENT - no thrush plaques, MMM; mild dysphonia neck - no JVD heart - RRR, s1 s2, no murmur lungs - CTA b/l, decreased BS bases abd - soft, NT, ND, BS+, no HSM ext - no edema, pulses 2+ b/l neuro - scant tremor b/l arms/hands - no change Results & Data Results & Data ([facility]) Vital Signs (Past 12 Hours) Vital Signs Temp Pulse Resp BP Pulse Ox 07/22/21 15:26 36.3 C L 88 18 105/67 96 Laboratory Results Laboratory Results - last 24 hr 07/22/21 07:22 Magnesium 1.8 PG Care Time/CCT Total # of Minutes Spent Total Time Spent with Patient: Total time spent is greater than 50% in coordination of care (as documented) at patient's floor/unit and/or counseling patient: Coding Level of Care Code 72248 Subseq Hosp Care Lvl 2 Diagnoses Alcohol withdrawal F10.239 Metabolic encephalopathy G93.41 Wernicke encephalopathy E51.2 Oropharyngeal dysphagia R13.12 Aspiration pneumonia J69.0 Orthostatic hypotension I95.1 Ambulatory dysfunction R26.2 Afib I48.91 CAD (coronary artery disease) I25.10 Hypertension I10 CKD (chronic kidney disease), stage III N18.3 COPD, mild J44.9 Obstructive sleep apnea G47.33 Cold sore B00.1 Hyperlipidemia E78.5 Allergic dermatitis L23.9 Tremor R25.1 Laryngeal candidiasis B37.89 DVT prophylaxis Z29.9
[2021-07-22] MEDS: traZODone HCL 50 MG TAB PO PRN (21:16)
[2021-07-23] MEDS: APIXABAN 5 MG TABLET PO SCH ×2 (08:27→21:36)
[2021-07-23] MEDS: CEROVITE ADV FORMULA TAB PO SCH (08:27)
[2021-07-23] MEDS: FOLIC ACID 1 MG TAB PO SCH (08:27)
[2021-07-23] MEDS: UMECLIDINIUM/VILANTEROL 62.5/25MCG 7 PUFFS/INHALER INH SCH (08:28)
[2021-07-23] MEDS: PANTOprazole 40 MG TAB PO SCH (08:28)
[2021-07-23] MEDS: NICOTINE 14 MG/24 HR PATCH TD SCH ×2 (08:28→08:39)
[2021-07-23] MEDS: ARTIFICIAL TEARS OP SCH ×2 (08:28→21:36)
[2021-07-23] MEDS: ASPIRIN 81 MG CHEW PO SCH (08:28)
[2021-07-23] MEDS: FLUCONAZOLE 100 MG TAB PO SCH (08:28)
[2021-07-23] MEDS: FLUTICASONE PROPIONATE NA SPR 16 GM BTL SCH ×2 (08:28→21:36)
[2021-07-23] MEDS: FLUTICASONE FUROATE 100MCG 14 PUFFS/INHALER INH SCH (08:29)
[2021-07-23] MEDS: predniSONE 5 MG TAB PO SCH (08:29)
[2021-07-23] MEDS: THIAMINE HCL 250 MG in SODIUM CHLORIDE 0.9% 50 ML IV SCH (08:38)
[2021-07-23] MEDS: LORazepam 1 MG TAB PO PRN ×4 (09:01→21:35)
[2021-07-23] MEDS: traZODone HCL 50 MG TAB PO PRN (21:35)
[2021-07-23] MEDS: MELATONIN 3 MG TAB PO SCH (21:36)
[2021-07-23] MEDS: ROSUVASTATIN CALCIUM 20 MG TAB PO SCH (21:37)
--- NOTE | 2021-07-24 05:41 | Hospitalist Progress Note ---
Date of Service July 23, 2021 Assessment & Plan (1) Alcohol withdrawal: Plan: resolved cont MVI, thiamine, folate convert thiamine IV to PO tomorrow am not interested in acute inpatient etoh rehab; only outpatient options (2) Metabolic encephalopathy: Plan: resolved #1, #3 largest culprits (3) Wernicke encephalopathy: Plan: resolved. by report had had diplopia - now resolved. at d/c send out on thiamine 100mg BID x 1-2 months (4) Oropharyngeal dysphagia: Plan: ENT, GI, and speech therapy appreciated. Cont fluconazole for thrush and laryngeal candidiasis. Tolerating current diet. Need for EGD?? had such 6 months ago; GI suggested perhaps repeat as outpatient. Recent laryngoscopy without any mass/tumor. Could consider upper GI series/barium swallow. MRI brain without stroke - old or new. Speech to perform either FEES or video swallow tomorrow. (5) Aspiration pneumonia: Plan: s/p 5-day run of levaquin - now off antibiotics. (6) Orthostatic hypotension: Plan: no issues at this time resolved (7) Ambulatory dysfunction: Plan: Severe deconditioning suspected. L-spine MRI without any lesion to account for ambulatory issues. MRI brain without old/new stroke. cont PT, OT. at d/c will go to [facility]. (8) Afib: Plan: Diagnosed in 2019 and converted to NSR following sotalol load at that time. Remains on eliquis BID. Not on AV latonia agents. Was in NSR prior to tele being discontinued. (9) CAD (coronary artery disease): Plan: Continue chewable aspirin Continue crestor (10) Hypertension: Plan: Stable off of meds (11) CKD (chronic kidney disease), stage III: Plan: BMPs stable (12) COPD, mild: Plan: albuterol prn no flare essentially has quit smoking - no tobacco in over 2 weeks declining nicoderm patch (13) Obstructive sleep apnea: Plan: Intolerant to CPAP (14) Cold sore: Plan: Continue his acyclovir as needed (15) Hyperlipidemia: Plan: crestor (16) Allergic dermatitis: Plan: on chronic prednisone 5mg daily for such ?? but no rash while here (17) Tremor: Plan: benign essential tremor?? consider low-dose primidone (18) Laryngeal candidiasis: Plan: diflucan 200mg daily - day #6 plan 14 days of Rx (19) DVT prophylaxis: Plan: eliquis BID Plan: dispo - needs rehab cont PT, OT, speech therapy while here sister updated earlier this week to [facility] tomorrow I spoke with social work and she is aware of plan Admission and Anticipated Discharge Date Admission Date: July 10, 2021 Subjective speech saw patient and is planning FEES or video swallow tomorrow he did have video swallow early June that was essentially normal pt w/o any new complaints today he is aware of speech's plan and subsequent d/c to [facility] tomorrow ate pancakes today w/o difficulty - "they were so good" Review of Systems Review of Systems: gen - weakness persists but getting up on his own now CV - no chest pain Pulm - no dyspnea GI - no pain or nausea or emesis Physical Exam Physical Exam: gen - NAD ENT - no thrush plaques, MMM; mild dysphonia unchanged neck - no JVD heart - RRR, s1 s2, no murmur lungs - CTA b/l, decreased BS bases, no wheezes today abd - soft, NT, ND, BS+, no HSM ext - no edema, pulses 2+ b/l psych - a/o x 3 Results & Data Results & Data ([facility]) Vital Signs (Past 12 Hours) Vital Signs Temp Pulse Resp BP Pulse Ox 07/23/21 23:00 36.7 C 77 20 114/72 94 PG Care Time/CCT Total # of Minutes Spent Total Time Spent with Patient: Total time spent is greater than 50% in coordination of care (as documented) at patient's floor/unit and/or counseling patient: Coding Level of Care Code 97205 Subseq Hosp Care Lvl 2 Diagnoses Alcohol withdrawal F10.239 Metabolic encephalopathy G93.41 Wernicke encephalopathy E51.2 Oropharyngeal dysphagia R13.12 Aspiration pneumonia J69.0 Orthostatic hypotension I95.1 Ambulatory dysfunction R26.2 Afib I48.91 CAD (coronary artery disease) I25.10 Hypertension I10 CKD (chronic kidney disease), stage III N18.3 COPD, mild J44.9 Obstructive sleep apnea G47.33 Cold sore B00.1 Hyperlipidemia E78.5 Allergic dermatitis L23.9 Tremor R25.1 Laryngeal candidiasis B37.89 DVT prophylaxis Z29.9
[2021-07-24 07:59] LABS: Hematocrit (blood only) 33.9 % (42-52); Hemoglobin 10.8 g/dL (14.0-18.0); Mean Corpuscular Hemoglobin 29.3 pg (25-34); Mean Corpuscular Hgb Conc 31.9 g/dL (32-36); Mean Corpuscular Volume 92.1 fL (80-100); Mean Platelet Volume 9.4 fL (7.4-10.4); Platelet Count 307 K/uL (130-400); RDW Coefficient of Variation 17.7 % (11.5-14.5); Red Blood Count 3.68 M/uL (4.7-6.1); White Blood Count 11.25 K/uL (4.8-10.8)
[2021-07-24] MEDS: APIXABAN 5 MG TABLET PO SCH (08:21)
[2021-07-24] MEDS: PANTOprazole 40 MG TAB PO SCH (08:21)
[2021-07-24] MEDS: predniSONE 5 MG TAB PO SCH (08:22)
[2021-07-24] MEDS: FOLIC ACID 1 MG TAB PO SCH (08:22)
[2021-07-24] MEDS: CEROVITE ADV FORMULA TAB PO SCH (08:22)
[2021-07-24] MEDS: FLUCONAZOLE 100 MG TAB PO SCH (08:22)
[2021-07-24] MEDS: ASPIRIN 81 MG CHEW PO SCH (08:22)
[2021-07-24] MEDS: NICOTINE 14 MG/24 HR PATCH TD SCH (08:23)
[2021-07-24] MEDS: FLUTICASONE FUROATE 100MCG 14 PUFFS/INHALER INH SCH (08:25)
[2021-07-24] MEDS: UMECLIDINIUM/VILANTEROL 62.5/25MCG 7 PUFFS/INHALER INH SCH (08:26)
[2021-07-24] MEDS: FLUTICASONE PROPIONATE NA SPR 16 GM BTL SCH (08:27)
[2021-07-24] MEDS: ARTIFICIAL TEARS OP SCH (08:27)
[2021-07-24 08:34] LABS: BUN Creatinine Ratio 10.5 (10-20); Calcium 10.4 mg/dl (8.5-10.1); Creatinine Clr Calc Pharmacy 49.9 ml/min; Est GFR (African American) 57.3 ml/min; Est GFR (Non-African American) 49.4 ml/min; Potassium 3.9 mmol/L (3.5-5.1)
[2021-07-24] MEDS ORDERED: THIAMINE HCL 100 MG TAB PO SCH (09:00)
[2021-07-24] MEDS: LORazepam 1 MG TAB PO PRN (10:41)
--- NOTE | 2021-07-24 13:14 | Discharge Summary ---
Date of Service date of admission - July 10, 2021 date of discharge - July 24, 2021 Admission HPI Per Admitting Provider 66 YOM with past medical history of: CAD, HTN, HLD, Afib(on apixaban), CABG, ETOH abuse, ETOH withdrawal, GERD, COPD, allergic rhinitis, DVT/PE, LITA, active smoker, anxiety. Patient comes to the EMD today as he wishes to stop drinking alcohol, he reports that he has been drinking since he was 14 years old. Mainly drinks beer and liquor. Reports no other drugs and hasn't used any since "many many years ago". He has been trying to cut his drinking down, and only drinks enough to take away his tremors. He has been having some vomiting today, he has quit before but reports he re-lapsed x2. He does not remember ever having a seizure of delirium tremors. He reports his last drink as this morning and his ETOH level is 234 on admisison. Patient was recently discharged from [facility] for a COPD exacerbation and placed on AZT M,W,F schedule. Patient was already started on Gabapentin and Ativan protocol in the EMD. Patient will be admitted for continued treatment and support of his ETOH withdraw he would be high risk for DTs based off his history. Patient had a CABGx3 in 2007 (GOMEZ-LAD, SVG to ramus and RCA). In march he had a stress test that was abnormal, he then had a cardiac cath on 04/16/21. This revealed that the saphenous vein grafts which were reported cannot be cannulated and were not found on aortography and are assumed closed. The CHANTAL graft to the LAD is atretic and nonfunctional distally. The LAD, left circumflex and ramus arteries have nonobstructive disease and are patent. The nondominant right coronary artery is patent. He is continued on medical management. He has also been on prednisone for the past 3-4 months for what he reports as a bump on his chin that will not go away and he has been continually picking at. He has received his COVID vaccine and his test on admission is NEGATIVE. Principal Diagnosis 1. alcohol withdrawal 2. severe deconditioning 3. chronic dysphagia 4. laryngeal candidiasis Discharge Exam gen - NAD ENT - no thrush plaques, MMM; mild dysphonia unchanged from prior exams neck - no JVD heart - RRR, s1 s2, no murmur lungs - CTA b/l abd - soft, NT, ND, BS+, no HSM ext - no edema, pulses 2+ b/l psych - a/o x 3 Discharge Data Allergies Allergy/AdvReac Type Severity Reaction Status Date / Time Penicillins Allergy Severe Anaphylaxis Verified 07/10/21 17:49 ciprofloxacin Allergy Intermediate hives & Verified 07/10/21 17:49 nausea strawberry Allergy Hives Verified 07/11/21 14:20 codeine AdvReac Mild Vomiting Verified 07/10/21 17:49 hydromorphone [From Dilaudid] AdvReac Mild Vomiting Verified 07/10/21 17:49 metronidazole AdvReac Mild N&V Verified 07/10/21 17:49 morphine AdvReac Mild N&V Verified 07/10/21 17:49 Tetracyclines AdvReac Mild Vomiting Verified 07/10/21 17:49 Consultations Psychiatry [facility] Otolaryngology [facility] PT OT Speech Therapy Procedures Performed Laryngoscopy - Venus Mitchell MD (ENT) Procedure: Flexible fiberoptic laryngoscopy Indication: dysphagia, dysphonia Details: Following the topical application of afrin and lidocaine, the flexible laryngoscope was inserted into the nasal cavity. The septum, turbinates, and nasal mucosa were as described above. The nasopharynx was normal. The base of tongue and vallecula were normal. The epiglottis, bilateral arytenoids, and bilateral aryepiglottic folds, and bilateral false vocal folds were normal. There were white plaques throughout the supraglottis and on the larynx. The true vocal folds were normal without masses or lesions. There was normal mobility of the true vocal folds bilaterally. The bilateral pyriform sinuses and postcricoid space was normal. There was no pooling of secretions. No aspiration or penetration was visualized. The patient tolerated the procedure well. Ordered Studies Cervical Spine MRI 07/14/21 13:14 CERVICAL SPINE MRI HISTORY: neck pain, bilateral extremity weakness, ?stenosis TECHNIQUE: Multiplanar multisequence MRI of the cervical spine was performed without the use of contrast. COMPARISON STUDY: None. FINDINGS: There are partially visualized bilateral mastoid effusions. There is mild motion artifact. Straightening of the upper cervical spine. No fracture or subluxation. Prevertebral soft tissues and the C1-C2 interval are intact. The visualized posterior fossa is unremarkable. The cervical spinal cord is normal and course, caliber, and signal intensity. Mild disc space narrowing at C4-C5 and C5-C6. No epidural fluid collections. C2-C3: No significant central canal or neural foraminal narrowing. C3-C4: No significant central canal narrowing. Bilateral uncovertebral facet hypertrophy resulting in moderate bilateral neural foraminal narrowing. C4-C5: Small broad-based posterior disc osteophyte complex without significant central canal narrowing. There appears to be severe right and moderate left neural foraminal narrowing due to the uncovertebral hypertrophy. C5-C6: Small broad-based posterior disc osteophyte complex without significant central canal narrowing. There is moderate bilateral neural foraminal narrowing. C6-C7: No significant central canal or neural foraminal narrowing. C7-T1: No significant central canal or neural foraminal narrowing. IMPRESSION: 1. No fracture or subluxation within the cervical spine. 2. Mild disc space narrowing at C4-C5 and C5-C6. 3. Suboptimal evaluation due to the motion artifact. However, there are no disc herniations. No significant central canal narrowing. 4. Bilateral neural foraminal narrowing as described above. ACT 112: Negative or not required by law. Electronically signed by: Andrea Bustamante M.D. 07/14/2021 5:22 PM Orbit X-Ray 07/14/21 14:53 BONY ORBITS 3 VIEWS CLINICAL HISTORY: MRI clearance. FINDINGS: 3 views of the bony orbits are obtained. No prior studies are available for comparison at the time of dictation. There is no radiodense/metallic foreign body seen in the region of the bony orbits. The bony orbits are intact as imaged. The visualized paranasal sinuses and the mastoid air cells appear clear. The imaged calvarium appears intact. IMPRESSION: There is no radiodense/metallic foreign body seen in the region of the bony orbits. ACT 112: Negative or not required by law. Electronically signed by: Feliciano Chawla M.D. 07/14/2021 4:06 PM Chest X-Ray 07/15/21 14:14 XR chest 1V portable CLINICAL HISTORY: altered mental state ?pneumonia COMPARISON STUDY: No previous studies for comparison. FINDINGS: There are median sternotomy wires and mediastinal surgical clips. There is no evidence for pulmonary edema. Biapical opacities are nonspecific but favor scarring. Right basilar opacity is noted. Minimal left basilar opacity is present. There is mild elevation of the right hemidiaphragm. IMPRESSION: 1. Right basilar opacity which favors pneumonia. Atelectasis could appear similar although is considered less likely. Radiographic follow-up is recommended to ensure resolution. 2. Biapical opacities are nonspecific which favor scarring. ACT 112: Negative or not required by law. Electronically signed by: Gaston Nettles M.D. 07/15/2021 3:[address] 07/15/21 14:14 CT SCAN OF THE BRAIN WITHOUT IV CONTRAST CLINICAL HISTORY: Change in mental status. COMPARISON STUDY: No priors. TECHNIQUE: Unenhanced axial CT scan of the brain is performed from the vertex to the skull base. A dose lowering technique was utilized adhering to the principles of ALARA. CT DOSE: 853.38 mGy.cm FINDINGS: Brain parenchyma: There are age-related involutional changes noting mild subcortical and periventricular microangiopathic change. There is no hemorrhage, mass effect, or evidence of acute territorial ischemia by CT criteria. Singh- white matter differentiation is preserved. No extra-axial fluid collection is seen. Ventricles, sulci, cisterns: Prominent secondary to involutional change. Intracranial vasculature: There is atherosclerotic calcification of the cavernous carotid and vertebral arteries. Calvarium: Unremarkable. Sinuses and mastoids: The =paranasal sinuses are clear. There are bilateral mastoid effusions. Orbits: The bony orbits are grossly intact. There are bilateral ocular lens implants. IMPRESSION: There is no hemorrhage, mass effect, or evidence of acute territorial ischemia by CT criteria. ACT 112: Negative or not required by law. Electronically signed by: Feliciano Chawla M.D. 07/15/2021 3:22 PM Lumbar Spine MRI 07/16/21 21:37 MRI OF THE LUMBAR SPINE WITHOUT CONTRAST CLINICAL HISTORY: loss of bowel/bladder control, b/l LE weakness COMPARISON STUDY: No previous studies for comparison. TECHNIQUE: Utilizing a 1.5 Renae magnet and dedicated coil, multiplanar, multiecho imaging of the lumbar spine was performed without IV contrast. FINDINGS: For purposes of numbering on this exam, the L5-S1 disc space is assigned to axial image 28 of 30. Vertebral body heights are maintained. There are a few Schmorl's nodes within lumbar spine. There is no intracanalicular mass or fluid collection. The conus terminates at the upper L2 level. Paravertebral soft tissues are unremarkable. There is no suspicious marrow replacement. The axial images are significantly compromised by motion artifact. The sagittal images are diagnostic. L1-2: The central canal and neural foramen are patent. L2-3: The central canal and neural foramen are patent. There is mild facet arthrosis. L3-4: The central canal and neural foramen are patent. There is mild facet arthrosis. L4-5: There is a central annular tear. There is no central canal stenosis. There may be a tiny central disc protrusion. There is mild facet arthrosis. The neural foramen are patent. L5-S1: Facet arthrosis is present. There is mild disc bulge. The central canal is patent. Left neural foramen is patent. There is moderate narrowing of the right neural foramen. IMPRESSION: 1. No acute process within the lumbar spine by MRI. Exam compromised by motion artifact however sagittal images diagnostic. 2. Patent central canal. Moderate narrowing of the right L5-S1 neural foramen, as described above. 2. Mild multilevel degenerative disc disease and mild to moderate facet arthrosis. ACT 112: Negative or not required by law. Electronically signed by: Gaston Nettles M.D. 07/17/2021 8:20 AM Brain MRI 07/22/21 17:20 MR brain wo con HISTORY: 66 years-old Male dysphagia, recent diplopia; assess CVA acute strokelike symptoms COMPARISON: Head CT 07/15/2021 TECHNIQUE: Multiplanar multisequence MRI of the brain was obtained without the use of IV contrast. FINDINGS: No restricted diffusion to suggest acute or subacute infarct. No acute intracranial hemorrhage, midline shift, abnormal extra-axial collection, hydrocephalus or intracranial mass. Mild involutional changes. Mild scattered T2/FLAIR hyperintensities are noted throughout the white matter suggestive of mild chronic microvascular ischemic disease. The cerebral venous sinuses and major arterial flow voids appear patent. Moderate mastoid effusions. Minimal mucosal thickening of the maxillary and ethmoid sinuses. The skull and soft tissues are unremarkable. Prior bilateral lens repair. IMPRESSION: 1. No acute intracranial abnormality, specifically there is no evidence of acute or subacute infarct. 2. Suggestion of mild chronic microvascular ischemic disease. 3. Moderate mastoid effusions. ACT 112: Negative or not required by law. The above report was generated using voice recognition software. It may contain grammatical, syntax or spelling errors. Electronically signed by: Conrado Grimaldo M.D. 07/22/2021 12:58 PM Hospital Course (1) Alcohol withdrawal: Treated in customary fashion with IV fluids, benzodiazepines, and supportive care. Withdrawal resolved with the above. He did not experience navjot delirium tremens. He was maintained on MVI, thiamine, and folate supplementation. Patient was not interested in acute inpatient etoh rehab - only outpatient options. Recommend psychology consultation upon admission to [facility]. Course complicated by suspected Wernicke's encephalopathy. (2) Metabolic encephalopathy: resolved #1, #3 largest culprits (3) Wernicke encephalopathy: Suspected/possible. By report he had had diplopia but fortunately this resolved during the stay. He was treated for suspected Wernicke's with high-dose IV/PO thiamine. Mentation improved with time and thiamine supplementation. He will continue on thiamine twice daily upon discharge. (4) Oropharyngeal dysphagia: ENT, GI, and speech therapy were consulted for this chronic issue. He had evidence of oral candidiasis on exam and direct laryngoscopy showed evidence of laryngeal candidiasis. He was initiated on fluconazole for the above. At discharge I recommended a 21-day course of fluconazole 7 days of which he received in the hospital. Laryngoscopy did not show any mass/tumor. MRI brain did not show any stroke as the cause of his dysphagia. Video swallow test in early June 2021 did not show aspiration. Bedside FEES performed by speech therapy showed normal swallowing but evidence of laryngeal candidiasis. Patient was seen by GI during the stay and EGD was deferred as he had underwent EGD in 12/2020. That EGD performed by [facility] GI showed a GE junction Schatzki ring (s/p dilatation) along with oral thrush. GI deferred on repeat EGD this admission. They did comment that if swallowing difficulty continued they may consider repeat EGD as outpatient. Upon transfer to [facility] recommend ongoing speech therapy for his dysphagia as well as prominent gag reflex. Advised ENT and GI follow-up appointments. (5) Aspiration pneumonia: Suspected. s/p 5-day course of levaquin while hospitalized. (6) Orthostatic hypotension: resolved (7) Ambulatory dysfunction: Severe deconditioning suspected as cause of ambulatory dysfunction. L-spine MRI without any lesion to account for ambulatory issues. MRI brain without old/new stroke. cont PT, OT at [facility]. (8) Afib: Paroxysmal. Diagnosed in 2019 and converted to NSR following sotalol load at that time. Remains on eliquis BID. Not on AV latonia agents. Was in NSR during his stay. (9) CAD (coronary artery disease): Continue chewable aspirin Continue crestor No ischemic symptoms while hospitalized (10) Hypertension: Stable off of meds (11) CKD (chronic kidney disease), stage III: BMPs stable throughout his stay. Discharge creatinine was 1.4. (12) COPD, mild: albuterol prn no flare while here (13) Obstructive sleep apnea: Intolerant to CPAP (14) Cold sore: Continue acyclovir as needed (15) Hyperlipidemia: continue crestor (16) Allergic dermatitis: on chronic prednisone 5mg daily for such -- he reports a nonhealing wound on his face requiring prednisone? but no rash while here. I recommended he f/u with his PCP upon discharge from [facility] to discuss weaning off the prednisone. The prednisone along with his COPD inhalers are the culprits for ongoing issues with oral & laryngeal candidiasis. (17) Tremor: benign essential tremor?? consider low-dose primidone as outpatient (18) Laryngeal candidiasis: Diflucan 200mg daily x 21 days (completed ~7 days of therapy in the hospital). (19) Candidiasis of mouth and esophagus: Diflucan + nystatin solution. Improved while here. (20) Hypercalcemia: Minimal. Total calcium 10.4 on day of discharge. Etiology uncertain. Not on medications that would cause high calcium levels. Recommend a repeat calcium level along with 25-OH vit D, intact PTH, phosphorus, etc in the days following discharge to [facility]. Total Time Total Time Spent Total Time Spent (In Minutes): 45 Discharge Plan Discharge Items Patient Disposition: Transfer Inpatient Rehab Fac Reason For Visit: ALCOHOL WITHDRAWAL Discharge Diagnosis: 1. alcohol withdrawal - resolved 2. possible Wernicke's encephalopathy - resolved 3. long-standing/chronic dysphagia - exact etiology uncertain 4. laryngeal candidiasis and oral candidiasis 5. deconditioning 6. alcoholism Activity: Resume your previous activity Non-emergency contact: Primary Care Provider, Specialist and Senior Warehouse Clerk Call non-emergency contact if: you have any medication questions, your symptoms worsen and you have a fever Follow-up/Referrals: Damon Mitchell MD [Physician] - (2-3 weeks for follow-up of laryngeal candidiasis ) Thom Babcock DO [Primary Care Provider] - (see within 1 week of discharge from [facility]) Suzette Fay CRNP [Nurse Practitioner] - (3-4 weeks - [facility] - for consideration of EGD ) Diet: Regular Diet Texture: Easy to Chew Addtl Attending Provider Instructions: Mr Jones, You were treated for the problems listed above in "discharge diagnoses." You have made very nice progress with your strength & conditioning, ability to eat/drink, and your overall well-being while hospitalized. ENT performed a direct laryngoscopy earlier in your stay demonstrating laryngeal candidiasis (yeast on your vocal cords). I believe that long-standing use of prednisone is the reason behind you developing this. Speech therapy also performed a FEES study on 07/24/21 which did NOT show aspiration of liquid into the lungs. It did show ongoing yeast in the back of your throat. When you discharge from [facility] please meet with Dr Babcock to discuss your prednisone for your skin condition. It may be worthwhile to have another visit with dermatology to determine if you can gradually come off the prednisone. The prednisone will set you up for continued episodes of yeast in your mouth, throat, etc. The yeast can also get into your esophagus. Follow-up appointments - see separate section Recommendations - 1. CBC, BMP in 3 days for stability 2. 25-OH vitamin D, intact PTH, and phosphorus in 3 days (total calcium level mildly elevated at 10.4 on day of discharge from [facility] - etiology uncertain as calcium level was normal throughout the stay) 3. psychology consult at [facility] for severe anxiety, options for outpatient alcohol treatment/rehab Pending Studies at Discharge: No Stand-Alone Forms: My [facility] Skilled Items Patient informed of condition?: Yes DNR: No Discharge Level of Care: Acute rehab Communicable Disease: No Discharge Prognosis: Stable Lines: None Urinary Catheter: No Medications and DC Order Prescriptions: New fluconazole 100 mg Tablet 200 mg PO QAM 14 Days Qty: 28 RF: 0 trazodone 50 mg Tablet 25 mg PO HS PRN (Reason: sleep) Qty: 30 RF: 0 polyvinyl alcohol [Artificial Tears (polyvin alc)] 1.4 % Drops 2 drp ophthalmic (eye) BID Qty: 1 RF: 0 melatonin 3 mg Tablet 6 mg PO HS Qty: 30 RF: 0 lorazepam 1 mg Tablet 1 mg PO Q4H PRN (Reason: anxiety) Qty: 10 RF: 0 nystatin 100,000 unit/mL suspension 5 ml PO QID 10 Days Qty: 200 RF: 0 Continued cetirizine 10 mg tablet 10 mg PO DAILY PRN (Reason: allergy symptoms) Qty: 90 RF: 1 promethazine 12.5 mg tablet 12.5 mg PO Q6H PRN (Reason: nausea and vomiting) Qty: 30 RF: 0 rosuvastatin 40 mg tablet 40 mg PO QPM Qty: 90 RF: 3 apixaban 5 mg tablet 5 mg PO BID Qty: 60 RF: 5 fluticasone propionate 50 mcg/actuation spray,suspension 1 spray intranasal BID Qty: 18.2 RF: 5 montelukast 10 mg tablet 10 mg PO HS Qty: 90 RF: 3 pantoprazole [Protonix] 40 mg tablet,delayed release (DR/EC) 40 mg PO DAILY Qty: 30 RF: 2 prednisone 5 mg tablet 5 mg PO QAM Qty: 30 RF: 0 multivitamin [Multiple Vitamins] tablet 1 tab PO QAM RF: 0 albuterol sulfate 90 mcg/actuation HFA aerosol inhaler 2 puffs inhalation Q4H PRN (Reason: shortness of breath or wheezing) Qty: 18 RF: 5 nitroglycerin 0.4 mg tablet, sublingual 0.4 mg SL Q5M PRN (Reason: chest pain x3 doses, if no relief call 911) Qty: 25 RF: 1 omega-3 acid ethyl esters 1 gram capsule 1 cap PO DAILY RF: 0 Trelegy Ellipta 100-62.5-25 mcg blister with device 1 inh inhalation DAILY RF: 0 albuterol sulfate [ProAir HFA] 90 mcg/actuation HFA aerosol inhaler 2 puff inhalation Q6H PRN (Reason: shortness of breath or wheezing) Qty: 8.5 RF: 5 folic acid 1 mg tablet 1 mg PO DAILY RF: 0 Changed famotidine [Pepcid] 40 mg tablet 20 mg PO QAM Qty: 90 RF: 3 thiamine HCl (vitamin B1) 100 mg tablet 100 mg PO BID Qty: 0 RF: 0 acyclovir 5 % ointment 1 applic topical .COMPLEX 7 Days Qty: 5 RF: 0 Discontinued azithromycin 500 mg tablet 500 mg PO DAILY RF: 0 chlordiazepoxide HCl 10 mg capsule 10 mg PO TID Qty: 30 RF: 0 erythromycin 5 mg/gram (0.5 %) ointment 0.5 inch ophthalmic (eye) TID Qty: 1 RF: 0 amlodipine 2.5 mg tablet 2.5 mg PO DAILY RF: 0 Discharge Orders: Discharge Order (Routine); Ordered 07/24/21 Ordered By: Ye Escobar/Other Patient Handouts: Understanding a Schatzki Ring, Lifestyle Changes for Controlling GERD, Discharge Instructions- Eating a ..., Jovanna Infection: Thrush Admission Data Admit Date/Time: 07/10/21 19:31 Attending Provider: Ye Vinson Admit Provider: Dandre Goldberg Primary Care Provider: Thom Babcock Other Providers: Dandre Goldberg ; [facility] ; Dr Wilfred ; Marjorie Jo ; Eriberto Malone ; Mahsa Shepherd ; Laura Rico ; Damon Mitchell ; Adenike Adkins How Other Interventions: Discharge Summary Assessment (RN) Last Done: 07/24/21 13:21 Coding Level of Care Code D/C DAY MANAGEMENT >30 MINS Diagnoses Alcohol withdrawal F10.239 Metabolic encephalopathy G93.41 Wernicke encephalopathy E51.2 Oropharyngeal dysphagia R13.12 Aspiration pneumonia J69.0 Orthostatic hypotension I95.1 Ambulatory dysfunction R26.2 Afib I48.91 CAD (coronary artery disease) I25.10 Hypertension I10 CKD (chronic kidney disease), stage III N18.3 COPD, mild J44.9 Obstructive sleep apnea G47.33 Cold sore B00.1 Hyperlipidemia E78.5 Allergic dermatitis L23.9 Tremor R25.1 Laryngeal candidiasis B37.89 Candidiasis of mouth and esophagus B37.81; B37.0 Hypercalcemia E83.52
== END 2021-07-24 17:24 | DRG 896 ==
LOC: ED 15:14 → 2W 19:31 → SUATTDRO 19:31 → 2W 21:55